=== PATIENT | female | born 1960 | race Caucasian/White ===

== ENCOUNTER 2020-08-23 08:20 | Outpatient (REF) | payer BC, SELFPAY ==
--- NOTE | ~2020-08-23 | MM_ITS ---
EXAMINATION: MM SCREENING DIGITAL BREAST TOMOSYNTHESIS, BILATERAL CLINICAL INFORMATION: Screening. Asymptomatic. The lifetime risk of breast cancer based on the Tyrer-Cuzick Model is 11.5%. COMPARISON: Mammography: August 18, 2019 and studies dating back to March 16, 2014 TECHNIQUE: Digital breast tomosynthesis is performed in both the craniocaudal and mediolateral oblique views along with computer-aided detection (CAD). Synthesized 2D images are generated from the tomosynthesis. FINDINGS: The breasts are almost entirely fatty (ACR BI-RADS breast composition Category a). There are no significant masses, abnormal calcifications, or other abnormalities. MM/MM tomosynthesis screening BI IMPRESSION: There are no significant changes from prior study. ASSESSMENT: BI-RADS 1: Negative RECOMMENDATION: Routine annual mammography screening. This patient's information was entered into a reminder system with a target due date for their next mammogram.
== END 2020-08-23 08:21 | disposition home or self-care (01) ==
LOC: HO.MAMMO 08:20
PROVIDERS: Visit Provider Internal Medicine
DX: Z12.31 Encounter for screening mammogram for malignant neoplasm of breast (principal)
CPT/HCPCS: 77063; 77067

== ENCOUNTER 2020-12-14 07:56 | Outpatient (REF) | payer BC, SELFPAY ==
[2020-12-14 12:06] LABS: Hematocrit 42.3 % (37-47); Hemoglobin 13.1 g/dl (12.0-16.0); Mean Corpuscular Hemoglobin 29.5 pg (27.0-33.0); Mean Corpuscular Volume 95.3 fL (80-98); Mean Platelet Volume 11.8 fL (9.4-12.3); Platelet Count 352 X10*3/uL (160-400); Red Blood Count 4.44 X10*6/uL (4.20-5.50); Red Cell Distribution Width 12.9 % (11.0-16.0); White Blood Count 11.8 X10*3/uL (4.8-10.8)
[2020-12-14 12:16] LABS: Creatinine Urine 101.85 mg/dL; Microalbum/Creatinine Ratio Ur 31.4 ug/mg cr
[2020-12-14 12:20] LABS: Estimated Average Glucose 169 mg/dL; Hemoglobin A1c % 7.5 %
[2020-12-14 12:29] LABS: Alanine Aminotransferase 32 U/L (0-31); Albumin Level 4.4 g/dL (3.5-5.0); Alkaline Phosphatase 80 U/L (39-117); Anion Gap 15 (12-20); Aspartate Amino Transferase 36 U/L (5-31); Bilirubin Total 0.4 mg/dL (0.0-1.0); Blood Urea Nitrogen 18 mg/dL (9-16); Carbon Dioxide 26 mmol/L (22-29); Chloride 102 mmol/L (96-108); Cholesterol 202 mg/dL; Estimated Glomerular Filt Rate > 60; Glucose Fasting 163 mg/dL (60-99); HDL Cholesterol 38 mg/dL; LDL Cholesterol Calculated 91 mg/dl; Potassium 5.1 mmol/L (3.3-5.1); Sodium 138 mmol/L (135-145); Total Protein 7.2 g/dL (6.5-8.0); Triglycerides 365 mg/dL
[2020-12-14 12:32] LABS: TSH reflex Free T4 1.33 uIU/mL (0.32-4.0)
== END 2020-12-14 07:57 | disposition home or self-care (01) ==
LOC: HO.HMGCLDS 07:56
PROVIDERS: PCP Internal Medicine; Visit Provider Internal Medicine
DX: E11.9 Type 2 diabetes mellitus without complications (principal); I10 Essential (primary) hypertension; E78.5 Hyperlipidemia, unspecified; I48.91 Unspecified atrial fibrillation
CPT/HCPCS: 36415; 80053; 80061; 82043; 83036; 84443; 85027

== ENCOUNTER 2021-05-15 07:37 | Outpatient (REF) | payer BC, SELFPAY ==
[2021-05-15 11:25] LABS: MANUAL DIFF FLAG NO
[2021-05-15 11:32] LABS: Basophils Percent Auto 0.3 % (0-2); Eosinophils Absolute Auto 0.3 X10*3/uL (0.0-0.4); Eosinophils Percent Auto 2.3 % (0-4); Hematocrit 42.2 % (37.0-47.0); Hemoglobin 13.4 g/dl (12.0-16.0); Imm Gran Abs Auto 0.05 X10*3/uL (0.00-0.03); Imm Gran Pct Auto 0.4 % (0.0-0.4); Lymphocytes Absolute Auto 3.6 X10*3/uL (1.2-4.9); Lymphocytes Percent Auto 30.6 % (20-40); Mean Corpuscular HGB Conc 31.8 g/dl (31.0-35.0); Mean Corpuscular Volume 94.4 fL (80.0-98.0); Mean Platelet Volume 12.2 fL (9.4-12.3); Monocytes Absolute Auto 0.9 X10*3/uL (0.1-1.2); Monocytes Percent Auto 7.9 % (2-11); Neutrophils Absolute Auto 6.91 x10*3/uL (2.0-8.3); Neutrophils Percent Auto 58.5 % (45-73); Platelet Count 331 X10*3/uL (160-400); Red Blood Count 4.47 X10*6/uL (4.20-5.50); Red Cell Distribution Width 13.2 % (11.0-16.0); White Blood Count 11.8 X10*3/uL (4.8-10.8)
[2021-05-15 11:53] LABS: Estimated Average Glucose 163 mg/dL; Hemoglobin A1c % 7.3 %
[2021-05-15 11:59] LABS: Creatinine Urine 147.22 mg/dL; Microalbum/Creatinine Ratio Ur 53.6 ug/mg cr
[2021-05-15 12:11] LABS: Alanine Aminotransferase 26 U/L (0-31); Albumin Level 4.2 g/dL (3.5-5.0); Alkaline Phosphatase 76 U/L (39-117); Anion Gap 16 (12-20); Aspartate Amino Transferase 30 U/L (5-31); Bilirubin Total 0.3 mg/dL (0.0-1.0); Blood Urea Nitrogen 16 mg/dL (9-16); Calcium 9.7 mg/dL (8.4-10.2); Carbon Dioxide 26 mmol/L (22-29); Chloride 102 mmol/L (96-108); Cholesterol 161 mg/dL; Estimated Glomerular Filt Rate > 60; Glucose Fasting 177 mg/dL (60-99); HDL Cholesterol 32 mg/dL; LDL Cholesterol Calculated 69 mg/dl; Potassium 4.7 mmol/L (3.3-5.1); Sodium 139 mmol/L (135-145); Total Protein 7.1 g/dL (6.5-8.0); Triglycerides 300 mg/dL
== END 2021-05-15 07:38 | disposition home or self-care (01) ==
LOC: HO.HMGCLDS 07:37
PROVIDERS: PCP Internal Medicine; Visit Provider Internal Medicine
DX: E78.5 Hyperlipidemia, unspecified (principal); I10 Essential (primary) hypertension; I48.91 Unspecified atrial fibrillation; E11.9 Type 2 diabetes mellitus without complications
CPT/HCPCS: 36415; 80053; 80061; 82043; 83036; 84443; 85025

== ENCOUNTER 2021-06-19 07:50 | Outpatient (REF) | payer BC, SELFPAY ==
--- NOTE | ~2021-06-19 | US_ITS ---
EXAMINATION: US ABDOMEN COMPLETE CLINICAL INFORMATION: Unspecified abdominal pain. COMPARISON: Ultrasound abdomen complete dated 06/26/2016. CT abdomen and pelvis with contrast dated 08/03/2008. TECHNIQUE: Real-time imaging of the abdominal viscera. FINDINGS: PANCREAS: Visualized head and proximal body the pancreas is homogeneous in echotexture. The rest of the body and the tail of pancreas is not seen. ABDOMINAL AORTA: The mid and distal segments are normal in caliber. Proximal segment is not visualized INFERIOR VENA CAVA: Visualized portions are normal. LIVER: The liver is diffusely echogenic and enlarged measuring 19.5 cm. The liver contour is normal. No focal hepatic lesion. There is no intrahepatic biliary duct dilatation seen. GALLBLADDER: Normal. The gallbladder is physiologically distended without evidence of stones, sludge, polyps, wall thickening or pericholecystic fluid. COMMON BILE DUCT: Normal in caliber measuring 0.9 cm in diameter. RIGHT KIDNEY: Normal. No hydronephrosis. No renal calculi or focal parenchymal lesions. The kidney measures 12.0 cm in maximum dimension. LEFT KIDNEY: There is an anechoic cyst in the upper/midpole measuring 6.3 x 5.9 x 5.8 cm. Previously it measured 5.0 cm No hydronephrosis or renal calculi. The kidney measures 11.4 cm in maximum dimension. SPLEEN: Normal. The spleen measures 8.5 cm in maximum dimension. FREE FLUID: None. US/US abdomen complete IMPRESSION: Hepatomegaly and hepatic steatosis. No focal lesion seen. Anechoic cyst upper/midpole left kidney. Rest of the abdominal ultrasound is unremarkable.
== END 2021-06-19 07:51 | disposition home or self-care (01) ==
LOC: HO.US 07:50
PROVIDERS: PCP Internal Medicine; Visit Provider Internal Medicine
DX: R10.9 Unspecified abdominal pain (principal)
CPT/HCPCS: 76700

== ENCOUNTER → 2021-07-05 15:32 | Outpatient (BNVA) | payer BC, SELFPAY | PROVIDERS: PCP Internal Medicine; Referring Provider Internal Medicine; Visit Provider Nurse Practitioner ==

== ENCOUNTER 2021-07-27 15:09 | Outpatient (REF) | payer BC, SELFPAY ==
[2021-07-27 15:42] LABS: Binax Internal Control QC Valid; Binax Lot number: 9864; Binax Now Covid-19 Ag Negative (Negative)
== END 2021-07-27 15:10 | disposition home or self-care (01) ==
LOC: HO.LAB 15:09
PROVIDERS: Visit Provider Internal Medicine
DX: Z20.822 Contact with and (suspected) exposure to COVID-19 (principal)
CPT/HCPCS: C9803

== ENCOUNTER 2021-08-31 11:28 | Outpatient (REF) | payer OTHER, SELFPAY ==
[2021-08-31 15:12] LABS: MANUAL DIFF FLAG NO
[2021-08-31 15:16] LABS: Basophils Absolute Auto 0.1 X10*3/uL (0.0-0.2); Basophils Percent Auto 0.5 % (0-2); Eosinophils Absolute Auto 0.2 X10*3/uL (0.0-0.4); Eosinophils Percent Auto 1.8 % (0-4); Hematocrit 41.5 % (37.0-47.0); Hemoglobin 13.2 g/dl (12.0-16.0); Imm Gran Abs Auto 0.04 X10*3/uL (0.00-0.03); Imm Gran Pct Auto 0.4 % (0.0-0.4); Lymphocytes Absolute Auto 3.4 X10*3/uL (1.2-4.9); Lymphocytes Percent Auto 31.2 % (20-40); Mean Corpuscular HGB Conc 31.8 g/dl (31.0-35.0); Mean Corpuscular Hemoglobin 29.6 pg (27.0-33.0); Mean Platelet Volume 12.6 fL (9.4-12.3); Monocytes Absolute Auto 0.9 X10*3/uL (0.1-1.2); Monocytes Percent Auto 7.9 % (2-11); Neutrophils Absolute Auto 6.3 x10*3/uL (2.0-8.3); Neutrophils Percent Auto 58.2 % (45-73); Platelet Count 293 X10*3/uL (160-400); Red Blood Count 4.46 X10*6/uL (4.20-5.50); Red Cell Distribution Width 13.1 % (11.0-16.0); White Blood Count 10.9 X10*3/uL (4.8-10.8)
[2021-08-31 15:21] LABS: INTERNATIONAL NORM RATIO 1.9 (0.9-1.1); Prothrombin Time 21.6 SEC (9.9-13.0)
[2021-08-31 15:23] LABS: Anion Gap 12 (12-20); Blood Urea Nitrogen 16 mg/dL (9-16); Calcium 9.7 mg/dL (8.4-10.2); Carbon Dioxide 30 mmol/L (22-29); Chloride 102 mmol/L (96-108); Estimated Glomerular Filt Rate > 60; Glucose Random 253 mg/dL (60-115); Potassium 4.3 mmol/L (3.3-5.1); Sodium 140 mmol/L (135-145)
== END 2021-08-31 11:29 | disposition home or self-care (01) ==
LOC: HO.HMGCLDS 11:28
PROVIDERS: PCP Internal Medicine; Visit Provider Internal Medicine Clinical Cardiac Electrophysiology
DX: I48.91 Unspecified atrial fibrillation (principal)
CPT/HCPCS: 36415; 80048; 85025; 85610

== ENCOUNTER 2021-11-09 07:31 | Outpatient (REF) | payer OTHER, SELFPAY ==
[2021-11-09 11:39] LABS: Estimated Average Glucose 166 mg/dL; Hemoglobin A1c % 7.4 %
[2021-11-09 12:14] LABS: Alanine Aminotransferase 31 U/L (0-31); Albumin Level 4.3 g/dL (3.5-5.0); Alkaline Phosphatase 89 U/L (39-117); Anion Gap 13 (12-20); Aspartate Amino Transferase 29 U/L (5-31); Bilirubin Total 0.3 mg/dL (0.0-1.0); Blood Urea Nitrogen 14 mg/dL (9-16); Calcium 10.1 mg/dL (8.4-10.2); Carbon Dioxide 30 mmol/L (22-29); Chloride 101 mmol/L (96-108); Cholesterol 155 mg/dL; Estimated Glomerular Filt Rate > 60; Glucose Fasting 164 mg/dL (60-99); HDL Cholesterol 36 mg/dL; LDL Cholesterol Calculated 78 mg/dl; Potassium 4.7 mmol/L (3.3-5.1); Sodium 139 mmol/L (135-145); Total Protein 7.2 g/dL (6.5-8.0); Triglycerides 206 mg/dL
[2021-11-09 12:30] LABS: Creatinine Urine 110.64 mg/dL; Microalbum/Creatinine Ratio Ur 44.2 ug/mg cr
== END 2021-11-09 07:32 | disposition home or self-care (01) ==
LOC: HO.HMGCLDS 07:31
PROVIDERS: PCP Internal Medicine; Visit Provider Physician Assistant
DX: I48.0 Paroxysmal atrial fibrillation (principal); I10 Essential (primary) hypertension; E78.5 Hyperlipidemia, unspecified; E11.9 Type 2 diabetes mellitus without complications
CPT/HCPCS: 36415; 80053; 80061; 82043; 83036

== ENCOUNTER → 2021-11-22 09:04 | Day surgery (SDC) | payer OTHER, SELFPAY ==
[2021-11-15 19:48] VITALS: BMI 37.2
--- NOTE | 2021-11-21 10:31 | HO.ANESPROP2 ---
Documented by User: Ruth Ferguson NP 11/21/21 10:34 HPI - Anesthesia Eval Consult details Narrative: 61yo F for Upper Endoscopy and Colonoscopy Xarelto for afib. s/p cardiac ablation 09/10/21 [facility] Active Problems Active Problems: All Active Problems (Updated 11/15/21 @ 19:47 by Caryn Guerrero, RN) Epigastric pain (Acute) Irritable bowel syndrome with both constipation and diarrhea (Acute) Abdominal pain (Acute) LORETTA (obstructive sleep apnea) (Acute) Normal colonoscopy (Acute) Mammogram normal (Acute) Normal Pap smear (Acute) Smoker (Acute) COPD (chronic obstructive pulmonary disease) (Acute) Hyperlipidemia (Acute) HTN (hypertension) (Acute) A-fib (Acute) DM type 2 (diabetes mellitus, type 2) (Acute) Past Medical History Medical History A-fib Abdominal pain COPD (chronic obstructive pulmonary disease) DM type 2 (diabetes mellitus, type 2) Ectopic GERD (gastroesophageal reflux disease) HTN (hypertension) Hyperlipidemia Mammogram normal Normal colonoscopy Normal Pap smear LORETTA (obstructive sleep apnea) Smoker Family History Family History Father Hypertension Diabetes Mother Hypertension Diabetes Heart attack History of open heart surgery Breast cancer Surgical History Surgical History (Updated 11/15/21 @ 19:45 by Caryn Guerrero RN) H/O unilateral salpingectomy History of ankle surgery History of cardiac radiofrequency ablation (RFA) Hx of removal of ovary Social History Social History Household 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:: , 3 children, 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, 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 intake: current Alcohol intake frequency: holidays/special occasions only Patient Tobacco Use Status: Current everyday Tobacco user Tobacco use type: Cigarette Cigarette Packs Per Day: 0.25 Cigarettes Per Day: 5.0 Years Smoked: 30 Smoked in Last 30 Days: Yes e-Cigarette/Vaping Use: Never Used Use of substances other than those prescribed or required for medical reasons: No Are you DNR?: No Advance Directives: No Advance Directives Information Provided: No Advance Directives on File: No Recently lost weight without trying: No Nutrition Risks: No Nutritional Risk Patient : No service: No Current occupational status: employed Current occupation: [employer] Current occupational exposures/hazards: No Cognitive needs: No Hearing needs: No Vision needs: Yes Meds Allergies Allergy/AdvReac Type Severity Reaction Status Date / Time No Known Allergies Allergy Verified 11/12/21 14:04 Home Medications Medication Instructions Recorded Confirmed Last Taken Type albuterol sulfate 90 mcg/actuation 2 puff INHALATION Q6H PRN 11/29/20 11/15/21 Unknown History aerosol inhaler (ProAir HFA) alcohol swabs pad TOPICAL QID 11/29/20 11/12/21 Unknown History blood sugar diagnostic #10 ea 11/29/20 11/15/21 Unknown History diltiazem HCl 240 mg 240 mg PO DAILY 11/29/20 11/15/21 Unknown History capsule,extended release 24 hr, controlled lancets #100 ea 11/29/20 11/15/21 Unknown History rivaroxaban 20 mg tablet 20 mg PO QPM 11/29/20 11/15/21 Unknown History multivitamin 1 tab PO DAILY 07/05/21 11/15/21 Unknown History lisinopril 10 mg tablet 20 mg PO DAILY tab 11/12/21 11/15/21 Unknown History Exam Exam Date and Time: November 21, 2021 1031 Height,Weight and Vital Signs: Height 5 ft 4 in Weight 98.43 kg Pertinent Lab Results Pertinent Lab Results: Laboratory Tests 08/31/21 11/09/21 11:39 07:38 WBC 10.9 H Hgb 13.2 Hct 41.5 Plt Count 293 Sodium 139 Potassium 4.7 Chloride 101 Carbon Dioxide 30 H BUN 14 Creatinine 0.88 Narrative Narrative: EKG 09/2021 SR @ 78 Echo 09/2019 Nml LV sys function. EF 60-65%. Nml LV diastolic function. Nml RV size and function. No significant valve disease Assessment and Plan Assessment Anesthesia Assessment: Chart Reviewed Documented by User: Oswald Templeton MD 11/22/21 10:44 HPI - Anesthesia Eval Consult details Narrative: 61yo F Presenting for elective Upper Endoscopy and Colonoscopy. On examination found to have a 70 mm Hg blood pressure difference between her left and right arms. Readings confirmed manually. Available record including cardiology note reviewed. Patient has known right subclavian stenosis, no information available on the left subclavian status. She endorses symptoms of occasional dizziness; denies history of strokes. She is not physically active and does not participate in exercise. Given her history of multi-peripheral vessel disease and large blood pressure discrepancy between the 2 arms, I am concerned about vertebro-basilar insufficiency and flow reversal. I discussed my concerns with the patient including increased risk of stroke with changes in BP under anesthesia. Patient and I agreed to defer the procedure until she undergoes workup for vertebral basilar insufficiency (CTA/MRA/angiography etc). Once she has been ruled out for VBI/flow reversal and her blood pressure discrepancy has been addressed/cleared by cardiology, we will be happy to see her back for her elective procedure. [facility] Past Medical History Medical History A-fib Abdominal pain COPD (chronic obstructive pulmonary disease) DM type 2 (diabetes mellitus, type 2) Ectopic GERD (gastroesophageal reflux disease) HTN (hypertension) Hyperlipidemia Mammogram normal Normal colonoscopy Normal Pap smear LORETTA (obstructive sleep apnea) Smoker Family History Family History Father Hypertension Diabetes Mother Hypertension Diabetes Heart attack History of open heart surgery Breast cancer Surgical History Surgical History (Updated 11/15/21 @ 19:45 by Caryn Guerrero RN) H/O unilateral salpingectomy History of ankle surgery History of cardiac radiofrequency ablation (RFA) Hx of removal of ovary Social History Social History Household 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:: , 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, 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, 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 intake: current Alcohol intake frequency: holidays/special occasions only Patient Tobacco Use Status: Current everyday Tobacco user Tobacco use type: Cigarette Cigarette Packs Per Day: 0.25 Cigarettes Per Day: 5.0 Years Smoked: 30 Smoked in Last 30 Days: Yes e-Cigarette/Vaping Use: Never Used Use of substances other than those prescribed or required for medical reasons: No Are you DNR?: No Advance Directives: No Advance Directives Information Provided: No Advance Directives on File: No Recently lost weight without trying: No Nutrition Risks: No Nutritional Risk Patient : No service: No Current occupational status: employed Current occupation: [employer] Current occupational exposures/hazards: No Cognitive needs: No Hearing needs: No Vision needs: Yes Meds Allergies Allergy/AdvReac Type Severity Reaction Status Date / Time No Known Allergies Allergy Verified 11/12/21 14:04 Home Medications Medication Instructions Recorded Confirmed Last Taken Type albuterol sulfate 90 mcg/actuation 2 puff INHALATION Q6H PRN 11/29/20 11/15/21 Unknown History aerosol inhaler (ProAir HFA) alcohol swabs pad TOPICAL QID 11/29/20 11/12/21 Unknown History blood sugar diagnostic #10 ea 11/29/20 11/15/21 Unknown History diltiazem HCl 240 mg 240 mg PO DAILY 11/29/20 11/15/21 Unknown History capsule,extended release 24 hr, controlled lancets #100 ea 11/29/20 11/15/21 Unknown History rivaroxaban 20 mg tablet 20 mg PO QPM 11/29/20 11/15/21 Unknown History multivitamin 1 tab PO DAILY 07/05/21 11/15/21 Unknown History lisinopril 10 mg tablet 20 mg PO DAILY tab 11/12/21 11/15/21 Unknown History Assessment and Plan Anesthetic Plan Anesthetic Plan: Other ( Procedure canceled)
[2021-11-22 09:22] VITALS: BMI 35.9
[2021-11-22] MEDS: Lactated Ringers 1,000 ML 50 ML IVCONT (09:44)
[2021-11-22 09:46] LABS: Glucose, Whole Blood 129 mg/dL (60-115)
--- NOTE | 2021-11-22 09:49 | P.HPSUR_ITS ---
Pre-Procedural Eval Section A Date of Service: 11/22/21 Section B Chief Complaint: Epigastric pain,IBS Relevant Family History (Specify if Yes): No Relevant Social History: Tobacco Use Present Medications: see Short Stay Collaborative assessment Medical History: Significant History (A-fib Abdominal pain COPD (chronic obstructive pulmonary disease) DM type 2 (diabetes mellitus, type 2) Ectopic GERD (gastroesophageal reflux disease) HTN (hypertension) Hyperlipidemia Mammogram normal Normal colonoscopy Normal Pap smear LORETTA (obstructive sleep apnea) Smoker) History of Previous Operations: Relevant previous surgery/procedure and date(s) (H/O unilateral salpingectomy History of ankle surgery History of cardiac radiofrequency ablation (RFA) Hx of removal of ovary) Allergies: Allergies Allergy/AdvReac Type Severity Reaction Status Date / Time No Known Allergies Allergy Verified 11/12/21 14:04 Review of Systems Sugical H&P ROS: Negative: Constitution, Cardiovascular, Respiratory, Neurological, Psychiatric, Hem-Onc, Allergic/Immunologic, Gastrointestinal, Genitourinary, Musculoskeletal, Integumentary, Endocrine and Eyes/Ears/Nose/Throat Exam Surgical H&P Exam: Normal: Heart, Normal: Lungs, Normal: Abdomen, Normal: Skin and Normal: Neurological and Significant Findings: HEENT (bruit) and Significant Findings: Extremities Exam Comment: weak pulse in left arm compare to right, discrepancy in BP in left and right arms, bruit in neck Plan Diagnosis/Plan: Change I have reviewed the history and physical and performed a pertinent physical examination on my patient.. After discussion with anesthesia case was cancelled, pt will f/u with her research and development chemist for assessment for subclavian stenosis.
--- NOTE | 2021-11-22 10:33 | P.BOP_ITS ---
Brief Operative Note Date of Service: 11/22/21 Pre-op diagnosis: Epigastric pain, Surgeon: Donell Lopez MD Was an Telephone Operator Receptionist used for this Procedure?: No
--- NOTE | 2021-11-22 10:34 | PC.NURSE ---
Per Dr Templeton due to signifigant difference in blood pressure readings on arms, patient will need cardiac clearance with specific detail to bp discrepancies. Patient aware and verbalizes understanding to the plan. Dr Templeton to print preop notes so patient has detailed description
== END ==
PROVIDERS: PCP Internal Medicine; Visit Provider Internal Medicine Gastroenterology
DX: K58.2 Mixed irritable bowel syndrome (principal); Z53.8 Procedure and treatment not carried out for other reasons; E11.9 Type 2 diabetes mellitus without complications; I10 Essential (primary) hypertension
CPT/HCPCS: 82947

== ENCOUNTER 2022-03-27 07:35 | Outpatient (REF) | payer OTHER, SELFPAY ==
[2022-03-27 11:40] LABS: Hematocrit 43.6 % (37.0-47.0); Hemoglobin 13.6 g/dl (12.0-16.0); Mean Corpuscular HGB Conc 31.2 g/dl (31.0-35.0); Mean Corpuscular Hemoglobin 29.3 pg (27.0-33.0); Mean Platelet Volume 12.3 fL (9.4-12.3); Platelet Count 322 X10*3/uL (160-400); Red Blood Count 4.64 X10*6/uL (4.20-5.50); Red Cell Distribution Width 14.1 % (11.0-16.0); White Blood Count 10.2 X10*3/uL (4.8-10.8)
[2022-03-27 11:46] LABS: Estimated Average Glucose 134 mg/dL; Hemoglobin A1c % 6.3 %
[2022-03-27 11:58] LABS: Creatinine Urine 95.64 mg/dL; Microalbum/Creatinine Ratio Ur 36.5 ug/mg cr
[2022-03-27 14:21] LABS: Alanine Aminotransferase 30 U/L (0-31); Albumin Level 4.3 g/dL (3.5-5.0); Alkaline Phosphatase 80 U/L (39-117); Anion Gap 18 (12-20); Aspartate Amino Transferase 32 U/L (5-31); Bilirubin Total 0.2 mg/dL (0.0-1.0); Blood Urea Nitrogen 13 mg/dL (9-16); Calcium 9.5 mg/dL (8.4-10.2); Carbon Dioxide 24 mmol/L (22-29); Chloride 104 mmol/L (96-108); Cholesterol 222 mg/dL; Estimated Glomerular Filt Rate > 60; Glucose Fasting 103 mg/dL (60-99); HDL Cholesterol 34 mg/dL; LDL Cholesterol Calculated 124 mg/dl; Potassium 4.4 mmol/L (3.3-5.1); Sodium 142 mmol/L (135-145); Total Protein 7.2 g/dL (6.5-8.0); Triglycerides 323 mg/dL
== END 2022-03-27 07:36 | disposition home or self-care (01) ==
LOC: HO.HMGCLDS 07:35
PROVIDERS: PCP Internal Medicine; Visit Provider Internal Medicine
DX: E78.5 Hyperlipidemia, unspecified (principal); I10 Essential (primary) hypertension; I48.91 Unspecified atrial fibrillation; E11.9 Type 2 diabetes mellitus without complications
CPT/HCPCS: 36415; 80053; 80061; 82043; 83036; 85027

== ENCOUNTER → 2022-03-28 15:11 | Outpatient (REF) | payer OTHER, SELFPAY | LOC: HO.SL 15:11 | PROVIDERS: PCP Internal Medicine; Visit Provider Internal Medicine | DX: G47.33 Obstructive sleep apnea (adult) (pediatric) (principal) | CPT/HCPCS: 95806 ==

== ENCOUNTER 2022-04-09 09:24 | Outpatient (REF) | payer OTHER, SELFPAY ==
[2022-04-09 11:40] LABS: INTERNATIONAL NORM RATIO 3.8 (0.9-1.1); Prothrombin Time 46.2 SEC (10.0-13.1)
== END 2022-04-09 09:25 | disposition home or self-care (01) ==
LOC: HO.HMGCLDS 09:24
PROVIDERS: PCP Internal Medicine; Visit Provider Internal Medicine
DX: I48.91 Unspecified atrial fibrillation (principal)
CPT/HCPCS: 36415; 85610

== ENCOUNTER 2022-04-15 07:35 | Outpatient (REF) | payer OTHER, SELFPAY ==
[2022-04-15 11:35] LABS: INTERNATIONAL NORM RATIO 4.1 (0.9-1.1); Prothrombin Time 49.8 SEC (10.0-13.1)
== END 2022-04-15 07:36 | disposition home or self-care (01) ==
LOC: HO.HMGCLDS 07:35
PROVIDERS: PCP Internal Medicine; Visit Provider Internal Medicine
DX: I48.91 Unspecified atrial fibrillation (principal)
CPT/HCPCS: 36415; 85610

== ENCOUNTER 2022-04-17 07:31 | Outpatient (REF) | payer OTHER, SELFPAY ==
[2022-04-17 11:20] LABS: INTERNATIONAL NORM RATIO 2.2 (0.9-1.1); Prothrombin Time 25.9 SEC (10.0-13.1)
== END 2022-04-17 07:32 | disposition home or self-care (01) ==
LOC: HO.HMGCLDS 07:31
PROVIDERS: PCP Internal Medicine; Visit Provider Internal Medicine
DX: I48.91 Unspecified atrial fibrillation (principal)
CPT/HCPCS: 36415; 85610

== ENCOUNTER 2022-04-22 08:50 | Outpatient (REF) | payer OTHER, SELFPAY ==
[2022-04-22 11:28] LABS: INTERNATIONAL NORM RATIO 2.2 (0.9-1.1); Prothrombin Time 25.5 SEC (10.0-13.1)
== END 2022-04-22 08:51 | disposition home or self-care (01) ==
LOC: HO.LABR 08:50
PROVIDERS: PCP Internal Medicine; Visit Provider Internal Medicine
DX: I48.91 Unspecified atrial fibrillation (principal)
CPT/HCPCS: 36415; 85610

== ENCOUNTER 2022-04-29 07:33 | Outpatient (REF) | payer OTHER, SELFPAY ==
[2022-04-29 11:39] LABS: INTERNATIONAL NORM RATIO 2.7 (0.9-1.1)
== END 2022-04-29 07:34 | disposition home or self-care (01) ==
LOC: HO.HMGCLDS 07:33
PROVIDERS: PCP Internal Medicine; Visit Provider Internal Medicine
DX: I48.91 Unspecified atrial fibrillation (principal)
CPT/HCPCS: 36415; 85610

== ENCOUNTER 2022-05-13 07:31 | Outpatient (REF) | payer OTHER, SELFPAY ==
[2022-05-13 12:02] LABS: INTERNATIONAL NORM RATIO 2.7 (0.9-1.1); Prothrombin Time 31.9 SEC (10.0-13.1)
[2022-05-13 12:12] LABS: Alanine Aminotransferase 23 U/L (0-31); Albumin Level 4.4 g/dL (3.5-5.0); Alkaline Phosphatase 74 U/L (39-117); Anion Gap 17 (12-20); Aspartate Amino Transferase 26 U/L (5-31); Bilirubin Total 0.4 mg/dL (0.0-1.0); Blood Urea Nitrogen 13 mg/dL (9-16); Calcium 9.5 mg/dL (8.4-10.2); Carbon Dioxide 26 mmol/L (22-29); Chloride 102 mmol/L (96-108); Cholesterol 161 mg/dL; Estimated Glomerular Filt Rate > 60; Glucose Fasting 155 mg/dL (60-99); HDL Cholesterol 31 mg/dL; LDL Cholesterol Calculated 84 mg/dl; Potassium 4.7 mmol/L (3.3-5.1); Sodium 140 mmol/L (135-145); Total Protein 7.3 g/dL (6.5-8.0); Triglycerides 232 mg/dL
[2022-05-13 12:28] LABS: Creatinine Urine 143.48 mg/dL
[2022-05-13 12:32] LABS: Estimated Average Glucose 140 mg/dL; Hemoglobin A1c % 6.5 %
== END 2022-05-13 07:32 | disposition home or self-care (01) ==
LOC: HO.HMGCLR 07:31
PROVIDERS: Absent Provider Internal Medicine; PCP Internal Medicine; Visit Provider Internal Medicine
DX: E11.9 Type 2 diabetes mellitus without complications (principal); I48.91 Unspecified atrial fibrillation; I10 Essential (primary) hypertension; E78.5 Hyperlipidemia, unspecified; G47.33 Obstructive sleep apnea (adult) (pediatric)
CPT/HCPCS: 36415; 80053; 80061; 82043; 83036; 85610

== ENCOUNTER → 2022-06-09 19:30 | Outpatient (REF) | payer OTHER, SELFPAY | LOC: HO.SL 19:30 | PROVIDERS: PCP Internal Medicine; Visit Provider Nurse Practitioner Family | DX: G47.34 Idiopathic sleep related nonobstructive alveolar hypoventilation (principal); G47.33 Obstructive sleep apnea (adult) (pediatric) | CPT/HCPCS: 95811 ==

== ENCOUNTER 2022-06-10 07:48 | Outpatient (REF) | payer OTHER, SELFPAY ==
[2022-06-10 11:30] LABS: INTERNATIONAL NORM RATIO 2.8 (0.9-1.1); Prothrombin Time 34.1 SEC (10.0-13.1)
== END 2022-06-10 07:49 | disposition home or self-care (01) ==
LOC: HO.HMGCLR 07:48
PROVIDERS: PCP Internal Medicine; Visit Provider Internal Medicine
DX: I48.91 Unspecified atrial fibrillation (principal); G47.34 Idiopathic sleep related nonobstructive alveolar hypoventilation; G47.33 Obstructive sleep apnea (adult) (pediatric)
CPT/HCPCS: 36415; 85610

== ENCOUNTER 2022-07-16 07:27 | Outpatient (REF) | payer OTHER, SELFPAY ==
[2022-07-16 11:41] LABS: INTERNATIONAL NORM RATIO 3.3 (0.9-1.1); Prothrombin Time 40.1 SEC (10.0-13.1)
== END 2022-07-16 07:28 | disposition home or self-care (01) ==
LOC: HO.HMGCLR 07:27
PROVIDERS: PCP Internal Medicine; Visit Provider Internal Medicine
DX: I48.91 Unspecified atrial fibrillation (principal)
CPT/HCPCS: 36415; 85610

== ENCOUNTER → 2022-07-23 14:21 | Outpatient (BNVA) | payer OTHER, SELFPAY | PROVIDERS: PCP Internal Medicine; Referring Provider Internal Medicine; Visit Provider Nurse Practitioner | DX: Z13.89 Encounter for screening for other disorder (principal) ==

== ENCOUNTER 2022-07-26 12:12 | Outpatient (REF) | payer OTHER, SELFPAY ==
[2022-07-26 14:22] LABS: INTERNATIONAL NORM RATIO 2.4 (0.9-1.1); Prothrombin Time 28.3 SEC (10.0-13.1)
== END 2022-07-26 12:13 | disposition home or self-care (01) ==
LOC: HO.HMGCLR 12:12
PROVIDERS: PCP Internal Medicine; Visit Provider Internal Medicine
DX: I48.91 Unspecified atrial fibrillation (principal)
CPT/HCPCS: 36415; 85610

== ENCOUNTER 2022-08-02 08:10 | Outpatient (REF) | payer OTHER, SELFPAY ==
--- NOTE | ~2022-08-02 | MM_ITS ---
EXAMINATION: MM SCREENING DIGITAL BREAST TOMOSYNTHESIS, BILATERAL CLINICAL INFORMATION: Screening. Asymptomatic. The lifetime risk of breast cancer based on the Tyrer-Cuzick Model is 10%. COMPARISON: Mammography: 08/23/2020, 08/18/2019, 06/11/2018 TECHNIQUE: Digital breast tomosynthesis is performed in both the craniocaudal and mediolateral oblique views along with computer-aided detection (CAD). Synthesized 2D images are generated from the tomosynthesis. FINDINGS: There are scattered areas of fibroglandular density (ACR BI-RADS breast composition Category b). Background stromal and fibroglandular densities are similar to prior studies. No significant mass. No architectural abnormality. No abnormal calcifications. The axilla and skin contours are unremarkable. MM/MM tomosynthesis screening BI IMPRESSION: No mammographic evidence of malignancy. ASSESSMENT: BI-RADS 1: Negative RECOMMENDATION: Routine annual mammography screening. This patient's information was entered into a reminder system with a target due date for their next mammogram.
== END 2022-08-02 08:11 | disposition home or self-care (01) ==
LOC: HO.MAMMO 08:10
PROVIDERS: PCP Internal Medicine; Visit Provider Internal Medicine
DX: Z12.31 Encounter for screening mammogram for malignant neoplasm of breast (principal)
CPT/HCPCS: 77063; 77067

== ENCOUNTER 2022-08-12 08:55 | Outpatient (REF) | payer OTHER, SELFPAY ==
[2022-08-12 12:15] LABS: Prothrombin Time 24.1 SEC (10.0-13.1)
== END 2022-08-12 08:56 | disposition home or self-care (01) ==
LOC: HO.HMGCLDS 08:55
PROVIDERS: Visit Provider Internal Medicine
DX: I48.91 Unspecified atrial fibrillation (principal)
CPT/HCPCS: 36415; 85610

== ENCOUNTER 2022-08-22 08:31 | Outpatient (REF) | payer OTHER, SELFPAY ==
[2022-08-22 11:29] LABS: INTERNATIONAL NORM RATIO 2.4 (0.9-1.1)
== END 2022-08-22 08:32 | disposition home or self-care (01) ==
LOC: HO.HMGCLR 08:31
PROVIDERS: PCP Internal Medicine; Visit Provider Internal Medicine
DX: I48.91 Unspecified atrial fibrillation (principal)
CPT/HCPCS: 36415; 85610

== ENCOUNTER 2022-10-15 14:08 | Outpatient (REF) | payer OTHER, SELFPAY ==
[2022-10-15 17:06] LABS: INTERNATIONAL NORM RATIO 2.6 (0.9-1.1); Prothrombin Time 31.3 SEC (10.0-13.1)
== END 2022-10-15 14:09 | disposition home or self-care (01) ==
LOC: HO.HMGCLR 14:08
PROVIDERS: PCP Internal Medicine; Visit Provider Internal Medicine
DX: I48.91 Unspecified atrial fibrillation (principal)
CPT/HCPCS: 36415; 85610

== ENCOUNTER 2022-10-30 15:05 | Outpatient (REF) | payer MEDICAID, SELFPAY ==
[2022-10-30 16:26] LABS: INTERNATIONAL NORM RATIO 2.6 (0.9-1.1); Prothrombin Time 30.9 SEC (10.0-13.1)
== END 2022-10-30 15:06 | disposition home or self-care (01) ==
LOC: HO.HMGCLDS 15:05
PROVIDERS: Visit Provider Internal Medicine
DX: I48.91 Unspecified atrial fibrillation (principal)
CPT/HCPCS: 36415; 85610

== ENCOUNTER 2022-11-26 08:14 | Outpatient (REF) | payer OTHER, SELFPAY ==
[2022-11-26 11:10] LABS: MANUAL DIFF FLAG NO
[2022-11-26 11:38] LABS: Basophils Absolute Auto 0.1 X10*3/uL (0.0-0.2); Basophils Percent Auto 0.5 % (0-2); Eosinophils Absolute Auto 0.3 X10*3/uL (0.0-0.4); Eosinophils Percent Auto 2.8 % (0-4); Hematocrit 45.1 % (37.0-47.0); Hemoglobin 14.4 g/dl (12.0-16.0); Imm Gran Abs Auto 0.03 X10*3/uL (0.00-0.03); Imm Gran Pct Auto 0.3 % (0.0-0.4); Lymphocytes Percent Auto 26.8 % (20-40); Mean Corpuscular HGB Conc 31.9 g/dl (31.0-35.0); Mean Corpuscular Hemoglobin 29.9 pg (27.0-33.0); Mean Corpuscular Volume 93.8 fL (80.0-98.0); Mean Platelet Volume 12.2 fL (9.4-12.3); Monocytes Absolute Auto 0.8 X10*3/uL (0.1-1.2); Monocytes Percent Auto 6.8 % (2-11); Neutrophils Absolute Auto 6.9 x10*3/uL (2.0-8.3); Neutrophils Percent Auto 62.8 % (45-73); Platelet Count 304 X10*3/uL (160-400); Red Blood Count 4.81 X10*6/uL (4.20-5.50); Red Cell Distribution Width 13.3 % (11.0-16.0)
[2022-11-26 11:42] LABS: INTERNATIONAL NORM RATIO 1.9 (0.9-1.1); Prothrombin Time 22.2 SEC (10.0-13.1)
[2022-11-26 11:48] LABS: Estimated Average Glucose 137 mg/dL; Hemoglobin A1c % 6.4 %
[2022-11-26 11:56] LABS: Alanine Aminotransferase 25 U/L (0-31); Albumin Level 4.3 g/dL (3.5-5.0); Alkaline Phosphatase 81 U/L (39-117); Anion Gap 12 (12-20); Aspartate Amino Transferase 24 U/L (5-31); Bilirubin Total 0.4 mg/dL (0.0-1.0); Blood Urea Nitrogen 18 mg/dL (9-16); Calcium 9.8 mg/dL (8.4-10.2); Carbon Dioxide 32 mmol/L (22-29); Chloride 100 mmol/L (96-108); Cholesterol 141 mg/dL; Estimated Glomerular Filt Rate > 60; Glucose Fasting 139 mg/dL (60-99); HDL Cholesterol 37 mg/dL; LDL Cholesterol Calculated 79 mg/dl; Potassium 4.6 mmol/L (3.3-5.1); Sodium 139 mmol/L (135-145); Total Protein 7.1 g/dL (6.5-8.0); Triglycerides 127 mg/dL
[2022-11-26 12:20] LABS: Creatinine Urine 23.36 mg/dL; Microalbumin Urine < 5.0 mg/L
== END 2022-11-26 08:15 | disposition home or self-care (01) ==
LOC: HO.HMGCLR 08:14
PROVIDERS: Absent Provider Internal Medicine; PCP Internal Medicine; Visit Provider Internal Medicine
DX: E11.9 Type 2 diabetes mellitus without complications (principal); E78.5 Hyperlipidemia, unspecified; I10 Essential (primary) hypertension; I48.91 Unspecified atrial fibrillation
CPT/HCPCS: 36415; 80053; 80061; 82043; 83036; 85025; 85610

== ENCOUNTER 2022-12-10 09:15 | Outpatient (REF) | payer OTHER, SELFPAY ==
[2022-12-10 11:38] LABS: INTERNATIONAL NORM RATIO 1.6 (0.9-1.1); Prothrombin Time 19.3 SEC (10.0-13.1)
== END 2022-12-10 09:16 | disposition home or self-care (01) ==
LOC: HO.HMGCLR 09:15
PROVIDERS: PCP Internal Medicine; Visit Provider Internal Medicine
DX: I48.91 Unspecified atrial fibrillation (principal)
CPT/HCPCS: 36415; 85610

== ENCOUNTER → 2022-12-25 08:47 | Outpatient (BNVA) | payer OTHER, SELFPAY | PROVIDERS: PCP Internal Medicine; Visit Provider Nurse Practitioner Family | DX: G47.33 Obstructive sleep apnea (adult) (pediatric) (principal); G47.34 Idiopathic sleep related nonobstructive alveolar hypoventilation | CPT/HCPCS: 99212 ==

== ENCOUNTER 2023-01-21 14:27 | Outpatient (AMB) | payer OTHER, SELFPAY ==
--- NOTE | 2023-01-21 14:29 | A.OFFVIS_ITS ---
Intake Vital Signs 01/21/23 14:52 01/21/23 14:56 Height 5 ft 4 in Weight 180 lb 12.465 oz BMI 31.0 BP 82/55 L 162/66 H Blood Pressure Location Lt brachial Rt brachial Position Sitting Sitting Pulse 94 Intake Visit Reasons: 6 month follow up Intake Note: Phyllis presents in the office as a 6 month follow up. CC: She states that she is not having any concerns today. 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 Frost said he could not see why her procedure was stopped. I want to get that in writing from him so that there are no further problems. [facility] [address] [place] [address], [address] [place] [address],?[id number] Get Directions [email or web address] Apparently, she had a large differential pressure from rt to left arm. She has been doing okay with the GI sx, she feels that the famotidine helped, but not so much the bentyl. .? RETURN OFFICE VISIT IN 6 MONTHS and I recommend he not schedule another procedure until we have written confirmation from her senior contracts administrator that this is seeing will avoid putting her through any additional inconvenience. (2) Irritable bowel syndrome with both constipation and diarrhea: ?Code(s): K58.2 - Mixed irritable bowel syndrome EGD Procedure was canceled due to subclavian stenosis and the patient needs to follow up with Cardiology Biopsy TODAY'S VISIT She found that the urgency with her bowels is driven by high fat foods like butter and [place]. She ran out of her famotidine and at that time had GERD, but this was because she lost her job and did not have insurance. She is hoping to retire in April. Her Julius is also my patient and was supposed to go for EGD/colonoscopy, but his HR was high and he was found to be in afib - he has had 4 cardioversions and he has not converted to NSR. He is on blood thinners, and begin ?all of this is quite a navarrete for me.? Because of all these troubles and the insurance sure fall she is willing to continue on her famotidine and we will discuss again if she needs an EGD in 6 mo nths. [facility] Medical History A-fib Abdominal pain COPD (chronic obstructive pulmonary disease) DM type 2 (diabetes mellitus, type 2) Ectopic GERD (gastroesophageal reflux disease) HTN (hypertension) Hyperlipidemia Mammogram normal Normal colonoscopy Normal Pap smear LORETTA (obstructive sleep apnea) Smoker Surgical History H/O unilateral salpingectomy History of ankle surgery History of cardiac radiofrequency ablation (RFA) Hx of removal of ovary Family History Father Hypertension Diabetes Mother Hypertension Diabetes Heart attack History of open heart surgery Breast cancer Social History Household 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:: , 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, 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, 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 intake: current Alcohol intake frequency: holidays/special occasions only Patient Tobacco Use Status: Current everyday Tobacco user Tobacco use type: Cigarette Cigarette Packs Per Day: 0.25 Cigarettes Per Day: 5.0 Years Smoked: 30 e-Cigarette/Vaping Use: Never Used service: No Current occupational status: employed Current occupation: [employer] Current occupational exposures/hazards: No Cognitive needs: No Hearing needs: No Vision needs: Yes Review of Systems Const Denies fatigue, Denies fever(s), Denies night sweats, Denies poor appetite and Denies weight loss ENT Reports Normal hearing present, Denies dental pain, Denies dysphagia, Denies hearing loss, Denies mouth pain, Denies odynophagia, Denies throat swelling, Denies tongue swelling and Reports other (Dentition adequate) Card Reports no additional complaints Resp Reports no additional complaints GI Reports abdominal pain, Denies melena, Denies bloating, Denies hematochezia, Denies constipation, Denies GI cramping, Denies dysphagia, Denies excessive flatus, Denies early satiety, Reports heartburn, Denies diarrhea, Reports loose stools, Denies nausea, Denies odynophagia, Denies vomiting and Denies hematemesis Skin/Breast Denies pruritus, Denies lesions, Denies rash and Denies jaundice Neuro Reports Normal hearing present and Denies Abnormal speech present Endo Denies fatigue Aller/Immun Denies throat swelling and Denies tongue swelling Physical Exam Vital Signs: Last Vital Signs Pulse 94 01/21/23 14:52 BP 162/66 H 01/21/23 14:56 BMI result Body Mass Index 31.0 Const General: cooperative, no acute distress, well developed and well groomed Nutritional Appearance: well nourished and obese Orientation/consciousness: oriented to person, oriented to place and oriented to time Limitations: No language barrier HEENT Head: Yes normocephalic and Yes atraumatic Eyes General: appearance normal, both eyes and all related structures Pupils: Equal, round and reactive pupils present Neck Neck: Yes normal visual inspection and Yes no lymphadenopathy Thyroid: Thyroid normal Resp Effort & Inspection: normal respiratory effort and able to speak in complete sentences Auscultation: clear to auscultation bilaterally Cardio Rate: regular rate Rhythm: regular rhythm Heart sounds: Normal, physiologic split S2 sound present Peripheral pulses: radial pulses present and posterior tibial pulses present GI Inspection: No distended, Yes Abdominal panniculus present and Yes obesity Palpation (GI): Soft to palpation, nontender, no guarding, not rigid and No hepatosplenomegaly present Percussion: Yes normal to percussion Auscultation: normal bowel sounds Rectal Exam - Female: deferred Skin General skin exam: no rashes or lesions noted, turgor normal, skin not dry, no jaundice, No spider nevi and no striae Rashes: no rashes Nails: normal Neuro General: oriented to person, oriented to place and oriented to time Cranial nerves: Yes Equal, round and reactive pupils present and Yes Normal hearing present Speech: No Abnormal speech present Extrem General: Yes normal to inspection, No clubbing, No cyanosis and No edema Psych Appearance: grossly normal and well kempt Mental Status: mental status grossly normal Speech and movement: Normal speech and movement present Affect: normal affect Attitude: cooperative Thought process: Normal thought process present and not confabulating Thought content: Normal thought content present Insight: Fair insight present (Psych) Judgement: Fair judgement present (Psych) Assessment & Plan Assessment & Plan (1) Epigastric pain: Code(s): R10.13 - Epigastric pain Plan: She found that the urgency with her bowels is driven by high fat foods like butter and [place]. She ran out of her famotidine and at that time had GERD, but this was because she lost her job and did not have insurance. She is hoping to retire in April. Her Julius is also my patient and was supposed to go for EGD/colonosc opy, but his HR was high and he was found to be in afib - he has had 4 cardioversions and he has not converted to NSR. He is on blood thinners, and begin ?all of this is quite a navarrete for me.? Because of all these troubles and the insurance sure fall she is willing to continue on her famotidine and we will discuss again if she needs an EGD in 6 months. (2) Irritable bowel syndrome with both constipation and diarrhea: Code(s): K58.2 - Mixed irritable bowel syndrome Medications: Refilled famotidine (Pepcid) 40 mg PO BEDTIME 90 tabs 3RF 30 days R10.13 - Epigastric pain Coding Level of Care Code Est Pt Level 3 (24249) Diagnoses Epigastric pain R10.13 Irritable bowel syndrome with both constipation and diarrhea K58.2
[2023-01-21 14:52] VITALS: BP 82/55; PULSE 94; BMI 31.0
[2023-01-21 14:56] VITALS: BP 162/66
== END 2023-01-21 15:34 | disposition home or self-care (01) ==
PROVIDERS: PCP Internal Medicine; Visit Provider Nurse Practitioner
DX: R10.13 Epigastric pain (principal); K58.2 Mixed irritable bowel syndrome
CPT/HCPCS: 99213

== ENCOUNTER → 2023-01-21 14:27 | Outpatient (BNVA) | payer OTHER, SELFPAY | PROVIDERS: PCP Internal Medicine; Visit Provider Nurse Practitioner | DX: R10.13 Epigastric pain (principal); K58.2 Mixed irritable bowel syndrome | CPT/HCPCS: 99212 ==

== ENCOUNTER 2023-04-14 08:27 | Outpatient (REF) | payer OTHER, SELFPAY ==
[2023-04-14 11:18] LABS: MANUAL DIFF FLAG NO
[2023-04-14 11:57] LABS: Basophils Absolute Auto 0.1 X10*3/uL (0.0-0.2); Basophils Percent Auto 0.6 % (0-2); Eosinophils Absolute Auto 0.4 X10*3/uL (0.0-0.4); Eosinophils Percent Auto 3.1 % (0-4); Hematocrit 44.2 % (37.0-47.0); Imm Gran Abs Auto 0.04 X10*3/uL (0.00-0.03); Imm Gran Pct Auto 0.3 % (0.0-0.4); Lymphocytes Absolute Auto 3.3 X10*3/uL (1.2-4.9); Mean Corpuscular HGB Conc 31.7 g/dl (31.0-35.0); Mean Corpuscular Hemoglobin 30.4 pg (27.0-33.0); Mean Corpuscular Volume 95.9 fL (80.0-98.0); Mean Platelet Volume 12.5 fL (9.4-12.3); Monocytes Absolute Auto 0.9 X10*3/uL (0.1-1.2); Monocytes Percent Auto 8.2 % (2-11); Neutrophils Absolute Auto 6.8 x10*3/uL (2.0-8.3); Neutrophils Percent Auto 58.8 % (45-73); Platelet Count 277 X10*3/uL (160-400); Red Blood Count 4.61 X10*6/uL (4.20-5.50); Red Cell Distribution Width 13.5 % (11.0-16.0); White Blood Count 11.5 X10*3/uL (4.8-10.8)
[2023-04-14 12:00] LABS: Estimated Average Glucose 134 mg/dL; Hemoglobin A1c % 6.3 % (<6.0)
[2023-04-14 12:35] LABS: Alanine Aminotransferase 19 U/L (0-31); Albumin Level 4.3 g/dL (3.5-5.0); Alkaline Phosphatase 76 U/L (39-117); Anion Gap 15 (12-20); Aspartate Amino Transferase 21 U/L (5-31); Bilirubin Total 0.3 mg/dL (0.0-1.0); Blood Urea Nitrogen 10 mg/dL (9-16); Calcium 10.1 mg/dL (8.4-10.2); Carbon Dioxide 27 mmol/L (22-29); Chloride 103 mmol/L (96-108); Cholesterol 136 mg/dL (<200); Estimated Glomerular Filt Rate > 60; Glucose Fasting 134 mg/dL (60-99); HDL Cholesterol 45 mg/dL (>40); LDL Cholesterol Calculated 69 mg/dL (<100); Potassium 4.4 mmol/L (3.3-5.1); Sodium 141 mmol/L (135-145); TSH reflex Free T4 0.89 uIU/mL (0.32-4.0); Total Protein 7.6 g/dL (6.5-8.0); Triglycerides 113 mg/dL (<150)
[2023-04-14 12:55] LABS: Microalbum/Creatinine Ratio Ur 25.3 ug/mg cr (<30)
== END 2023-04-14 08:28 | disposition home or self-care (01) ==
LOC: HO.HMGCLDS 08:27
PROVIDERS: Absent Provider Physician Assistant; PCP Internal Medicine; Visit Provider Internal Medicine
DX: I10 Essential (primary) hypertension (principal); I48.91 Unspecified atrial fibrillation; E11.9 Type 2 diabetes mellitus without complications; E78.5 Hyperlipidemia, unspecified; I48.0 Paroxysmal atrial fibrillation; I65.23 Occlusion and stenosis of bilateral carotid arteries; I77.1 Stricture of artery
CPT/HCPCS: 36415; 80053; 80061; 82043; 82570; 83036; 84443; 85025

== ENCOUNTER 2023-04-15 12:39 | Outpatient (AMB) | payer OTHER, SELFPAY ==
--- NOTE | 2023-04-15 12:52 | A.OFFPC_ITS ---
Vital Signs 04/15/23 12:54 Height 5 ft 4 in Weight 181 lb BMI 31.1 BP 138/56 L Blood Pressure Location Rt brachial Position Sitting Pulse 86 Pulse Source Pulse Oximeter Pulse Oximetry (%) 92 Oxygen Delivery Method Room Air Intake Visit Reasons: Follow up on diabetes Intake Note: Pt is here today for a follow up visit on DM. Allergies No Known Allergies Allergy (Verified 04/15/23 12:55) Medication List - Last Reconciled 04/15/23 by Dinora Monique MD albuterol sulfate 90 mcg/actuation 2 puffs inhalation QID PRN aspirin 81 mg PO DAILY atorvastatin 80 mg PO BEDTIME blood sugar diagnostic As directed CPAP (CPAP Machine/Device) As directed diltiazem HCl ER 240 mg PO DAILY famotidine (Pepcid) 40 mg PO BEDTIME 30 days fluticasone furoate-vilanterol 100-25 mcg/dose (Breo Ellipta) 1 inh inhalation DAILY glipizide ER 5 mg PO BID lancets As directed lisinopril 20 mg PO BID metformin 1,000 mg PO BID multivitamin 1 tab PO DAILY rivaroxaban (Xarelto) 20 mg PO DAILY Tobacco use date assessed: 04/15/23 Dental Screening Dental Screen Date: 04/15/23 Did you have a dental visit in the last 12 months?: Yes Did you have a dental problem in the last 6 months where you did not have access to dental care?: No Was dental information given to patient?: Patient has dentist HPI Follow up on diabetes HPI Details Patient presents for the follow-up of type 2 diabetes hypertension hyperlipidemia. Patient is not compliant taking her medications regularly. She had a CT angiogram of the neck consistent with left proximal subclavian artery occlusion with distal reconstitution, severe left common carotid artery stenosis. Patient has an appointment with vascular surgeon next week. She was found to have a 6 mm RUL lung nodule and thyroid nodules. [facility] Medical History (Updated 04/15/23 @ 13:57 by Dinora Monique MD) GERD (gastroesophageal reflux disease) Abdominal pain LORETTA (obstructive sleep apnea) Normal colonoscopy Mammogram normal Normal Pap smear Smoker COPD (chronic obstructive pulmonary disease) Hyperlipidemia HTN (hypertension) A-fib DM type 2 (diabetes mellitus, type 2) Ectopic Surgical History History of cardiac radiofrequency ablation (RFA) H/O unilateral salpingectomy Hx of removal of ovary History of ankle surgery Family History (Updated 04/15/23 @ 12:59 by Tiffanie Arnold Dwayne) Father Hypertension Diabetes Mother Hypertension Diabetes Heart attack History of open heart surgery Breast cancer Social History Household 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:: , 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, 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 80244 - PHQ-9 Billing: Patient declined-do not bill Source: Developed by Drs. Marcio Zamorano, Hollie Pinon, Louis Renae and colleagues, with an educational darvin from [employer] [facility]. Thrive Questionnaire Date Thrive assessed: 04/15/23 I am a: Patient What is your living situation today?: I choose not to answer this question Within the past 12 months, did the food you bought not last and you didn't have the money to get more?: I choose not to answer this question Within the past 12 months, did you worry whether your food would run out before you got money to buy more?: I choose not to answer this question Do you have trouble paying for medicines?: I choose not to answer this question Do you have trouble getting transportation to medical appointments?: I choose not to answer this question Do you have trouble paying your heating and electricity bill?: I choose not to answer this question Do you have trouble taking care of your child, family member or friend?: I choose not to answer this question Do you have trouble with day-to-day activities such as bathing, preparing meals, shopping, managing finances, etc.?: I choose not to answer this question Are you currently unemployed and looking for a job?: I choose not to answer this question Are you interested in more education?: I choose not to answer this question Please select the resources that you would like help with: None AUDIT C Alcohol Use Questionnaire (AUDIT-C) 1. How often do you have a drink containing alcohol?: Monthly or less 2. How many drinks containing alcohol do you have on a typical day when you are drinking?: 1 or 2 3. How often do you have six or more drinks on one occasion?: Never Total Score: 1 LORNA-7 AMB Questionnaire LORNA-7 Date LORNA - 7 assessed: 04/15/23 Source: Developed by Drs. Marcio Zamorano, Hollie Pinon, Louis Renae and colleagues, with an educational darvin from [facility] [facility]. LORNA-7 Assessment Billing LORNA-7 Assessment Tool: pt declined-do not bill Review of Systems Const All systems reviewed & are unremarkable except as noted in HPI and below Reports no additional complaints Eyes Reports no additional complaints ENT Reports no additional complaints Card Reports no additional complaints Resp Reports no additional complaints GI Reports no additional complaints Reports no additional complaints Physical exam (Primary Care) Vital Signs: Last Vital Signs Pulse 86 04/15/23 12:54 BP 138/56 L 04/15/23 12:54 Pulse Ox 92 04/15/23 12:54 Oxygen Delivery Method Room Air 04/15/23 12:54 BMI result Body Mass Index 31.1 Tobacco/Smoking Status: Tobacco use Status Tobacco use date assessed 04/15/23 04/15/23 12:59 Patient Tobacco Use Status Current everyday Tobacco 04/15/23 12:54 Tobacco use type Cigarette 04/15/23 12:54 e-Cigarette/Vaping Use Never Used 04/15/23 12:54 Thrive Assessment: Date of Thrive Assessment Date Thrive assessed 04/15/23 04/15/23 13:01 Const General: no acute distress HENMT Head: Yes normal to inspection Face and sinus: Yes normal facial exam Throat: Yes posterior oropharynx normal Eyes General: appearance normal, both eyes and all related structures Neck Neck: Yes supple Resp Effort & Inspection: normal respiratory effort Auscultation: clear to auscultation bilaterally Cardio Rhythm: regular rhythm Heart sounds: S1 normal heart sound present and S2 normal heart sound present GI Inspection: Yes normal to inspection Palpation (GI): Soft to palpation Percussion: Yes normal to percussion Auscultation: normal bowel sounds Assessment and Plan Assessment & Plan (1) Lung nodule: Comment: 6 mm RUL on neck CT angiogram 02/02, obtain chest CT Code(s): R91.1 - Solitary pulmonary nodule (2) Thyroid nodule: Code(s): E04.1 - Nontoxic single thyroid nodule Plan: Obtain thyroid ultrasound (3) Carotid artery disease: Comment: L common severe stenosis, L internal 50% stenosis, R internal <50%, neck CT angiogram 02/02, referred to vascular surg Code(s): I77.9 - Disorder of arteries and arterioles, unspecified Plan: Follow-up with vascular surgery (4) Left subclavian artery occlusion: Comment: segmental, proximal, with distal flow reconstitution 02/02, referred to vascular surg 03/05 Code(s): I70.8 - Atherosclerosis of other arteries Plan: Follow-up with vascular surgery (5) HTN (hypertension): Code(s): I10 - Essential (primary) hypertension Plan: Continue current medications (6) Hyperlipidemia: Code(s): E78.5 - Hyperlipidemia, unspecified Plan: Continue statin (7) DM type 2 (diabetes mellitus, type 2): Code(s): E11.9 - Type 2 diabetes mellitus without complications Plan: A1c is 6.4, ADA diet regular physical activity discussed with the patient she will check the prize of [place] with her insurance. Medication compliance discussed with the patient. Return in 4 months with a fasting labs before (8) A-fib: Comment: [facility] Dr. Frost , Q 6 months Code(s): I48.91 - Unspecified atrial fibrillation Plan: On Xarelto and diltiazem, follow-up with Cardiology (9) Smoker: Comment: 07/15 ppd Code(s): F17.200 - Nicotine dependence, unspecified, uncomplicated Plan: Tobacco quitting discussed with the patient Orders: Orders US thyroid Today E04.1 - Nontoxic single thyroid nodule Lipid Panel 4 Months E11.9 - Type 2 diabetes mellitus without complications, E78.5 - Hyperlipidemia, unspecified, I10 - Essential (primary) hypertension, I48.91 - Unspecified atrial fibrillation Microalbumin, Random (w Creat) 4 Months E11.9 - Type 2 diabetes mellitus without complications, E78.5 - Hyperlipidemia, unspecified, I10 - Essential (primary) hypertension, I48.91 - Unspecified atrial fibrillation CT chest wo con - High Res Today R91.1 - Solitary pulmonary nodule Comprehensive [place]. Panel Fast 4 Months E11.9 - Type 2 diabetes mellitus without complications, E78.5 - Hyperlipidemia, unspecified, I10 - Essential (primary) hypertension, I48.91 - Unspecified atrial fibrillation Hemoglobin A1c 4 Months E11.9 - Type 2 diabetes mellitus without complications, E78.5 - Hyperlipidemia, unspecified, I10 - Essential (primary) hypertension, I48.91 - Unspecified atrial fibrillation Medications: Changed From atorvastatin 40 mg PO BEDTIME 90 tabs 3RF E78.5 - Hyperlipidemia, unspecified To atorvastatin 80 mg PO BEDTIME E78.5 - Hyperlipidemia, unspecified Coding Level of Care Code Est Pt Level 4 (68180) Diagnoses Lung nodule R91.1 Thyroid nodule E04.1 Carotid artery disease I77.9 Left subclavian artery occlusion I70.8 HTN (hypertension) I10 Hyperlipidemia E78.5 DM type 2 (diabetes mellitus, type 2) E11.9 A-fib I48.91 Smoker F17.200
[2023-04-15 12:54] VITALS: BP 138/56; PULSE 86; O2SAT 92; BMI 31.1
== END 2023-04-15 13:59 | disposition home or self-care (01) ==
PROVIDERS: PCP Internal Medicine; Visit Provider Internal Medicine
DX: R91.1 Solitary pulmonary nodule (principal); I77.9 Disorder of arteries and arterioles, unspecified; E11.9 Type 2 diabetes mellitus without complications; I48.91 Unspecified atrial fibrillation; E04.1 Nontoxic single thyroid nodule; I70.8 Atherosclerosis of other arteries; I10 Essential (primary) hypertension; E78.5 Hyperlipidemia, unspecified; F17.210 Nicotine dependence, cigarettes, uncomplicated
CPT/HCPCS: 99214

== ENCOUNTER 2023-07-22 09:25 | Outpatient (AMB) | payer OTHER, SELFPAY ==
--- NOTE | 2023-07-22 09:32 | MHC.OFFVIS ---
Intake Vital Signs 07/22/23 09:33 Height 5 ft 4 in Weight 175 lb 7.807 oz BMI 30.1 BP 119/56 L Blood Pressure Location Rt brachial Position Sitting Pulse 75 Intake Visit Reasons: 6 mnth follow up Intake Note: Phyllis presents in the office as a 6 month follow up. CC: She reports a little of constipation. Denies other GI symptoms today. 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 She ran out of her famotidine and at that time had GERD, but this was because she lost her job and did not have insurance. She is hoping to retire in April. Her Julius is also my patient and was supposed to go for EGD/colonoscopy, but his HR was high and he was found to be in afib - he has had 4 cardioversions and he has not converted to NSR. He is on blood thinners, and begin ?all of this is quite a navarrete for me.? Because of all these troubles and the insurance sure fall she is willing to continue on her famotidine and we will discuss again if she needs an EGD in 6 months. (2) Irritable bowel syndrome with both constipation and diarrhea: Code(s): K58.2 - Mixed irritable bowel syndrome Medications: Refilled famotidine (Pepcid ) 40 mg PO BEDTIME 9 0 tabs 3RF 30 days R10.13 - Epigastri c pain EGD Procedure was canceled due to subclavian stenosis and the patient needs to follow up with Cardiology Biopsy Laboratory Tests 04/14/23 08:36 WBC 11.5 H Hgb 14.0 Hct 44.2 Plt Count 277 Estimated GFR > 60 Hemoglobin A1c % 6.3 H Total Bilirubin 0.3 AST 21 ALT 19 Alkaline Phosphata se 76 TSH 0.89 TODAY'S VISIT Computed Tomography Technologist [facility] cardiology re: stenosis. She says her res counselor did not feel the procedures should be a problem, we will have to contact them. She is doing well with her famotidine. She has been having some increasing constipation recently, she is not sure why there is been no medicine changes, and she purchased some cuom-spz-qfjefwf stool softeners to try to address this. If this continues I will be more than happy to help her manage this.. She also brings up the fact that she has been having vaginal itching and discharge without any risk of STD which likely is a vaginal yeast infection. We discussed the use of hkic-noz-ebeqrad Monistat either 3 day suppositories or 7 day creams and if this is not resolved then she can feel free to contact me about this.. Her needs an appt to see me, he was struggling with afib but has now been cardioverted and is ready for colonoscopy. I will have him make a follow-up appointment to see me today we will go from there. There are no prior problems with anesthesia or sedation. She has obstructive sleep apnea, AFib asthma/COPD and subclavian artery the left and we are contacting her res counselor for clearance. There are no infectious problems. There is no known family history of colon cancer or polyps and her last colonoscopy was at age 51 and was negative. Return office visit in 6 months for her chronic GERD. Of course I will see her after the colonoscopy once we obtain clearance. [facility] Medical History GERD (gastroesophageal reflux disease) Abdominal pain LORETTA (obstructive sleep apnea) Normal colonoscopy Mammogram normal Normal Pap smear Smoker COPD (chronic obstructive pulmonary disease) Hyperlipidemia HTN (hypertension) A-fib DM type 2 (diabetes mellitus, type 2) Ectopic Surgical History History of cardiac radiofrequency ablation (RFA) H/O unilateral salpingectomy Hx of removal of ovary History of ankle surgery Family History Father Hypertension Diabetes Mother Hypertension Diabetes Heart attack History of open heart surgery Breast cancer Social History Household 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:: , 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, 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, 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 intake: current Alcohol intake frequency: holidays/special occasions only Patient Tobacco Use Status: Current everyday Tobacco user Tobacco use type: Cigarette Cigarette Packs Per Day: 0.25 Cigarettes Per Day: 5.0 Years Smoked: 30 e-Cigarette/Vaping Use: Never Used service: No Current occupational status: employed Current occupation: [employer] t[employer] Current occupational exposures/hazards: No Cognitive needs: No Hearing needs: No Vision needs: Yes Review of Systems Const Denies fatigue, Denies fever(s), Denies night sweats, Denies poor appetite and Denies weight loss ENT Reports Normal hearing present, Denies dental pain, Denies dysphagia, Denies hearing loss, Denies mouth pain, Denies odynophagia, Denies throat swelling, Denies tongue swelling and Reports other (Dentition adequate) Card Reports no additional complaints Resp Reports no additional complaints GI Denies abdominal pain, Denies melena, Denies bloating, Denies hematochezia, Reports constipation, Denies GI cramping, Denies dysphagia, Denies excessive flatus, Denies early satiety, Reports heartburn, Denies diarrhea, Denies nausea, Denies odynophagia, Denies vomiting and Denies hematemesis Reports vaginal discharge and Reports vaginal pruritus Skin/Breast Denies pruritus, Denies lesions, Denies rash and Denies jaundice Neuro Reports Normal hearing present and Denies Abnormal speech present Endo Denies fatigue Aller/Immun Denies throat swelling and Denies tongue swelling Physical Exam Vital Signs: Last Vital Signs Pulse 75 07/22/23 09:33 BP 119/56 L 07/22/23 09:33 BMI result Body Mass Index 30.1 Const General: cooperative, no acute distress, well developed and well groomed Nutritional Appearance: well nourished and overweight Orientation/consciousness: oriented to person, oriented to place and oriented to time Limitations: No language barrier HEENT Head: Yes normocephalic and Yes atraumatic Eyes General: appearance normal, both eyes and all related structures Pupils: Equal, round and reactive pupils present Neck Neck: Yes normal visual inspection and Yes no lymphadenopathy Thyroid: Thyroid normal Resp Effort & Inspection: normal respiratory effort and able to speak in complete sentences Auscultation: clear to auscultation bilaterally Cardio Rate: regular rate Rhythm: regular rhythm Heart sounds: Normal, physiologic split S2 sound present Peripheral pulses: radial pulses present and posterior tibial pulses present GI Inspection: No distended and No Abdominal panniculus present Palpation (GI): Soft to palpation, nontender, no guarding, not rigid and No hepatosplenomegaly present Percussion: Yes normal to percussion Auscultation: normal bowel sounds Rectal Exam - Female: deferred Skin General skin exam: no rashes or lesions noted, turgor normal, skin not dry, no jaundice, No spider nevi and no striae Rashes: no rashes Nails: normal Neuro General: oriented to person, oriented to place and oriented to time Cranial nerves: Yes Equal, round and reactive pupils present and Yes Normal hearing present Speech: No Abnormal speech present Extrem General: Yes normal to inspection, No clubbing, No cyanosis and No edema Psych Appearance: grossly normal and well kempt Mental Status: mental status grossly normal Speech and movement: Normal speech and movement present Affect: normal affect Attitude: cooperative Thought process: Normal thought process present and not confabulating Thought content: Normal thought content present Insight: Limited insight present (Psych) Judgement: Limited judgement present (Psych) Assessment & Plan Assessment & Plan (1) Epigastric pain: Code(s): R10.13 - Epigastric pain (2) Irritable bowel syndrome with both constipation and diarrhea: Code(s): K58.2 - Mixed irritable bowel syndrome (3) Chronic anticoagulation: Code(s): Z79.01 - technician terminal and repeater (current) use of anticoagulants (4) Left subclavian artery occlusion: Comment: segmental, proximal, with distal flow reconstitution 02/02, referred to vascular surg 03/05 Code(s): I70.8 - Atherosclerosis of other arteries (5) LORETTA (obstructive sleep apnea): Comment: CPAP USE Code(s): G47.33 - Obstructive sleep apnea (adult) (pediatric) (6) Smoker: Comment: 07/15 ppd Code(s): F17.200 - Nicotine dependence, unspecified, uncomplicated (7) COPD (chronic obstructive pulmonary disease): Code(s): J44.9 - Chronic obstructive pulmonary disease, unspecified (8) A-fib: Comment: [facility] Dr. Frost , Q 6 months Code(s): I48.91 - Unspecified atrial fibrillation (9) Pre-op examination: Code(s): Z01.818 - Encounter for other preprocedural examination (10) Constipation: Code(s): K59.00 - Constipation, unspecified (11) Vaginal yeast infection: Code(s): B37.31 - Acute candidiasis of vulva and vagina Plan Computed Tomography Technologist [facility] cardiology re: stenosis. She says her res counselor did not feel the procedures should be a problem, we will have to contact them. She is doing well with her famotidine. She has been having some increasing constipation recently, she is not sure why there is been no medicine changes, and she purchased some wzdg-yjh-tevtpak stool softeners to try to address this. If this continues I will be more than happy to help her manage this.. She also brings up the fact that she has been having vaginal itching and discharge without any risk of STD which likely is a vaginal yeast infection. We discussed the use of woui-jlr-llgycga Monistat either 3 day suppositories or 7 day creams and if this is not resolved then she can feel free to contact me about this.. Her needs an appt to see me, he was struggling with afib but has now been cardioverted and is ready for colonoscopy. I will have him make a follow-up appointment to see me today we will go from there. There are no prior problems with anesthesia or sedation. She has obstructive sleep apnea, AFib asthma/COPD and subclavian artery the left and we are contacting her res counselor for clearance. There are no infectious problems. There is no known family history of colon cancer or polyps and her last colonoscopy was at age 51 and was negative. Return office visit in 6 months for her chronic GERD. Of course I will see her after the colonoscopy once we obtain clearance. Orders: Orders EGD/Brea Combo - GI Use Only Today R10.13 - Epigastric pain Medications: Refilled famotidine (Pepcid) 40 mg PO BEDTIME 30 days 90 tabs 3RF R10.13 - Epigastric pain Coding Level of Care Code Est Pt Level 4 (65248) Diagnoses Epigastric pain R10.13 Irritable bowel syndrome with both constipation and diarrhea K58.2 Chronic anticoagulation Z79.01 Left subclavian artery occlusion I70.8 LORETTA (obstructive sleep apnea) G47.33 Smoker F17.200 COPD (chronic obstructive pulmonary disease) J44.9 A-fib I48.91 Pre-op examination Z01.818 Constipation K59.00 Vaginal yeast infection B37.31
[2023-07-22 09:33] VITALS: BP 119/56; PULSE 75; BMI 30.1
== END 2023-07-22 09:59 | disposition home or self-care (01) ==
PROVIDERS: PCP Internal Medicine; Visit Provider Nurse Practitioner
DX: R10.13 Epigastric pain (principal); K58.2 Mixed irritable bowel syndrome; Z79.01 Long term (current) use of anticoagulants; I70.8 Atherosclerosis of other arteries; G47.33 Obstructive sleep apnea (adult) (pediatric); F17.200 Nicotine dependence, unspecified, uncomplicated; J44.9 Chronic obstructive pulmonary disease, unspecified; I48.91 Unspecified atrial fibrillation; Z01.818 Encounter for other preprocedural examination; K59.00 Constipation, unspecified; B37.31 Acute candidiasis of vulva and vagina
CPT/HCPCS: 99214

== ENCOUNTER → 2023-07-22 09:25 | Outpatient (BNVA) | payer OTHER, SELFPAY | PROVIDERS: PCP Internal Medicine; Visit Provider Nurse Practitioner | DX: R10.13 Epigastric pain (principal); K58.2 Mixed irritable bowel syndrome; I70.8 Atherosclerosis of other arteries; G47.33 Obstructive sleep apnea (adult) (pediatric); J44.9 Chronic obstructive pulmonary disease, unspecified; F17.210 Nicotine dependence, cigarettes, uncomplicated; Z79.01 Long term (current) use of anticoagulants | CPT/HCPCS: 99212 ==

== ENCOUNTER 2023-08-08 08:45 | Outpatient (REF) | payer OTHER, SELFPAY | END 2023-08-08 08:46 | disposition home or self-care (01) | LOC: HO.MAMMO 08:45 | PROVIDERS: PCP Internal Medicine; Visit Provider Internal Medicine | DX: Z12.31 Encounter for screening mammogram for malignant neoplasm of breast (principal) | CPT/HCPCS: 77063; 77067 ==

== ENCOUNTER → 2023-08-08 08:45 | Outpatient (BNV) | payer OTHER, SELFPAY | PROVIDERS: PCP Internal Medicine; Visit Provider Radiology Diagnostic Radiology | DX: Z12.31 Encounter for screening mammogram for malignant neoplasm of breast (principal) | CPT/HCPCS: 77063; 77067 ==

== ENCOUNTER 2023-08-15 09:49 | Outpatient (REF) | payer OTHER, SELFPAY ==
--- NOTE | ~2023-08-15 | US_ITS ---
EXAMINATION: US THYROID CLINICAL INFORMATION: Nontoxic single thyroid nodule. COMPARISON: None available. TECHNIQUE: Linear transducer grayscale and color Doppler examination with attention to the region of the thyroid. FINDINGS: SIZE: Measurements of the thyroid lobes and nodules are given in sagittal, anteroposterior and transverse dimensions respectively. Right Thyroid Lobe: 5.1 x 1.9 x 1.8 cm, volume 9.1 mL. Parenchyma: The gland echotexture is homogeneous. Thyroid vascularity is normal. Left Thyroid Lobe: 4.2 x 1.5 x 1.7 cm, volume 5.6 mL. Parenchyma: The gland echotexture is homogeneous. Thyroid vascularity is normal. Isthmus: 0.2 cm in maximum AP dimension. Estimated total number of nodules greater than or equal to 1 cm: 2. Yard Stocker nodules are described as follows: 1. Location: Right superior. Size: 1.0 x 0.6 x 0.9 cm, volume 0.32 mL. Nodule characteristics: Composition: Spongiform (0). ACR TI-RADS total points: 0 ACR TI-RADS category: 1 2. Location: Right mid. Size: 1.0 x 0.9 x 1.0 cm, volume 0.46 mL. Nodule characteristics: Composition: Mixed cystic and solid (1). Echogenicity: Isoechoic (1). Shape: Not taller than wide (0). Margins: Smooth (0). Echogenic Foci: Macrocalcifications (1). ACR TI-RADS total points: 3 ACR TI-RADS category: 3 3. Location: Right inferior. Size: 0.6 x 0.4 x 0.6 cm, volume 0.07 mL. Nodule characteristics: Composition: Mixed cystic and solid (1). Echogenicity: Hypoechoic (2). Shape: Not taller than wide (0). Margins: Smooth (0). Echogenic Foci: None (0). ACR TI-RADS total points: 3 ACR TI-RADS category: 3 4. Location: Left superior. Size: 0.6 x 0.4 x 0.5 cm, volume 0.07 mL. Nodule characteristics: Composition: Cystic(0). ACR TI-RADS total points: 0 ACR TI-RADS category: 1 NODES: No lymphadenopathy is seen in the tissue surrounding the thyroid gland. US/US thyroid IMPRESSION: Normal-sized thyroid gland with homogeneous echotexture and normal vascularity. Small nodules as above, highest TR score nodule is TR 3 measuring 1.0 cm in the right mid thyroid. No follow-up recommended as per ACR TI-RADS. ACR TI-RADS RECOMMENDATION REFERENCE: Ultrasound-guided fine-needle aspiration, followup ultrasound, no further follow up. * TR1 (0 point) and TR2 (2 points): No FNA or follow up. * TR3 (3 points): FNA if more than or equal to 2.5 cm in maximum dimension, followup ultrasound in 1, 3 and 5 years if 1.5 to 2.4 cm in maximum dimension. * TR4 (4-6 points): FNA if more than or equal to 1.5 cm in maximum dimension, followup ultrasound in 1, 2, 3 and 5 years if 1 to 1.4 cm in maximum dimension. * TR5 (more than or equal to 7 points): FNA if more than or equal to 1 cm in maximum dimension, followup ultrasound every year for 5 years if 0.5 to 0.9 cm in maximum dimension. * TR3, TR4 or TR5 nodules that are below the size threshold for followup receive no follow up.
== END 2023-08-15 09:50 | disposition home or self-care (01) ==
LOC: HO.HMGCX 09:49
PROVIDERS: PCP Internal Medicine; Visit Provider Internal Medicine
DX: E04.1 Nontoxic single thyroid nodule (principal)
CPT/HCPCS: 76536

== ENCOUNTER 2023-09-03 08:21 | Outpatient (REF) | payer OTHER, SELFPAY ==
[2023-09-03 11:36] LABS: Estimated Average Glucose 128 mg/dL; Hemoglobin A1C 148.9803 umol/L; Hemoglobin A1c % 6.1 % (<6.0)
[2023-09-03 11:50] LABS: Creatinine Urine 90.98 mg/dL; Microalbum/Creatinine Ratio Ur 30.7 ug/mg cr (<30)
[2023-09-03 12:10] LABS: Alanine Aminotransferase 20 U/L (0-31); Albumin Level 4.1 g/dL (3.5-5.0); Alkaline Phosphatase 71 U/L (39-117); Anion Gap 12 (12-20); Aspartate Amino Transferase 20 U/L (5-31); Bilirubin Total 0.3 mg/dL (0.0-1.0); Blood Urea Nitrogen 16 mg/dL (9-16); Calcium 9.4 mg/dL (8.4-10.2); Carbon Dioxide 28 mmol/L (22-29); Chloride 107 mmol/L (96-108); Cholesterol 132 mg/dL (<200); Estimated Glomerular Filt Rate > 60; Glucose Fasting 115 mg/dL (60-99); HDL Cholesterol 35 mg/dL (>40); LDL Cholesterol Calculated 60 mg/dL (<100); Potassium 4.4 mmol/L (3.3-5.1); Sodium 143 mmol/L (135-145); Total Protein 7.3 g/dL (6.5-8.0); Triglycerides 185 mg/dL (<150)
[2023-09-03 12:11] LABS: Magnesium 2.4 mg/dL (1.6-2.6)
== END 2023-09-03 08:22 | disposition home or self-care (01) ==
LOC: HO.HMGCLDS 08:21
PROVIDERS: PCP Internal Medicine; Referring Provider Internal Medicine; Visit Provider Internal Medicine
DX: E78.5 Hyperlipidemia, unspecified (principal); I10 Essential (primary) hypertension; I48.91 Unspecified atrial fibrillation; E11.9 Type 2 diabetes mellitus without complications; E78.00 Pure hypercholesterolemia, unspecified
CPT/HCPCS: 36415; 80053; 80061; 82043; 82570; 83036; 83735

== ENCOUNTER 2023-09-04 08:21 | Outpatient (AMB) | payer OTHER, SELFPAY ==
[2023-09-04 08:22] VITALS: BP 124/74; PULSE 79; O2SAT 98; BMI 30.6
--- NOTE | 2023-09-04 08:22 | A.OFFPC_ITS ---
Vital Signs 09/04/23 08:22 Height 5 ft 4 in Weight 178 lb BMI 30.6 BP 124/74 Blood Pressure Location Rt brachial Position Sitting Pulse 79 Pulse Source Pulse Oximeter Pulse Oximetry (%) 98 Oxygen Delivery Method Room Air Intake Visit Reasons: Annual PE Intake Note: Pt is here today for PE. Allergies No Known Allergies Allergy (Verified 09/04/23 08:31) Medication List - Last Reconciled 09/04/23 by Dinora Monique MD albuterol sulfate 90 mcg/actuation 2 puffs inhalation QID PRN aspirin 81 mg PO DAILY atorvastatin 80 mg PO BEDTIME bisacodyl (Dulcolax (bisacodyl)) 10 mg (2 x 5 mg) PO BEDTIME 2 days blood sugar diagnostic As directed CPAP (CPAP Machine/Device) As directed diltiazem HCl ER 240 mg PO DAILY empagliflozin (Jardiance) 10 mg PO DAILY famotidine (Pepcid) 40 mg PO BEDTIME 30 days fluticasone furoate-vilanterol 100-25 mcg/dose (Breo Ellipta) 1 inh PO DAILY lancets As directed lisinopril 20 mg PO BID metformin 1,000 mg PO BID multivitamin 1 tab PO DAILY rivaroxaban (Xarelto) 20 mg PO DAILY Tobacco use date assessed: 09/04/23 Dental Screening Dental Screen Date: 09/04/23 Did you have a dental visit in the last 12 months?: Yes Did you have a dental problem in the last 6 months where you did not have access to dental care?: No Was dental information given to patient?: Patient has dentist HPI Annual PE HPI Details Pt presents for PE. Pt going to [place] next week. [facility] Medical History (Updated 09/04/23 @ 09:07 by Dinora Monique MD) GERD (gastroesophageal reflux disease) Abdominal pain LORETTA (obstructive sleep apnea) Normal colonoscopy Mammogram normal Normal Pap smear Smoker COPD (chronic obstructive pulmonary disease) Hyperlipidemia HTN (hypertension) A-fib DM type 2 (diabetes mellitus, type 2) Ectopic Surgical History History of cardiac radiofrequency ablation (RFA) H/O unilateral salpingectomy Hx of removal of ovary History of ankle surgery Family History Father Hypertension Diabetes Mother Hypertension Diabetes Heart attack History of open heart surgery Breast cancer Social History Household 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:: , 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, 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 1. Little interest or pleasure in doing things: not at all 2. Feeling down, depressed, or hopeless: not at all 3. Trouble falling or staying asleep, or sleeping too much: not at all 4. Feeling tired or having little energy: not at all 5. Poor appetite or overeating: not at all 6. Feeling bad about yourself - or that you are a failure or have let yourself or your family down: not at all 7. Trouble concentrating on things, such as reading the newspaper or watching television: not at all 8. Moving or speaking so slowly that other people could have noticed. Or the opposite - being so fidgety or restless that you have been moving around a lot more than usual: not at all 9. Thoughts that you would be better off or of hurting yourself in some way: not at all Total score: 0 Depression Screening Interpretation: Negative Depression Screening Done: Yes Source: Developed by Drs. Marcio Zamorano, Hollie Pinon, Louis Renae and colleagues, with an educational darvin from [employer]. Thrive Questionnaire Date Thrive assessed: 09/04/23 I am a: Patient What is your living situation today?: I have a steady place to live Within the past 12 months, did the food you bought not last and you didn't have the money to get more?: Never true Within the past 12 months, did you worry whether your food would run out before you got money to buy more?: Never true Do you have trouble paying for medicines?: No Do you have trouble getting transportation to medical appointments?: No Do you have trouble paying your heating and electricity bill?: No Do you have trouble taking care of your child, family member or friend?: No Do you have trouble with day-to-day activities such as bathing, preparing meals, shopping, managing finances, etc.?: No Are you currently unemployed and looking for a job?: No Are you interested in more education?: No Please select the resources that you would like help with: None Currently or been in a relationship where the following occur: no concerns reported THRIVE Score: 0 AUDIT C Alcohol Use Questionnaire (AUDIT-C) 1. How often do you have a drink containing alcohol?: Monthly or less 2. How many drinks containing alcohol do you have on a typical day when you are drinking?: 1 or 2 3. How often do you have six or more drinks on one occasion?: Never Total Score: 1 LORNA-7 AMB Questionnaire LORNA-7 Date LORNA - 7 assessed: 09/04/23 Feeling nervous, anxious, or on edge: 0 = Not at all Not being able to stop or control worryin = Not at all Worrying too much about different things: 0 = Not at all Trouble relaxin = Not at all Being so restless that it is hard to sit still: 0 = Not at all Becoming easily annoyed or irritable: 0 = Not at all Feeling afraid as if something awful might happen: 0 = Not at all Total LORNA-7 score (0-4 normal; 5-9 mild; 10-14 moderate; 15-21 severe): 0 Source: Developed by Drs. Marcio Zamorano, Hollie Pinon, Louis Renae and colleagues, with an educational darvin from [employer]. Review of Systems Const All systems reviewed & are unremarkable except as noted in HPI and below Reports no additional complaints Eyes Reports no additional complaints ENT Reports no additional complaints Card Reports no additional complaints Resp Reports no additional complaints GI Reports no additional complaints Reports no additional complaints Musc Reports no additional complaints Physical exam (Primary Care) Vital Signs: Last Vital Signs Pulse 79 09/04/23 08:22 BP 124/74 09/04/23 08:22 Pulse Ox 98 09/04/23 08:22 Oxygen Delivery Method Room Air 09/04/23 08:22 BMI result Body Mass Index 30.6 Tobacco/Smoking Status: Tobacco use Status Tobacco use date assessed 09/04/23 09/04/23 08:35 Patient Tobacco Use Status Current everyday Tobacco 09/04/23 08:22 Tobacco use type Cigarette 09/04/23 08:22 e-Cigarette/Vaping Use Never Used 09/04/23 08:22 PHQ-9: PHQ-9 Score PHQ-9: Total score 0 09/04/23 08:37 Depression Screening Interpretation: Negative Thrive Assessment: Date of Thrive Assessment Date Thrive assessed 09/04/23 09/04/23 08:37 Currently or been in a relationship where the following occur: no concerns reported Const General: no acute distress HENMT Head: Yes normal to inspection General nose exam: Normal external nose present Face and sinus: Yes normal facial exam Mouth: Normal oral and palatal mucosa present Throat: Yes posterior oropharynx normal Eyes General: appearance normal, both eyes and all related structures Neck Neck: Yes no lymphadenopathy and Yes supple Resp Effort & Inspection: normal respiratory effort Auscultation: clear to auscultation bilaterally Cardio Rhythm: regular rhythm Heart sounds: S1 normal heart sound present and S2 normal heart sound present GI Inspection: Yes normal to inspection Palpation (GI): Soft to palpation Percussion: Yes normal to percussion Auscultation: normal bowel sounds Extrem General: Yes no clubbing, cyanosis or edema Assessment and Plan Assessment & Plan (1) DM type 2 (diabetes mellitus, type 2): Code(s): E11.9 - Type 2 diabetes mellitus without complications Plan: A1c is 6.1, patient has been forgetting to take metformin twice a day. ADA diet regular physical activity discussed with the patient. Jardiance will be increased to 25 mg a day and patient will continue metformin 1000 mg daily (2) A-fib: Comment: [place] , status post catheter ablation 2021, f/u Q 6 months, nl Echo Code(s): I48.91 - Unspecified atrial fibrillation Plan: Anticoagulated on Xarelto and rate controlled on diltiazem. Patient follows up with a business analyst manager for breakthrough AFib episodes (3) HTN (hypertension): Code(s): I10 - Essential (primary) hypertension Plan: Continue current medications (4) Hyperlipidemia: Code(s): E78.5 - Hyperlipidemia, unspecified Plan: Continue statin (5) Carotid artery disease: Comment: L common severe stenosis, L internal 50% stenosis, R internal <50%, neck CT a ngiogram 02/02, referred to vascular surg Code(s): I77.9 - Disorder of arteries and arterioles, unspecified Plan: Follow-up with the vascular surgeon at [facility] (6) LORETTA (obstructive sleep apnea): Comment: CPAP USE Code(s): G47.33 - Obstructive sleep apnea (adult) (pediatric) Plan: Continue CPap (7) Normal colonoscopy: Comment: at 51 Plan: Patient will have colonoscopy in November (8) Smoker: Comment: 07/15 ppd Code(s): F17.200 - Nicotine dependence, unspecified, uncomplicated Plan: Tobacco quitting discussed with the pt Orders: Orders Comprehensive [place]. Panel Fast 4 Months E11.9 - Type 2 diabetes mellitus without complications, E78.5 - Hyperlipidemia, unspecified, I10 - Essential (primary) hypertension, I48.91 - Unspecified atrial fibrillation Complete Blood Count Auto Diff 4 Months E11.9 - Type 2 diabetes mellitus without complications, E78.5 - Hyperlipidemia, unspecified, I10 - Essential (primary) hypertension, I48.91 - Unspecified atrial fibrillation Hemoglobin A1c 4 Months E11.9 - Type 2 diabetes mellitus without complications, E78.5 - Hyperlipidemia, unspecified, I10 - Essential (primary) hypertension, I48.91 - Unspecified atrial fibrillation Lipid Panel 4 Months E11.9 - Type 2 diabetes mellitus without complications, E78.5 - Hyperlipidemia, unspecified, I10 - Essential (primary) hypertension, I48.91 - Unspecified atrial fibrillation Microalbumin, Random (w Creat) 4 Months E11.9 - Type 2 diabetes mellitus without complications, E78.5 - Hyperlipidemia, unspecified, I10 - Essential (primary) hypertension, I48.91 - Unspecified atrial fibrillation Medications: New lisinopril 40 mg PO DAILY 90 tabs 3RF empagliflozin (Jardiance) 25 mg PO DAILY 90 tabs 3RF lorazepam 0.5 mg PO DAILY PRN 4 tabs 0RF anxiety Changed From metformin 1,000 mg PO BID 180 tabs 3RF To metformin 1,000 mg PO DAILY 90 tabs 3RF Discontinued lisinopril Discontinued Reason: Doctor's Order 20 mg PO BID 180 tabs 3RF empagliflozin (Jardiance) Discontinued Reason: Doctor's Order 10 mg PO DAILY 90 tabs 1RF Coding Level of Care Code Est Pt Prev Care 40-64y(95827) Diagnoses DM type 2 (diabetes mellitus, type 2) E11.9 A-fib I48.91 HTN (hypertension) I10 Hyperlipidemia E78.5 Carotid artery disease I77.9 LORETTA (obstructive sleep apnea) G47.33 Normal colonoscopy Smoker F17.200
== END 2023-09-04 09:02 | disposition home or self-care (01) ==
PROVIDERS: PCP Internal Medicine; Visit Provider Internal Medicine
DX: Z00.00 Encounter for general adult medical examination without abnormal findings (principal); E11.69 Type 2 diabetes mellitus with other specified complication; I48.91 Unspecified atrial fibrillation; I77.9 Disorder of arteries and arterioles, unspecified; I10 Essential (primary) hypertension; E78.5 Hyperlipidemia, unspecified; G47.33 Obstructive sleep apnea (adult) (pediatric); F17.210 Nicotine dependence, cigarettes, uncomplicated
CPT/HCPCS: 99396

== ENCOUNTER 2023-09-25 08:13 | Outpatient (AMB) | payer OTHER, SELFPAY ==
[2023-09-25 08:48] VITALS: BP 122/60; PULSE 95; TEMP 36.6; O2SAT 98; BMI 29.5
--- NOTE | 2023-09-25 08:48 | AM.OFFWIN_ITS ---
Intake Vital Signs 09/25/23 08:48 Height 5 ft 4 in Weight 172 lb BMI 29.5 BP 122/60 Blood Pressure Location Lt brachial Position Sitting Pulse 95 Pulse Source Pulse Oximeter Temp 97.9 F Temp Source Temporal Artery Scan Pulse Oximetry (%) 98 Oxygen Delivery Method Room Air Intake Visit Reasons: EP ?Respiratory Intake Note: pt is here today for respiratory started 1 week ago Patient Tobacco Use Status: Current everyday Tobacco user Allergies No Known Allergies Allergy (Verified 09/25/23 08:49) Do you need a note to return to daycare/school/sports/work: No HPI HPI Comments History of Present Illness Details 63 y/o female patient who [facility] clinic with c/o cough, SOB, wheezing, chest congestion and fatigue x 5 days. Reports low grade fever at home. H/o COPD. Pt just returned from a [place] Trip. Family at home with similar symptoms. She has been taking OTC cough remedies with minimal relief. [facility] Medical History (Updated 09/04/23 @ 09:07 by Dinora Monique MD) GERD (gastroesophageal reflux disease) Abdominal pain LORETTA (obstructive sleep apnea) Normal colonoscopy Mammogram normal Normal Pap smear Smoker COPD (chronic obstructive pulmonary disease) Hyperlipidemia HTN (hypertension) A-fib DM type 2 (diabetes mellitus, type 2) Ectopic Surgical History History of cardiac radiofrequency ablation (RFA) H/O unilateral salpingectomy Hx of removal of ovary History of ankle surgery Family History Father Hypertension Diabetes Mother Hypertension Diabetes Heart attack History of open heart surgery Breast cancer Social History Household 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:: , 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, 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, 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 intake: current Alcohol intake frequency: holidays/special occasions only Patient Tobacco Use Status: Current everyday Tobacco user Tobacco use type: Cigarette Cigarette Packs Per Day: 0.25 Cigarettes Per Day: 5.0 Years Smoked: 30 e-Cigarette/Vaping Use: Never Used service: No Current occupational status: employed Current occupation: [employer] Current occupational exposures/hazards: No Cognitive needs: No Hearing needs: No Vision needs: Yes Review of Systems Const All systems reviewed & are unremarkable except as noted in HPI and below Physical Exam Vital Signs: Last Vital Signs Temp 97.9 F 09/25/23 08:48 Pulse 95 09/25/23 08:48 BP 122/60 09/25/23 08:48 Pulse Ox 98 09/25/23 08:48 Oxygen Delivery Method Room Air 09/25/23 08:48 BMI result Body Mass Index 29.5 Const General: comfortable and no acute distress Nutritional Appearance: overweight Orientation/consciousness: patient oriented x3 HEENT Head: Yes normocephalic Ears: external ears normal and TM abnormal with fluid behind the TM bilateral General nose exam: Abnormal mucous membranes and turbinates present boggy and erythematous Face and sinus: Yes sinuses nontender Mouth: moist mucous membranes Throat: Yes posterior oropharynx normal Resp Effort & Inspection: normal respiratory effort and able to speak in complete sentences Auscultation: rhonchi upper bilaterally and wheezes scattered wheezes Cardio Rate: regular rate Neuro General: patient oriented x3 Assessment & Plan Assessment & Plan (1) Upper respiratory infection: Code(s): J06.9 - Acute upper respiratory infection, unspecified Qualifiers: URI type: unspecified URI Qualified Code(s): J06.9 - Acute upper respiratory infection, unspecified Plan: - Rest and hydrate with warm fluids - Take medications as prescribed - Acetaminophen for pain relief. (2) Wheezing on auscultation: Code(s): R06.2 - Wheezing Plan: - Rest and hydrate with warm fluids - Take medications as prescribed - Acetaminophen for pain relief. Orders: Orders SARS-CoV2/FLU/RSV Today J06.9 - Acute upper respiratory infection, unspecified, R06.2 - Wheezing Medications: New azithromycin 500 mg PO DAILY 3 tabs 0RF 3 days J06.9 - Acute upper respiratory infection, unspecified, R06.2 - Wheezing ipratropium-albuterol 0.5 mg-3 mg(2.5 mg base)/3 mL 3 mL inhalation Q4-6H PRN 90 mL 0RF wheezing R06.2 - Wheezing prednisone 50 mg PO DAILY 5 tabs 0RF 5 days R06.2 - Wheezing benzonatate 100 mg PO TID 60 caps 0RF J06.9 - Acute upper respiratory infection, unspecified Coding Level of Care Code Est Pt Level 3 (66567) Diagnoses Upper respiratory tract infection, unspecified type J06.9 URI type: unspecified URI Wheezing on auscultation R06.2 Time Spent (min) 15
== END 2023-09-25 09:39 | disposition home or self-care (01) ==
PROVIDERS: PCP Internal Medicine; Visit Provider Nurse Practitioner Family
DX: J06.9 Acute upper respiratory infection, unspecified (principal); R06.2 Wheezing
CPT/HCPCS: 99213

== ENCOUNTER 2023-09-25 09:29 | Outpatient (REF) | payer OTHER, SELFPAY ==
[2023-09-25 14:27] LABS: Influenza A PCR NEGATIVE (Negative); Influenza B PCR NEGATIVE (Negative); Resp Syncy Virus RNA Qual PCR NEGATIVE (Negative); SARS COV2 PCR INHOUSE NEGATIVE (Negative)
== END 2023-09-25 09:30 | disposition home or self-care (01) ==
LOC: HO.LAB 09:29
PROVIDERS: Visit Provider Nurse Practitioner Family
DX: Z11.52 Encounter for screening for COVID-19 (principal); Z20.822 Contact with and (suspected) exposure to COVID-19; J06.9 Acute upper respiratory infection, unspecified; R06.2 Wheezing
CPT/HCPCS: 0241U

== ENCOUNTER 2023-11-18 08:32 | Day surgery (SDC) | payer OTHER, SELFPAY ==
--- NOTE | 2023-11-17 12:11 | P.CONAN_ITS ---
Documented by User: Ruth Ferguson NP 11/17/23 12:18 HPI - Anesthesia Eval Consult details Narrative: 63yo F for Upper Endoscopy and Colonoscopy Xarelto for afib Follows [facility] for subclavian occlusion and carotid stenosis. Last office visit 06/2023 with 1 year f/u, surveillance only Anesthesia Pre-Procedure Meds Is the patient on any of the following meds?: SGLT2 Inhib PMFSH Active Problems Active Problems: All Active Problems Vaginal yeast infection (Acute) Constipation (Acute) Pre-op examination (Acute) Chronic anticoagulation (Acute) Left subclavian artery occlusion (Acute) Carotid artery disease (Acute) Thyroid nodule (Acute) Lung nodule (Acute) Nocturnal hypoxemia (Acute) Epigastric pain (Acute) Irritable bowel syndrome with both constipation and diarrhea (Acute) Abdominal pain (Acute) LORETTA (obstructive sleep apnea) (Acute) Normal colonoscopy (Acute) Mammogram normal (Acute) Normal Pap smear (Acute) Smoker (Acute) COPD (chronic obstructive pulmonary disease) (Acute) Hyperlipidemia (Acute) HTN (hypertension) (Acute) A-fib (Acute) DM type 2 (diabetes mellitus, type 2) (Acute) Past Medical History Medical History GERD (gastroesophageal reflux disease) Abdominal pain LORETTA (obstructive sleep apnea) Normal colonoscopy Mammogram normal Normal Pap smear Smoker COPD (chronic obstructive pulmonary disease) Hyperlipidemia HTN (hypertension) A-fib DM type 2 (diabetes mellitus, type 2) Ectopic Family History Family History Father Hypertension Diabetes Mother Hypertension Diabetes Heart attack History of open heart surgery Breast cancer Surgical History Surgical History H/O colonoscopy History of cardiac radiofrequency ablation (RFA) H/O unilateral salpingectomy Hx of removal of ovary History of ankle surgery Social History Social History Household 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:: , 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, 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, 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 intake: current Alcohol intake frequency: holidays/special occasions only Patient Tobacco Use Status: Current everyday Tobacco user Tobacco use type: Cigarette Cigarette Packs Per Day: 0.25 Cigarettes Per Day: 10 Years Smoked: 30 e-Cigarette/Vaping Use: Never Used Use of substances other than those prescribed or required for medical reasons: No Are you DNR?: No Advance Directives: No Advance Directives Information Provided: Yes service: No Current occupational status: employed Current occupation: [employer] Current occupational exposures/hazards: No Cognitive needs: No Hearing needs: No Vision needs: Yes Meds Allergies Allergy/AdvReac Type Severity Reaction Status Date / Time No Known Allergies Allergy Verified 11/18/23 09:12 Home Medications ?Medication ?Instructions ?Recorded ?Confirmed ?Last Taken ?Type blood sugar diagnostic #10 ea 11/29/20 11/18/23 Unknown History diltiazem HCl 240 mg 240 mg PO DAILY 11/29/20 11/18/23 11/18/23 07:00 History capsule,extended release 24 hr, controlled lancets #100 ea 11/29/20 11/18/23 Unknown History multivitamin 1 tab PO DAILY 07/05/21 11/18/23 11/18/23 07:00 History rivaroxaban 20 mg tablet (Xarelto) 20 mg PO DAILY 01/21/23 11/18/23 11/14/23 History aspirin 81 mg tablet,delayed 81 mg PO DAILY 04/15/23 11/18/23 Unknown History release atorvastatin 40 mg tablet 80 mg PO BEDTIME 04/15/23 11/18/23 Unknown History Assessment and Plan Assessment Anesthesia Assessment: Chart Reviewed Documented by User: Anais Tamayo MD 11/18/23 10:44 HPI - Anesthesia Eval Consult details Narrative: 63yo F for Upper Endoscopy and Colonoscopy Xarelto for afib Follows [facility] for subclavian occlusion and carotid stenosis. Last office visit 06/2023 with 1 year f/u, surveillance only 11/18/23 Pre-op: Left subclavian artery stenosis. SBP Left 88, SBP Right 161 Anesthesia Pre-Procedure Meds Is the patient on any of the following meds?: SGLT2 Inhib (Last dose 11/14/23) PMFSH Active Problems Active Problems: All Active Problems Vaginal yeast infection (Acute) Constipation (Acute) Pre-op examination (Acute) Chronic anticoagulation (Acute) Left subclavian artery occlusion (Acute) Carotid artery disease (Acute) Thyroid nodule (Acute) Lung nodule (Acute) Nocturnal hypoxemia (Acute) Epigastric pain (Acute) Irritable bowel syndrome with both constipation and diarrhea (Acute) Abdominal pain (Acute) LORETTA (obstructive sleep apnea) (Acute). Uses CPAP Normal colonoscopy (Acute) Mammogram normal (Acute) Normal Pap smear (Acute) Smoker (Acute) COPD (chronic obstructive pulmonary disease) (Acute). Uses inhaler prn Hyperlipidemia (Acute) HTN (hypertension) (Acute) A-fib (Acute) DM type 2 (diabetes mellitus, type 2) (Acute) Peripheral Artery Disease Past Medical History Medical History GERD (gastroesophageal reflux disease) Abdominal pain LORETTA (obstructive sleep apnea) Normal colonoscopy Mammogram normal Normal Pap smear Smoker COPD (chronic obstructive pulmonary disease) Hyperlipidemia HTN (hypertension) A-fib DM type 2 (diabetes mellitus, type 2) Ectopic Family History Family History Father Hypertension Diabetes Mother Hypertension Diabetes Heart attack History of open heart surgery Breast cancer Family history of problems with anesthesia: No Surgical History Surgical History H/O colonoscopy History of cardiac radiofrequency ablation (RFA) H/O unilateral salpingectomy Hx of removal of ovary History of ankle surgery History of Problems with Anesthesia: No Social History Social History 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:: , 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, 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, 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 intake: current Alcohol intake frequency: holidays/special occasions only Patient Tobacco Use Status: Current everyday Tobacco user Tobacco use type: Cigarette Cigarette Packs Per Day: 0.25 Cigarettes Per Day: 10 Years Smoked: 30 e-Cigarette/Vaping Use: Never Used Use of substances other than those prescribed or required for medical reasons: No Are you DNR?: No Advance Directives: No Advance Directives Information Provided: Yes service: No Current occupational status: employed Current occupation: [employer] Current occupational exposures/hazards: No Cognitive needs: No Hearing needs: No Vision needs: Yes Meds Allergies Allergy/AdvReac Type Severity Reaction Status Date / Time No Known Allergies Allergy Verified 11/18/23 09:12 Home Medications ?Medication ?Instructions ?Recorded ?Confirmed ?Last Taken ?Type blood sugar diagnostic #10 ea 11/29/20 11/18/23 Unknown History diltiazem HCl 240 mg 240 mg PO DAILY 11/29/20 11/18/23 11/18/23 07:00 History capsule,extended release 24 hr, controlled lancets #100 ea 11/29/20 11/18/23 Unknown History multivitamin 1 tab PO DAILY 07/05/21 11/18/23 11/18/23 07:00 History rivaroxaban 20 mg tablet (Xarelto) 20 mg PO DAILY 01/21/23 11/18/23 11/14/23 History aspirin 81 mg tablet,delayed 81 mg PO DAILY 04/15/23 11/18/23 Unknown History release atorvastatin 40 mg tablet 80 mg PO BEDTIME 04/15/23 11/18/23 Unknown History Exam Height,Weight and Vital Signs: Height 5 ft 4 in Weight 76.204 kg Vital Signs Temp Pulse Resp BP Pulse Ox O2 Del Method 11/18/23 10:04 76 16 11/18/23 09:29 97.5 F 86 16 150/56 H 96 Room Air Pertinent Lab Results Pertinent Lab Results: Lab Results 11/18/23 Range/Units 09:46 POC Glucose 116 H (60-115) mg/dL Airway Mallampati Class: III TM Dist: >3cm Neck ROM: Full Loose/Missing/Broken Teeth: No (Denies broken, loose, missing teeth) Heart: RRR Lungs: Occasional wheeze s/p respiratory treatment with albuterol Assessment and Plan Assessment Anesthesia Assessment: Anesthesia Plan Discussed and Chart Reviewed Final Anesthetic Review Family History of Problems with Anesthesia: No History of Problems with Anesthesia: No NPO: Yes ASA Class: III Final Preanesthetic Review: No Changes in Pt Med Stat, Meds/Allgs Chart Reviewed, Consent Obtained/Reviewed and Anes Risks/Benef Reviewed Patient Risk: Intermediate Procedure Risk: Low Assessment/Block/Sedation in SS: Assess/Block/Sedation-SS Anesthetic Plan Anesthetic Plan: MAC: and TIVA Disposition: Standard PACU
--- NOTE | 2023-11-18 09:16 | MHC.SHP ---
Pre-Procedural Eval Section A - 24 Hr Update-Section A only Date of Service: 11/18/23 Section B - Complete if H&P > 30 days Chief Complaint: Epigastric pain,IBS Details of Present Illness: screening colonoscopy Relevant Family History (Specify if Yes): No Relevant Social History: Tobacco Use Present Medications: see Short Stay Collaborative assessment Medical History: Significant History (GERD (gastroesophageal reflux disease) Abdominal pain LORETTA (obstructive sleep apnea) Normal colonoscopy Mammogram normal Normal Pap smear Smoker COPD (chronic obstructive pulmonary disease) Hyperlipidemia HTN (hypertension) A-fib DM type 2 (diabetes mellitus, type 2) Ectopic ) History of Previous Operations: Relevant previous surgery/procedure and date(s) (unilateral salpingectomy Hx of removal of ovary History of ankle surgery) Allergies: Allergies Allergy/AdvReac Type Severity Reaction Status Date / Time No Known Allergies Allergy Verified 11/18/23 09:12 Review of Systems Sugical H&P ROS: Negative: Constitution, Cardiovascular, Respiratory, Neurological, Psychiatric, Hem-Onc, Allergic/Immunologic, Gastrointestinal, Genitourinary, Musculoskeletal, Integumentary, Endocrine and Eyes/Ears/Nose/Throat Exam Surgical H&P Exam: Normal: HEENT, Normal: Heart, Normal: Lungs, Normal: Extremities, Normal: Abdomen, Normal: Skin and Normal: Neurological Plan Diagnosis/Plan: Unchanged I have reviewed the history and physical and performed a pertinent physical examination on my patient. No changes have occurred unless specified. Time Spent With Patient Time: Total time managing care of this patient today ____ minutes.
[2023-11-18 09:25] VITALS: BMI 28.8
[2023-11-18 09:29] VITALS: BP 150/56; PULSE 86; RESP 16; TEMP 36.4; O2SAT 96
[2023-11-18] MEDS: Lactated Ringers 1,000 ML 100 ML IVCONT (09:39)
--- NOTE | 2023-11-18 09:54 | HO.OPN-COLON ---
Colonoscopy Operative Note Operative Note Date of Service: 11/18/23 Narrative: Operative Information Procedure Description: EGD, Colonoscopy Indication: GERD, screening Anesthesia: MAC FLEXIBLE TRANSORAL UPPER GASTROINTESTINAL ENDOSCOPY AND COLONOSCOPY PROCEDURE NOTE UPPER ENDOSCOPY Consent: Indications for the procedure and potential complications of bleeding, perforation, reaction to medications and missed diagnosis were discussed with the patient and informed consent was obtained. Instrument: Olympus GIF H 190 J mid size upper endoscope Monitoring: Vital signs and clinical assessment, continuous EKG monitoring, Pulse oximetry, Carbon Dioxide monitoring and blood pressure monitoring were done throughout the procedure. Procedure: The patient was placed in the left lateral decubitis position and pre-procedure medications were administered and a bite block was placed. The endoscope was inserted into the mouth and advanced under direct vision to the third part of duodenum. A careful inspection was made as the upper endoscope was withdrawn including a retroflexed examination of the proximal stomach; Findings and interventions are described below. Findings: Larynx:normal Esophagus: GE junction at 39 cm, diaphragm hiatus at 42 cm, streaky erosive esophagitis, LA grade C, bx taken from GEJ and mid/proximal esophagus in separate jars, schatzki ring noted Stomach: Patchy erythema. Biopsies were obtained. Grade 2 flap valve on retroflexed examination of the cardia. Duodenum: Normal bulb and descending duodenum, Intervention: Biopsies as noted above, COLONOSCOPY Instrument: Olympus variable stiffness pediatric scope 190L Colonoscopy Monitoring: Vital signs and clinical assessment, continuous EKG monitoring, Pulse oximetry, Carbon Dioxide monitoring and blood pressure monitoring were done throughout the procedure. Colon withdrawal time was 16 minutes. Procedure: The patient was placed in the left lateral decubitis position and pre-procedure medications were administered. After a digital rectal examination of the ano-rectum, the video colonoscope was inserted into the rectum and advanced through the colon to the cecum/TI. The colonoscope was slowly withdrawn in a retrograde panoramic fashion and the colon mucosa was carefully examined including a retroflexed view of the rectum. Findings and interventions are described below. Procedure Difficulty:moderate Findings: Terminal Ileum-normal Cecum:normal Ascending Colon: 10 mm sessile polyp removed with cold snare Transverse Colon -normal Descending Colon:normal Sigmoid Colon: moderate diverticulosis Rectum: Retroflexion with small internal hemorrhoids, grade I Anorectum - normal Colon preparation: [place] Bowel Preparation Scale Right colon; 1-2 Transverse colon: 2 Left colon; 2 (0 = Unprepared colon segment with mucosa not seen due to solid stool that cannot be cleared. 1 = Portion of mucosa of the colon segment seen, but other areas of the colon segment not well seen due to staining, residual stool and/or opaque liquid. 2 = Minor amount of residual staining, small fragments of stool and/or opaque liquid, but mucosa of colon segment seen well. 3 = Entire mucosa of colon segment seen well with no residual staining, small fragments of stool or opaque liquid) Impression and Post Procedure Diagnosis: Endoscopy Findings: erosive esophagitis schatzki ring small hiatal hernia gastritis Colonoscopy Findings: diverticulosis colon polyp internal hemorrhoids Plan: Await Pathology results Repeat Colonoscopy in 5 years due to polyp or earlier if clinically indicated High fiber diet leaflet avoid straining at stool, epsom salts and sitz bath, anusol supps or cream can consider PPI Above findings were reviewed with the patient and relevant handouts were provided if indicated.
[2023-11-18 10:02] LABS: Glucose, Whole Blood 116 mg/dL (60-115)
[2023-11-18 10:04] VITALS: PULSE 76; RESP 16; O2SAT 96
[2023-11-18] MEDS: Albuterol Sulfate (0.083%) 2.5 MG/3 ML VIAL.NEB INHALE (10:04)
[2023-11-18 11:07] VITALS: BP 96/34; PULSE 88; RESP 16; TEMP 36.1; O2SAT 99
[2023-11-18 11:18] VITALS: BP 137/52; PULSE 86; RESP 14; O2SAT 96
[2023-11-18 11:24] VITALS: BP 122/62; PULSE 83; RESP 17; TEMP 36.5; O2SAT 95
== END 2023-11-18 12:21 | disposition home or self-care (01) ==
PROVIDERS: PCP Internal Medicine; Visit Provider Internal Medicine Gastroenterology
PROC: (CPT 45385; principal; 2023-11-18 10:30)
DX: Z12.11 Encounter for screening for malignant neoplasm of colon (principal); D12.2 Benign neoplasm of ascending colon; K57.30 Diverticulosis of large intestine without perforation or abscess without bleeding; K64.0 First degree hemorrhoids; R10.13 Epigastric pain; K20.80 Other esophagitis without bleeding; K29.70 Gastritis, unspecified, without bleeding; K22.2 Esophageal obstruction; K44.9 Diaphragmatic hernia without obstruction or gangrene; I10 Essential (primary) hypertension; E11.9 Type 2 diabetes mellitus without complications; J44.9 Chronic obstructive pulmonary disease, unspecified; I48.91 Unspecified atrial fibrillation; G47.33 Obstructive sleep apnea (adult) (pediatric); Z79.01 Long term (current) use of anticoagulants
CPT/HCPCS: 45385; 43239; 82947; 88305; 88313; 94640; J1596; J2704

== ENCOUNTER → 2023-11-18 08:32 | Outpatient (BNV) | payer OTHER, SELFPAY | PROVIDERS: PCP Internal Medicine; Visit Provider Internal Medicine Gastroenterology | DX: Z12.11 Encounter for screening for malignant neoplasm of colon (principal); K63.5 Polyp of colon; K57.30 Diverticulosis of large intestine without perforation or abscess without bleeding; K64.0 First degree hemorrhoids; K21.00 Gastro-esophageal reflux disease with esophagitis, without bleeding; K22.2 Esophageal obstruction; K29.70 Gastritis, unspecified, without bleeding | CPT/HCPCS: 43239; 45385 ==

== ENCOUNTER 2023-12-02 12:11 | Outpatient (AMB) | payer OTHER, SELFPAY ==
--- NOTE | 2023-12-02 12:15 | MHC.OFFVIS ---
Vital Signs 12/02/23 12:18 Height 5 ft 4 in Weight 167 lb 8.821 oz BMI 28.8 BP 123/53 L Blood Pressure Location Rt brachial Position Sitting Pulse 84 Intake Visit Reasons: s/p egd/colon Lopez Intake Note: Phyllis presents in the office as a follow up egd and colonoscopy. CC: Just here for the results! No concerns. Allergies No Known Allergies Allergy (Verified 11/18/23 09:12) HPI HPI s/p egd/colon Lopez: Details: Assessment & Plan (1) Epigastric pain: Code(s): R10.13 - Epigastric pain (2) Irritable bowel syndrome with both constipation and diarrhea: Code(s): K58.2 - Mixed irritable bowel syndrome (3) Chronic anticoagulation: Code(s): Z79.01 - halfway (current) use of anticoagulants (4) Left subclavian artery occlusion: Comment: segmental, proximal, with distal flow reconstitution 02/02, referred to vascular surg 03/05 Code(s): I70.8 - Atherosclerosis of other arteries (5) LORETTA (obstructive sleep apnea): Comment: CPAP USE Code(s): G47.33 - Obstructive sleep apnea (adult) (pediatric) (6) Smoker: Comment: 07/15 ppd Code(s): F17.200 - Nicotine dependence, unspecified, uncomplicated (7) COPD (chronic obstructive pulmonary disease): Code(s): J44.9 - Chronic obstructive pulmonary disease, unspecified (8) A-fib: Comment: [facility] Dr. Frost , Q 6 months Code(s): I48.91 - Unspecified atrial fibrillation (9) Pre-op examination: Code(s): Z01.818 - Encounter for other preprocedural examination (10) Constipation: Code(s): K59.00 - Constipation, unspecified (11) Vaginal yeast infection: Code(s): B37.31 - Acute candidiasis of vulva and vagina Plan Customer Service Correspondence Clerk [facility] cardiology re: stenosis. She says her rn maternity did not feel the procedures should be a problem, we will have to contact them. She is doing well with her famotidine. She has been having some increasing constipation recently, she is not sure why there is been no medicine changes, and she purchased some [id number] stool softeners to try to address this. If this continues I will be more than happy to help her manage this.. She also brings up the fact that she has been having vaginal itching and discharge without any risk of STD which likely is a vaginal yeast infection. We discussed the use of getg-qzu-jsxhzsz Monistat either 3 day suppositories or 7 day creams and if this is not resolved then she can feel free to contact me about this.. Her needs an appt to see me, he was struggling with afib but has now been cardioverted and is ready for colonoscopy. I will have him make a follow-up appointment to see me today we will go from there. There are no prior problems with anesthesia or sedation. She has obstructive sleep apnea, AFib asthma/COPD and subclavian artery the left and we are contacting her rn maternity for clearance. There are no infectious problems. There is no known family history of colon cancer or polyps and her last colonoscopy was at age 51 and was negative. Return office visit in 6 months for her chronic GERD. Of course I will see her after the colonoscopy once we obtain clearance. Orders: Orders EGD/[place] Combo - GI Use Only Today R10.13 - Epigastric pain Medications: Refilled famotidine (Pepcid) 40 mg PO BEDTIME 30 days 90 tabs 3RF R10.13 - Epigastric pain EGD/COLONOSCOPY 11/18/23 Findings: Larynx:normal Esophagus: GE junction at 39 cm, diaphragm hiatus at 42 cm, streaky erosive esophagitis, LA grade C, bx taken from GEJ and mid/proximal esophagus in separate jars, schatzki ring noted Stomach: Patchy erythema. Biopsies were obtained. Grade 2 flap valve on retroflexed examination of the cardia. Duodenum: Normal bulb and descending duodenum, Findings: Terminal Ileum-normal Cecum:normal Ascending Colon: 10 mm sessile polyp removed with cold snare Transverse Colon -normal Descending Colon:normal Sigmoid Colon: moderate diverticulosis Rectum: Retroflexion with small internal hemorrhoids, grade I Anorectum - normal Impression and Post Procedure Diagnosis: Endoscopy Findings: erosive esophagitis schatzki ring small hiatal hernia gastritis Colonoscopy Findings: diverticulosis colon polyp internal hemorrhoids Plan: Await Pathology results Repeat Colonoscopy in 5 years due to polyp or earlier if clinically indicated High fiber diet leaflet avoid straining at stool, epsom salts and sitz bath, anusol supps or cream can consider PPI Biopsy Received: 11/18/23 Diagnosis A. Colon, ascending, polypectomy: Sessile serrated lesion/polyp; negative for cytologic dysplasia. B. GE junction, biopsy: - Cardiofundic-type mucosa with mild chronic inactive inflammation; no intestinal metaplasia seen. - No squamous epithelium present. C. Esophagus, mid and proximal, biopsy: - Active esophagitis (few neutrophils and eosinophils). - Small fragments of gastric epithelium within normal limits TODAY'S VISIT The colonoscopy needs to be repeated in 5 years due to the finding of a sessile serrated polyp. The procedure was well tolerated. The results were explained and the patient is agreeable to the follow-up interval as stated. The bowel pattern has returned to normal. Education was provided to tell any 1st degree relatives about their findings to be sure that they are screened by age 45. Educated that they will be put on a recall list when it is time for their repeat scope but should they move out of state or away from the hospital they will need to remember along with their primary to repeat the procedure in a timely fashion to avoid any adverse complications. She does not feel HB but since she is compliant with the famotidine qhs adn still has active esphagitis will add omeprazole 20mg qam. Biopsy did not show Crystal's mucosa despite the Schatzki's ring. ROV 6 mos. PFSH Medical History (Updated 12/02/23 @ 12:41 by KAM Powell) GERD (gastroesophageal reflux disease) Abdominal pain LORETTA (obstructive sleep apnea) Normal colonoscopy Mammogram normal Normal Pap smear Smoker COPD (chronic obstructive pulmonary disease) Hyperlipidemia HTN (hypertension) A-fib DM type 2 (diabetes mellitus, type 2) Ectopic Surgical History (Updated 12/02/23 @ 12:19 by VANDANA Marrero) Hx of endoscopy H/O colonoscopy History of cardiac radiofrequency ablation (RFA) H/O unilateral salpingectomy Hx of removal of ovary History of ankle surgery Family History Father Hypertension Diabetes Mother Hypertension Diabetes Heart attack History of open heart surgery Breast cancer Social History Household 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:: , 3 children, 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, 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 intake: current Alcohol intake frequency: holidays/special occasions only Patient Tobacco Use Status: Current everyday Tobacco user Tobacco use type: Cigarette Cigarette Packs Per Day: 0.25 Cigarettes Per Day: 10 Years Smoked: 30 e-Cigarette/Vaping Use: Never Used service: No Current occupational status: employed Current occupation: [employer] Current occupational exposures/hazards: No Cognitive needs: No Hearing needs: No Vision needs: Yes Review of Systems Const Denies fatigue, Denies fever(s), Denies night sweats, Denies poor appetite and Denies weight loss ENT Reports Normal hearing present, Denies dental pain, Denies dysphagia, Denies hearing loss, Denies mouth pain, Denies odynophagia, Denies throat swelling, Denies tongue swelling and Reports other (Dentition adequate) Card Reports no additional complaints Resp Reports no additional complaints GI Details: Denies abdominal pain, Denies melena, Denies bloating, Denies hematochezia, Denies constipation, Denies GI cramping, Denies dysphagia, Denies excessive flatus, Denies early satiety, Reports heartburn, Denies diarrhea, Denies nausea, Denies odynophagia, Denies vomiting and Denies hematemesis Skin/Breast Denies pruritus, Denies lesions, Denies rash and Denies jaundice Neuro Reports Normal hearing present and Denies Abnormal speech present Endo Denies fatigue Aller/Immun Denies throat swelling and Denies tongue swelling Physical Exam Vital Signs: Last Vital Signs Pulse 84 12/02/23 12:18 BP 123/53 L 12/02/23 12:18 BMI result Body Mass Index 28.8 Const General: cooperative, no acute distress, well developed and well groomed Nutritional Appearance: well nourished and overweight Orientation/consciousness: oriented to person, oriented to place and oriented to time Limitations: No language barrier HEENT Head: Yes normocephalic and Yes atraumatic Eyes General: appearance normal, both eyes and all related structures Pupils: Equal, round and reactive pupils present Neck Neck: Yes normal visual inspection and Yes no lymphadenopathy Thyroid: Thyroid normal Resp Effort & Inspection: normal respiratory effort and able to speak in complete sentences Auscultation: clear to auscultation bilaterally Cardio Rate: regular rate Rhythm: regular rhythm Heart sounds: Normal, physiologic split S2 sound present Peripheral pulses: radial pulses present and posterior tibial pulses present GI Inspection: No distended and No Abdominal panniculus present Palpation (GI): Soft to palpation, nontender, no guarding, not rigid and No hepatosplenomegaly present Percussion: Yes normal to percussion Auscultation: normal bowel sounds Rectal Exam - Female: deferred Skin General skin exam: no rashes or lesions noted, turgor normal, skin not dry, no jaundice, No spider nevi and no striae Rashes: no rashes Nails: normal Neuro General: oriented to person, oriented to place and oriented to time Cranial nerves: Yes Equal, round and reactive pupils present and Yes Normal hearing present Speech: No Abnormal speech present Extrem General: Yes normal to inspection, No clubbing, No cyanosis and No edema Psych Appearance: grossly normal and well kempt Mental Status: mental status grossly normal Speech and movement: Normal speech and movement present Affect: normal affect Attitude: cooperative Thought process: Normal thought process present and not confabulating Thought content: Normal thought content present Insight: Fair insight present (Psych) Judgement: Fair judgement present (Psych) Results Reviewed Results Reviewed: EGD/COLONOSCOPY 11/18/23 Findings: Larynx:normal Esophagus: GE junction at 39 cm, diaphragm hiatus at 42 cm, streaky erosive esophagitis, LA grade C, bx taken from GEJ and mid/proximal esophagus in separate jars, schatzki ring noted Stomach: Patchy erythema. Biopsies were obtained. Grade 2 flap valve on retroflexed examination of the cardia. Duodenum: Normal bulb and descending duodenum, Findings: Terminal Ileum-normal Cecum:normal Ascending Colon: 10 mm sessile polyp removed with cold snare Transverse Colon -normal Descending Colon:normal Sigmoid Colon: moderate diverticulosis Rectum: Retroflexion with small internal hemorrhoids, grade I Anorectum - normal Impression and Post Procedure Diagnosis: Endoscopy Findings: erosive esophagitis schatzki ring small hiatal hernia gastritis Colonoscopy Findings: diverticulosis colon polyp internal hemorrhoids Plan: Await Pathology results Repeat Colonoscopy in 5 years due to polyp or earlier if clinically indicated High fiber diet leaflet avoid straining at stool, epsom salts and sitz bath, anusol supps or cream can consider PPI Biopsy Received: 11/18/23 Diagnosis A. Colon, ascending, polypectomy: Sessile serrated lesion/polyp; negative for cytologic dysplasia. B. GE junction, biopsy: - Cardiofundic-type mucosa with mild chronic inactive inflammation; no intestinal metaplasia seen. - No squamous epithelium present. C. Esophagus, mid and proximal, biopsy: - Active esophagitis (few neutrophils and eosinophils). - Small fragments of gastric epithelium within normal limits Assessment & Plan Assessment & Plan (1) Erosive esophagitis: Code(s): K22.10 - Ulcer of esophagus without bleeding Category: Medical (2) Tubular adenoma of colon: Comment: 2023 SCOPE= SESSILE SERRATED, REPEAT IN 5 YEARS Code(s): D12.6 - Benign neoplasm of colon, unspecified Category: Medical Plan The colonoscopy needs to be repeated in 5 years due to the finding of a sessile serrated polyp. The procedure was well tolerated. The results were explained and the patient is agreeable to the follow-up interval as stated. The bowel pattern has returned to normal. Education was provided to tell any 1st degree relatives about their findings to be sure that they are screened by age 45. Educated that they will be put on a recall list when it is time for their repeat scope but should they move out of state or away from the hospital they will need to remember along with their primary to repeat the procedure in a timely fashion to avoid any adverse complications. She does not feel HB but since she is compliant with the famotidine qhs adn still has active esphagitis will add omeprazole 20mg qam. Biopsy did not show Crystal's mucosa despite the Schatzki's ring. ROV 6 mos. Medications: New omeprazole 20 mg PO QAM 30 caps 6RF 30 days K22.10 - Ulcer of esophagus without bleeding Refilled famotidine (Pepcid) 40 mg PO BEDTIME 90 tabs 3RF 30 days R10.13 - Epigastric pain Coding Level of Care Code Est Pt Level 3 (54291) Diagnoses Erosive esophagitis K22.10 Tubular adenoma of colon D12.6
[2023-12-02 12:18] VITALS: BP 123/53; PULSE 84; BMI 28.8
== END 2023-12-02 12:52 | disposition home or self-care (01) ==
PROVIDERS: PCP Internal Medicine; Referring Provider Internal Medicine; Visit Provider Nurse Practitioner
DX: K22.10 Ulcer of esophagus without bleeding (principal); D12.6 Benign neoplasm of colon, unspecified
CPT/HCPCS: 99213

== ENCOUNTER → 2023-12-02 12:11 | Outpatient (BNVA) | payer OTHER, SELFPAY | PROVIDERS: PCP Internal Medicine; Visit Provider Nurse Practitioner | DX: K22.10 Ulcer of esophagus without bleeding (principal); D12.6 Benign neoplasm of colon, unspecified | CPT/HCPCS: 99212 ==

== ENCOUNTER 2023-12-15 08:55 | Outpatient (REF) | payer OTHER, SELFPAY ==
[2023-12-15 10:19] LABS: MANUAL DIFF FLAG NO
[2023-12-15 10:38] LABS: Basophils Absolute Auto 0.1 X10*3/uL (0.0-0.2); Basophils Percent Auto 0.6 % (0-2); Eosinophils Absolute Auto 0.2 X10*3/uL (0.0-0.4); Eosinophils Percent Auto 1.8 % (0-4); Hematocrit 42.9 % (37.0-47.0); Hemoglobin 13.7 g/dl (12.0-16.0); Imm Gran Abs Auto 0.04 X10*3/uL (0.00-0.03); Imm Gran Pct Auto 0.4 % (0.0-0.4); Lymphocytes Absolute Auto 3.1 X10*3/uL (1.2-4.9); Lymphocytes Percent Auto 28.6 % (20-40); Mean Corpuscular HGB Conc 31.9 g/dl (31.0-35.0); Mean Corpuscular Hemoglobin 29.9 pg (27.0-33.0); Mean Corpuscular Volume 93.7 fL (80.0-98.0); Monocytes Absolute Auto 0.9 X10*3/uL (0.1-1.2); Monocytes Percent Auto 8.4 % (2-11); Neutrophils Absolute Auto 6.6 x10*3/uL (2.0-8.3); Neutrophils Percent Auto 60.2 % (45-73); Platelet Count 312 X10*3/uL (160-400); Red Blood Count 4.58 X10*6/uL (4.20-5.50); Red Cell Distribution Width 14.3 % (11.0-16.0); White Blood Count 10.9 X10*3/uL (4.8-10.8)
[2023-12-15 10:59] LABS: Alanine Aminotransferase 20 U/L (0-31); Albumin Level 4.3 g/dL (3.5-5.0); Alkaline Phosphatase 74 U/L (39-117); Anion Gap 12 (12-20); Aspartate Amino Transferase 22 U/L (5-31); Bilirubin Total 0.2 mg/dL (0.0-1.0); Blood Urea Nitrogen 24 mg/dL (9-16); Calcium 10.2 mg/dL (8.4-10.2); Carbon Dioxide 28 mmol/L (22-29); Chloride 104 mmol/L (96-108); Cholesterol 128 mg/dL (<200); Creatinine Urine 99.85 mg/dL; Estimated Glomerular Filt Rate 57; Glucose Fasting 105 mg/dL (60-99); HDL Cholesterol 35 mg/dL (>40); LDL Cholesterol Calculated 68 mg/dL (<100); Potassium 4.7 mmol/L (3.3-5.1); Sodium 139 mmol/L (135-145); Total Protein 7.3 g/dL (6.5-8.0); Triglycerides 129 mg/dL (<150)
[2023-12-15 11:04] LABS: Estimated Average Glucose 131 mg/dL; Hemoglobin A1c % 6.2 % (<6.0)
== END 2023-12-15 08:56 | disposition home or self-care (01) ==
LOC: HO.HMGCLDS 08:55
PROVIDERS: PCP Internal Medicine; Visit Provider Internal Medicine
DX: E11.9 Type 2 diabetes mellitus without complications (principal); I48.91 Unspecified atrial fibrillation; I10 Essential (primary) hypertension; E78.5 Hyperlipidemia, unspecified
CPT/HCPCS: 36415; 80053; 80061; 82043; 82570; 83036; 85025

== ENCOUNTER 2023-12-16 08:40 | Outpatient (AMB) | payer OTHER, SELFPAY ==
[2023-12-16 08:40] VITALS: BP 102/64; PULSE 85; O2SAT 97; BMI 28.8
--- NOTE | 2023-12-16 08:40 | A.OFFPC_ITS ---
Vital Signs 12/16/23 08:40 Height 5 ft 4 in Weight 168 lb BMI 28.8 BP 102/64 Blood Pressure Location Rt brachial Position Sitting Pulse 85 Pulse Source Pulse Oximeter Pulse Oximetry (%) 97 Oxygen Delivery Method Room Air Intake Visit Reasons: 4M F/U Intake Note: Pt is here today for 4 months follow up visit. Allergies No Known Allergies Allergy (Verified 12/16/23 08:42) Medication List - Last Reconciled 12/16/23 by Dinora Monique MD albuterol sulfate 90 mcg/actuation 2 puffs inhalation QID PRN aspirin 81 mg PO DAILY atorvastatin 80 mg PO BEDTIME benzonatate 100 mg PO TID blood sugar diagnostic As directed CPAP (CPAP Machine/Device) As directed diltiazem HCl ER 240 mg PO DAILY empagliflozin (Jardiance) 25 mg PO DAILY famotidine (Pepcid) 40 mg PO BEDTIME 30 days fluticasone furoate-vilanterol 100-25 mcg/dose (Breo Ellipta) 1 inh PO DAILY ipratropium-albuterol 0.5 mg-3 mg(2.5 mg base)/3 mL 3 mL inhalation Q4-6H PRN lancets As directed lisinopril 40 mg PO DAILY metformin 1,000 mg PO DAILY multivitamin 1 tab PO DAILY omeprazole 20 mg PO QAM 30 days rivaroxaban (Xarelto) 20 mg PO DAILY Tobacco use date assessed: 12/16/23 Dental Screening Dental Screen Date: 09/04/23 HPI 4M F/U HPI Details Pt presents for f/u COPD, hyperlipid, DM 2, paroxysmal Afib, stable on meds. [facility] Medical History GERD (gastroesophageal reflux disease) Abdominal pain LORETTA (obstructive sleep apnea) Normal colonoscopy Mammogram normal Normal Pap smear Smoker COPD (chronic obstructive pulmonary disease) Hyperlipidemia HTN (hypertension) A-fib DM type 2 (diabetes mellitus, type 2) Ectopic Surgical History Hx of endoscopy H/O colonoscopy History of cardiac radiofrequency ablation (RFA) H/O unilateral salpingectomy Hx of removal of ovary History of ankle surgery Family History Father Hypertension Diabetes Mother Hypertension Diabetes Heart attack History of open heart surgery Breast cancer Social History Household 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:: , 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, 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, 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 intake: current Alcohol intake frequency: holidays/special occasions only Patient Tobacco Use Status: Current everyday Tobacco user Tobacco use type: Cigarette Cigarette Packs Per Day: 0.25 Cigarettes Per Day: 10 Years Smoked: 30 e-Cigarette/Vaping Use: Never Used service: No Current occupational status: employed Current occupation: [employer] Current occupational exposures/hazards: No Cognitive needs: No Hearing needs: No Vision needs: Yes Questionnaire Thrive Questionnaire Date Thrive assessed: 09/04/23 LORNA-7 AMB Questionnaire LORNA-7 Date LORNA - 7 assessed: 09/04/23 Source: Developed by Drs. Marcio Zamorano, Hollie Pinon, Louis Renae and colleagues, with an educational darvin from [email or web address] Review of Systems Const All systems reviewed & are unremarkable except as noted in HPI and below Eyes Reports no additional complaints ENT Reports no additional complaints Resp Reports no additional complaints GI Reports no additional complaints Reports no additional complaints Physical exam (Primary Care) Vital Signs: Last Vital Signs Pulse 85 12/16/23 08:40 BP 102/64 12/16/23 08:40 Pulse Ox 97 12/16/23 08:40 Oxygen Delivery Method Room Air 12/16/23 08:40 BMI result Body Mass Index 28.8 Tobacco/Smoking Status: Tobacco use Status Tobacco use date assessed 12/16/23 12/16/23 08:45 Patient Tobacco Use Status Current everyday Tobacco 12/16/23 08:45 Tobacco use type Cigarette 12/16/23 08:45 e-Cigarette/Vaping Use Never Used 12/16/23 08:45 Thrive Assessment: Date of Thrive Assessment Date Thrive assessed 09/04/23 12/16/23 08:45 Const General: no acute distress HENMT Head: Yes normal to inspection Face and sinus: Yes normal facial exam Throat: Yes posterior oropharynx normal Eyes General: appearance normal, both eyes and all related structures Neck Neck: Yes supple Resp Effort & Inspection: normal respiratory effort Auscultation: clear to auscultation bilaterally Cardio Rhythm: regular rhythm Heart sounds: S1 normal heart sound present and S2 normal heart sound present GI Inspection: Yes normal to inspection Palpation (GI): Soft to palpation Percussion: Yes normal to percussion Auscultation: normal bowel sounds Assessment and Plan Assessment & Plan (1) Hyperlipidemia: Code(s): E78.5 - Hyperlipidemia, unspecified Plan: Continue statin (2) COPD (chronic obstructive pulmonary disease): Code(s): J44.9 - Chronic obstructive pulmonary disease, unspecified Plan: Continue Breo and DuoNeb (3) HTN (hypertension): Code(s): I10 - Essential (primary) hypertension Plan: Continue current medications (4) A-fib: Comment: [employer] , status post catheter ablation 2021, f/u Q 6 months, nl Echo Code(s): I48.91 - Unspecified atrial fibrillation Plan: Continue current medications and follow-up with Cardiology (5) DM type 2 (diabetes mellitus, type 2): Code(s): E11.9 - Type 2 diabetes mellitus without complications Plan: A1c is 6.2, ADA diet regular exercise weight loss discussed with the patient she will increase metformin to 1000 mg twice a day and continue Jardiance, follow-up in 4 months with a fasting labs before Orders: Orders Hemoglobin A1c 4 Months E11.9 - Type 2 diabetes mellitus without complications, E78.5 - Hyperlipidemia, unspecified, I10 - Essential (primary) hypertension, I48.91 - Unspecified atrial fibrillation, J44.9 - Chronic obstructive pulmonary disease, unspecified Comprehensive [place]. Panel Fast 4 Months E11.9 - Type 2 diabetes mellitus without complications, E78.5 - Hyperlipidemia, unspecified, I10 - Essential (primary) hypertension, I48.91 - Unspecified atrial fibrillation, J44.9 - Chairman Ceo sayda obstructive pulmonary disease, unspecified Complete Blood Count Auto Diff 4 Months E11.9 - Type 2 diabetes mellitus without complications, E78.5 - Hyperlipidemia, unspecified, I10 - Essential (primary) hypertension, I48.91 - Unspecified atrial fibrillation, J44.9 - Chronic obstructive pulmonary disease, unspecified Microalbumin, Random (w Creat) 4 Months E11.9 - Type 2 diabetes mellitus without complications, E78.5 - Hyperlipidemia, unspecified, I10 - Essential (primary) hypertension, I48.91 - Unspecified atrial fibrillation, J44.9 - Ch ronic obstructive pulmonary disease, unspecified Medications: Changed From metformin 1,000 mg PO DAILY 90 tabs 3RF To metformin 1,000 mg PO BID 180 tabs 3RF Coding Level of Care Code Est Pt Level 4 (24283) Complex EM visit Add On G2211 Diagnoses Hyperlipidemia E78.5 COPD (chronic obstructive pulmonary disease) J44.9 HTN (hypertension) I10 A-fib I48.91 DM type 2 (diabetes mellitus, type 2) E11.9
== END 2023-12-16 09:12 | disposition home or self-care (01) ==
PROVIDERS: PCP Internal Medicine; Visit Provider Internal Medicine
DX: E78.5 Hyperlipidemia, unspecified (principal); J44.9 Chronic obstructive pulmonary disease, unspecified; I48.91 Unspecified atrial fibrillation; E11.69 Type 2 diabetes mellitus with other specified complication; I10 Essential (primary) hypertension
CPT/HCPCS: 99214; G2211

== ENCOUNTER 2024-04-01 10:08 | Outpatient (AMB) | payer OTHER, SELFPAY ==
--- NOTE | 2024-04-01 10:09 | MHC.OFFVIS ---
Vital Signs 04/01/24 10:14 Height 5 ft 4 in Weight 161 lb 8 oz BMI 27.7 BP 130/60 Blood Pressure Location Rt brachial Position Sitting Pulse 100 Pulse Source Pulse Oximeter Pulse Oximetry (%) 93 Oxygen Delivery Method Room Air Intake Visit Reasons: 1yr follow up sleep apnea Intake Note: Patient present for a 1 year F/u sleep apnea. Station Worker Required: No Accompanied by: Self / Same As Patient Allergies No Known Allergies Allergy (Verified 04/01/24 10:11) HPI Comments Details: 63 y/o female patient presents for follow up of LORETTA on CPAP. Pt reports that wakes up dry mouth every morning and needs to fill up the humidifier everyday. Pt has not try to adjust humidifier setting. She cut down smoking, and smokes less than half pack a day, 8-10 cigarettes a day. Pt lost about 10 lb over the last 6 month. She stop eating out and try to eat more healthy. The CPAP compliance and therapy response (12/24/23- 03/22/24) reviewed with the patient. Pt is on CPAP at [id number]. The usage days 100% and the average usage hours 7 hors 53 min. The average AHI was 2.3. she lost over 40 lbs since her last sleep study in 2021 . Pt reports she sleeps well and daytime tiredness has improved. [facility] Medical History GERD (gastroesophageal reflux disease) Abdominal pain LORETTA (obstructive sleep apnea) Normal colonoscopy Mammogram normal Normal Pap smear Smoker COPD (chronic obstructive pulmonary disease) Hyperlipidemia HTN (hypertension) A-fib DM type 2 (diabetes mellitus, type 2) Ectopic Surgical History Hx of endoscopy H/O colonoscopy History of cardiac radiofrequency ablation (RFA) H/O unilateral salpingectomy Hx of removal of ovary History of ankle surgery Family History Father Hypertension Diabetes Mother Hypertension Diabetes Heart attack History of open heart surgery Breast cancer Social History Household 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:: , 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, 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, 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 intake: current Alcohol intake frequency: holidays/special occasions only Patient Tobacco Use Status: Current everyday Tobacco user Tobacco use type: Cigarette Cigarette Packs Per Day: 0.25 Cigarettes Per Day: 10 Years Smoked: 30 e-Cigarette/Vaping Use: Never Used service: No Current occupational status: employed Current occupation: [employer] Current occupational exposures/hazards: No Cognitive needs: No Hearing needs: No Vision needs: Yes Review of Systems ENT Reports Normal hearing present Neuro Reports Normal hearing present Physical Exam Vital Signs: Last Vital Signs Pulse 100 04/01/24 10:14 BP 130/60 04/01/24 10:14 Pulse Ox 93 04/01/24 10:14 Oxygen Delivery Method Room Air 04/01/24 10:14 BMI result Body Mass Index 27.7 Const General: cooperative Orientation/consciousness: patient oriented x3 Resp Effort & Inspection: normal respiratory effort and able to speak in complete sentences Neuro General: patient oriented x3 and gait normal Cranial nerves: Yes Bilaterally intact EOM present, Yes Normal facial strength present, Yes Midline tongue present, Yes Symmetric palate elevation present, Yes Normal hearing present, Yes Ability to bilaterally rotate head present and Yes Ability to bilaterally elevate shoulders present Cognition (Neuro): normal cognition Assessment & Plan Assessment & Plan (1) LORETTA (obstructive sleep apnea): Comment: CPAP USE Code(s): G47.33 - Obstructive sleep apnea (adult) (pediatric) Category: Medical (2) Nocturnal hypoxemia: Code(s): G47.34 - Idiopathic sleep related nonobstructive alveolar hypoventilation Category: Medical Plan Continue to use CPAP at [id number] as patient experiences good clinical effects. Stressed compliance, use CPAP nightly Repeat Home sleep study to reassess as she lost over 40 lbs Orders: Orders RT home sleep study Today G47.33 - Obstructive sleep apnea (adult) (pediatric) Coding Level of Care Code Est Pt Level 4 (16344) Diagnoses LORETTA (obstructive sleep apnea) G47.33 Nocturnal hypoxemia G47.34
[2024-04-01 10:14] VITALS: BP 130/60; PULSE 100; O2SAT 93; BMI 27.7
== END 2024-04-01 10:36 | disposition home or self-care (01) ==
PROVIDERS: Absent Provider Psychiatry & Neurology Neurology; PCP Internal Medicine; Visit Provider Psychiatry & Neurology Neurology
DX: G47.33 Obstructive sleep apnea (adult) (pediatric) (principal); G47.34 Idiopathic sleep related nonobstructive alveolar hypoventilation
CPT/HCPCS: 99214

== ENCOUNTER → 2024-04-01 10:08 | Outpatient (BNVA) | payer OTHER, SELFPAY | PROVIDERS: Absent Provider Psychiatry & Neurology Neurology; PCP Internal Medicine; Visit Provider Psychiatry & Neurology Neurology | DX: G47.33 Obstructive sleep apnea (adult) (pediatric) (principal); G47.34 Idiopathic sleep related nonobstructive alveolar hypoventilation | CPT/HCPCS: 99212 ==

== ENCOUNTER 2024-04-19 10:09 | Outpatient (REF) | payer OTHER, SELFPAY ==
[2024-04-19 13:14] LABS: MANUAL DIFF FLAG NO
[2024-04-19 13:37] LABS: Basophils Absolute Auto 0.1 X10*3/uL (0.0-0.2); Basophils Percent Auto 0.7 % (0-2); Eosinophils Absolute Auto 0.7 X10*3/uL (0.0-0.4); Hematocrit 44.9 % (37.0-47.0); Imm Gran Abs Auto 0.03 X10*3/uL (0.00-0.03); Imm Gran Pct Auto 0.3 % (0.0-0.4); Lymphocytes Absolute Auto 3.1 X10*3/uL (1.2-4.9); Lymphocytes Percent Auto 26.7 % (20-40); Mean Corpuscular HGB Conc 31.2 g/dl (31.0-35.0); Mean Corpuscular Hemoglobin 29.5 pg (27.0-33.0); Mean Corpuscular Volume 94.7 fL (80.0-98.0); Mean Platelet Volume 12.4 fL (9.4-12.3); Monocytes Percent Auto 8.1 % (2-11); Neutrophils Absolute Auto 6.9 x10*3/uL (2.0-8.3); Neutrophils Percent Auto 58.2 % (45-73); Platelet Count 292 X10*3/uL (160-400); Red Blood Count 4.74 X10*6/uL (4.20-5.50); Red Cell Distribution Width 13.8 % (11.0-16.0); White Blood Count 11.8 X10*3/uL (4.8-10.8)
[2024-04-19 13:49] LABS: Estimated Average Glucose 120 mg/dL; Hemoglobin A1C 136.0797 umol/L; Hemoglobin A1c % 5.8 % (<6.0); Total Hemoglobin (HGBA1C) 3416.1277 umol/L
[2024-04-19 13:52] LABS: Alanine Aminotransferase 20 U/L (0-31); Albumin Level 4.3 g/dL (3.5-5.0); Alkaline Phosphatase 76 U/L (39-117); Anion Gap 17 (12-20); Aspartate Amino Transferase 26 U/L (5-31); Bilirubin Total 0.4 mg/dL (0.0-1.0); Blood Urea Nitrogen 14 mg/dL (9-16); Calcium 10.3 mg/dL (8.4-10.2); Carbon Dioxide 29 mmol/L (22-29); Chloride 101 mmol/L (96-108); Estimated Glomerular Filt Rate > 60; Glucose Fasting 122 mg/dL (60-99); Potassium 4.3 mmol/L (3.3-5.1); Sodium 143 mmol/L (135-145); Total Protein 7.6 g/dL (6.5-8.0)
[2024-04-19 14:06] LABS: Creatinine Urine 139.97 mg/dL; Microalbum/Creatinine Ratio Ur 36.4 ug/mg cr (<30)
== END 2024-04-19 10:10 | disposition home or self-care (01) ==
LOC: HO.HMGCLDS 10:09
PROVIDERS: PCP Internal Medicine; Visit Provider Internal Medicine
DX: E78.5 Hyperlipidemia, unspecified (principal); J44.9 Chronic obstructive pulmonary disease, unspecified; I10 Essential (primary) hypertension; I48.91 Unspecified atrial fibrillation; E11.9 Type 2 diabetes mellitus without complications
CPT/HCPCS: 36415; 80053; 82043; 82570; 83036; 85025

== ENCOUNTER 2024-04-20 09:14 | Outpatient (AMB) | payer OTHER, SELFPAY ==
[2024-04-20 09:43] VITALS: BP 112/58; PULSE 95; O2SAT 97; BMI 27.1
--- NOTE | 2024-04-20 09:43 | A.OFFPC_ITS ---
Vital Signs 04/20/24 09:43 Height 5 ft 4 in Weight 158 lb BMI 27.1 BP 112/58 L Blood Pressure Location Rt brachial Position Sitting Pulse 95 Pulse Source Pulse Oximeter Pulse Oximetry (%) 97 Oxygen Delivery Method Room Air Intake Visit Reasons: 4M F/U Intake Note: Pt is here today for 4 months follow up. Allergies No Known Allergies Allergy (Verified 04/20/24 09:45) Medication List - Last Reconciled 04/20/24 by Dinora Monique MD albuterol sulfate 90 mcg/actuation 2 puffs inhalation QID PRN aspirin 81 mg PO DAILY atorvastatin 80 mg PO DAILY blood sugar diagnostic As directed CPAP (CPAP Machine/Device) As directed diltiazem HCl 120 mg PO DAILY empagliflozin (Jardiance) 25 mg PO DAILY famotidine (Pepcid) 40 mg PO BEDTIME 30 days fluticasone furoate-vilanterol 100-25 mcg/dose (Breo Ellipta) 1 inh PO DAILY ipratropium-albuterol 0.5 mg-3 mg(2.5 mg base)/3 mL 3 mL inhalation Q4-6H PRN lancets As directed lisinopril 40 mg PO DAILY metformin 1,000 mg PO BID multivitamin 1 tab PO DAILY omeprazole 20 mg PO QAM 30 days rivaroxaban (Xarelto) 20 mg PO DAILY Tobacco use date assessed: 04/20/24 Dental Screening Dental Screen Date: 09/04/23 HPI 4M F/U 2 HPI Details Patient presents for the follow-up of type 2 diabetes hypertension hyperlipidemia COPD paroxysmal AFib. Patient will be starting lower dose of diltiazem 120mg from 180 because of episodes of lightheadedness changed by her Cardiology Dr. Marroquin. She denies palpitations shortness for breath PND orthopnea. [facility] Medical History GERD (gastroesophageal reflux disease) Abdominal pain LORETTA (obstructive sleep apnea) Normal colonoscopy Mammogram normal Normal Pap smear Smoker COPD (chronic obstructive pulmonary disease) Hyperlipidemia HTN (hypertension) A-fib DM type 2 (diabetes mellitus, type 2) Ectopic Surgical History Hx of endoscopy H/O colonoscopy History of cardiac radiofrequency ablation (RFA) H/O unilateral salpingectomy Hx of removal of ovary History of ankle surgery Family History Father Hypertension Diabetes Mother Hypertension Diabetes Heart attack History of open heart surgery Breast cancer Social History Household 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:: , 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, 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 1. Little interest or pleasure in doing things: not at all 2. Feeling down, depressed, or hopeless: not at all 3. Trouble falling or staying asleep, or sleeping too much: not at all 4. Feeling tired or having little energy: not at all 5. Poor appetite or overeating: not at all 6. Feeling bad about yourself - or that you are a failure or have let yourself or your family down: not at all 7. Trouble concentrating on things, such as reading the newspaper or watching television: not at all 8. Moving or speaking so slowly that other people could have noticed. Or the opposite - being so fidgety or restless that you have been moving around a lot more than usual: not at all 9. Thoughts that you would be better off or of hurting yourself in some way: not at all Total score: 0 Depression Screening Interpretation: Negative Depression Screening Done: Yes 04649 - PHQ-9 Billing: Yes Source: Developed by Drs. Marcio Zamorano, Hollie Pinon, Louis Renae and colleagues, with an educational darvin from [employer]. Thrive Questionnaire Date Thrive assessed: 04/20/24 I am a: Patient What is your living situation today?: I have a steady place to live Within the past 12 months, did the food you bought not last and you didn't have the money to get more?: Never true Within the past 12 months, did you worry whether your food would run out before you got money to buy more?: Never true Do you have trouble paying for medicines?: No Do you have trouble getting transportation to medical appointments?: No Do you have trouble paying your heating and electricity bill?: No Do you have trouble taking care of your child, family member or friend?: No Do you have trouble with day-to-day activities such as bathing, preparing meals, shopping, managing finances, etc.?: No Are you currently unemployed and looking for a job?: No Are you interested in more education?: No Please select the resources that you would like help with: None Currently or been in a relationship where the following occur: No concerns reported THRIVE Score: 0 AUDIT C Alcohol Use Questionnaire (AUDIT-C) 1. How often do you have a drink containing alcohol?: Monthly or less 2. How many drinks containing alcohol do you have on a typical day when you are drinking?: 1 or 2 3. How often do you have six or more drinks on one occasion?: Never Total Score: 1 LORNA-7 AMB Questionnaire LORNA-7 Date LORNA - 7 assessed: 04/20/24 Feeling nervous, anxious, or on edge: 0 = Not at all Not being able to stop or control worryin = Not at all Worrying too much about different things: 0 = Not at all Trouble relaxin = Not at all Being so restless that it is hard to sit still: 0 = Not at all Becoming easily annoyed or irritable: 0 = Not at all Feeling afraid as if something awful might happen: 0 = Not at all Total LORNA-7 score (0-4 normal; 5-9 mild; 10-14 moderate; 15-21 severe): 0 Source: Developed by Drs. Marcio Zamorano, Hollie Pinon, Louis Renae and colleagues, with an educational darvin from [employer]. LORNA-7 Assessment Billing LORNA-7 Assessment Tool: LORNA-7 Assessment 08990 Review of Systems Const All systems reviewed & are unremarkable except as noted in HPI and below Eyes Reports no additional complaints ENT Reports no additional complaints Card Reports no additional complaints Resp Reports no additional complaints GI Reports no additional complaints Reports no additional complaints Physical exam (Primary Care) Vital Signs: Last Vital Signs Pulse 95 04/20/24 09:43 BP 112/58 L 04/20/24 09:43 Pulse Ox 97 04/20/24 09:43 Oxygen Delivery Method Room Air 04/20/24 09:43 BMI result Body Mass Index 27.1 Tobacco/Smoking Status: Tobacco use Status Tobacco use date assessed 04/20/24 04/20/24 09:45 Patient Tobacco Use Status Current everyday Tobacco 04/20/24 09:44 Tobacco use type Cigarette 04/20/24 09:44 e-Cigarette/Vaping Use Never Used 04/20/24 09:44 PHQ-9: PHQ-9 Score PHQ-9: Total score 0 04/20/24 09:55 Depression Screening Interpretation: Negative Thrive Assessment: Date of Thrive Assessment Date Thrive assessed 04/20/24 04/20/24 09:55 Currently or been in a relationship where the following occur: No concerns reported Const General: no acute distress HENNY General nose exam: Normal external nose present Throat: Yes posterior oropharynx normal Resp Effort & Inspection: normal respiratory effort Auscultation: clear to auscultation bilaterally Cardio Rhythm: regular rhythm Heart sounds: S1 normal heart sound present and S2 normal heart sound present GI Inspection: Yes normal to inspection Palpation (GI): Soft to palpation Percussion: Yes normal to percussion Coding Level of Care Code Est Pt Level 4 (52131) Diagnoses COPD (chronic obstructive pulmonary disease) J44.9 HTN (hypertension) I10 A-fib I48.91 DM type 2 (diabetes mellitus, type 2) E11.9 Additional Codes LORNA-7 Assessment Billing - LORNA-7 Assessment Tool: LORNA-7 Assessment [id number] ([id number]) Assessment & Plan Assessment & Plan (1) COPD (chronic obstructive pulmonary disease): Code(s): J44.9 - Chronic obstructive pulmonary disease, unspecified Category: Medical Plan: Continue Breo and albuterol (2) HTN (hypertension): Code(s): I10 - Essential (primary) hypertension Category: Medical Plan: Blood pressure is borderline low but patient will be starting a lower dose of diltiazem tomorrow (3) A-fib: Comment: [employer] , status post catheter ablation 2021, f/u Q 6 months, nl Echo Code(s): I48.91 - Unspecified atrial fibrillation Category: Medical Plan: She will be decreasing diltiazem dose tomorrow but patient has elevated heart rate at rest. She used to take beta-annmarie with a good control of heart rate. She will monitor her heart rate and blood pressure and has a follow-up with Cardiology in 3 months (4) DM type 2 (diabetes mellitus, type 2): Code(s): E11.9 - Type 2 diabetes mellitus without complications Category: Medical Plan: A1c is 5.8, continue current medication ADA diet regular exercise, follow-up in 4 months with a fasting labs before Orders: Orders Comprehensive [place]. Panel Fast 4 Months E11.9 - Type 2 diabetes mellitus wit hout complications, E78.5 - Hyperlipidemia, unspecified, I10 - Essential (primary) hypertension, I48.91 - Unspecified atrial fibrillation Hemoglobin A1c 4 Months E11.9 - Type 2 diabetes mellitus without complications, E78.5 - Hyperlipidemia, unspecified, I10 - Essential (primary) hypertension, I48.91 - Unspecified atrial fibrillation Lipid Panel 4 Months E11.9 - Type 2 diabetes mellitus without complications, E78.5 - Hyperlipidemia, unspecified, I10 - Essential (primary) hypertension, I48.91 - Unspecified atrial fibrillation Complete Blood Count Auto Diff 4 Months E11.9 - Type 2 diabetes mellitus without complications, E78.5 - Hyperlipidemia, unspecified, I10 - Essential (primary) hypertension, I48.91 - Unspecified atrial fibrillation Microalbumin, Random (w Creat) 4 Months E11.9 - Type 2 diabetes mellitus without complications, E78.5 - Hyperlipidemia, unspecified, I10 - Essential (primary) hypertension, I48.91 - Unspecified atrial fibrillation TSH reflex Free T4 4 Months E11.9 - Type 2 diabetes mellitus without complications, E78.5 - Hyperlipidemia, unspecified, I10 - Essential (primary) hypertension, I48.91 - Unspecified atrial fibrillation
== END 2024-04-20 10:48 | disposition home or self-care (01) ==
PROVIDERS: PCP Internal Medicine; Visit Provider Internal Medicine
DX: J44.9 Chronic obstructive pulmonary disease, unspecified (principal); I10 Essential (primary) hypertension; I48.91 Unspecified atrial fibrillation; E11.9 Type 2 diabetes mellitus without complications

== ENCOUNTER → 2024-04-20 09:14 | Outpatient (BNVA) | payer OTHER, SELFPAY | PROVIDERS: PCP Internal Medicine; Visit Provider Internal Medicine | DX: I10 Essential (primary) hypertension (principal); E11.9 Type 2 diabetes mellitus without complications; I48.91 Unspecified atrial fibrillation; J44.9 Chronic obstructive pulmonary disease, unspecified | CPT/HCPCS: 96127; 99212 ==

== ENCOUNTER → 2024-05-12 09:51 | Outpatient (REF) | payer OTHER, SELFPAY | LOC: HO.SL 09:51 | PROVIDERS: PCP Internal Medicine; Visit Provider Psychiatry & Neurology Neurology | DX: G47.33 Obstructive sleep apnea (adult) (pediatric) (principal) | CPT/HCPCS: 95806 ==

== ENCOUNTER → 2024-05-12 10:02 | Outpatient (BNV) | payer OTHER, SELFPAY | PROVIDERS: PCP Internal Medicine; Visit Provider Psychiatry & Neurology Neurology | DX: G47.33 Obstructive sleep apnea (adult) (pediatric) (principal) | CPT/HCPCS: 95806 ==

== ENCOUNTER 2024-08-13 08:47 | Outpatient (REF) | payer OTHER, SELFPAY ==
--- OUTSIDE RECORDS SUMMARY | 2024-08-13 09:05 | XMS_ITS | Data Portability ---
Author Organization [facility] Service Address [address] [place] [address] Assessment Encounter Date Assessment Date Assessment LastModified by Organization Details LastModified Time 11/19/2019 11/19/2019 TELEMED VIDEO 20 minutes pt consented [email or web address] Not available 11/19/2019 10:14:08 Plan of Treatment Reminders Order Date Submit Date Provider Last Modified By Organization Details Last Modified Time Details Appointments None recorded. Lab lipid panel, blood 2018 [email or web address] Not available 9 08:54:26 CMP, serum or plasma 2018 [email or web address] Not available 9 08:54:26 HbA1c (hemoglobi n A1c), blood 2018 CHELSEY Not available 9 07:59:57 microalbum in, urine 2018 CHELSEY Not available 9 07:59:57 hepatitis C Ab, serum 2018 CHELSEY Not available 9 07:59:57 glycohemog lobin, total, blood 2019 [email or web address] Not available 0 08:19:35 Referral None recorded. Procedures None recorded. Surgeries None recorded. Imaging None recorded. Medication Orders lisinopril 10 mg tablet 2018 INTERFACE [facility] [address] [place] [address], [place], [address], 9 09:43:31 azithromyc in 250 mg tablet 2019 020 [facility][id number], [address] [place], [place], [id number], 0 10:58:52 prednisone 10 mg tablet 2019 020 [facility] #30107, [address] [place], [place], [id number], 0 11:01:12 codeine 10 mg-guaifen esin 100 mg/5 mL oral liquid 2019 020 [facility] #85648, [address] [place], [place], [id number], 0 15:27:40 ProAir HFA 90 mcg/actuat ion aerosol inhaler [address] [facility] #09529, [address] [place], [place], [id number], 0 11:17:52 albuterol sulfate 2.5 mg/3 mL (0.083 %) solution for nebulizati on [address] [facility] #22342, [address] [place], [place], [id number], 0 11:18:15 azithromyc in 250 mg tablet 2019 020 [facility] #05989, [address] [place], [place], [id number], 0 10:58:52 prednisone 10 mg tablet 2019 020 [facility] #52960, [address] [place], [place], [id number], 0 11:01:12 codeine 10 mg-guaifen esin 100 mg/5 mL oral liquid 2019 020 [facility] #98293, [address] [place], [place], [id number], 0 15:27:40 Patient TargetsNo targets recorded. Patient Instructions Encounter Date Encounter Id Patient Instructions Last Modified By Organization Details Last Modified Time 05/21/2019 [id number] chronic obstructive pulmonary disease (COPD): care instructions Not available 05/21/2019 09:35:20 learning about copd and how to prevent lung infections Not available 05/21/2019 09:35:20 sleep apnea: car e instructions Not available 05/21/2019 09:35:20 high blood pressure: care instructions Not available 05/21/2019 09:43:30 learning about high blood pressure Not available 05/21/2019 09:43:30 body mass index: care instructions Not available 05/21/2019 09:35:20 learning about healthy weight Not available 05/21/2019 09:35:20 07/27/2019 [id number] sleep apnea: car e instructions Not available 07/27/2019 11:17:34 Quitting Tobacco : Care Instructions Not available 07/27/2019 11:21:06 pulse oximetry* Not available 07/27/2019 11:17:34 chronic obstructive pulmonary disease (COPD): care instructions Not available 07/27/2019 11:17:34 learning about copd and how to prevent lung infections Not available 07/27/2019 11:17:34 08/20/2019 [id number] pulse oximetry* Not availabl e 08/20/2019 11:33:38 sleep apnea: car e instructions Not available 08/20/2019 11:33:38 chronic obstructive pulmonary disease (COPD): care instructions Not available 08/20/2019 11:33:38 learning about copd and how to prevent lung infections Not available 08/20/2019 11:33:38 09/08/2019 [id number] sleep apnea: car e instructions Not available 09/08/2019 11:19:21 pulse oximetry* Not available 09/08/2019 11:19:21 atrial fibrillation: care instructions Not available 09/08/2019 11:19:21 chronic obstructive pulmonary disease (COPD): care instructions Not available 09/08/2019 11:19:21 learning about copd and how to prevent lung infections Not available 09/08/2019 11:19:21 Reason for Referral None Reported. Results Created Date Observation Date Name Description Value Unit Range Abnormal Flag Note LastModifiedBy Organization Detail LastModifiedTime 07/27/19 20 07/27/2019 pulse oxime try* Result 93 Not Available [facility] [address] [facility] [address], [place], [address], 07/27/2019 11:08:05 08/20/19 20 08/20/2019 pulse oxime try* Result 94 Not Available [facility] [address] [facility] [address], [place], [address], 08/20/2019 10:59:40 09/08/19 20 09/08/2019 pulse oxime try* Result 96 Not Available [facility] [address] [facility] [address], [place], [address], 09/08/2019 11:01:43 08/19/19 20 08/18/2019 MAMMO , scree meme, bilat eral No observ ation record ed. ab [facility] [address] [place] [address], [place], [address], 08/20/2019 09:16:10 10/04/19 20 09/20/2019 US, carot id arter y No observ ation record ed. [email or web address] Not Available 2019 14:11:42 10/08/19 20 10/07/2019 trans -thor acic echoc ardio gram (TTE) (PROC ) No observ ation record ed. Dieudonne Elliott MD [address] [place] [address] [address], [place], [address], 10/09/2019 12:57:03 08/24/19 21 08/23/2020 MAMMO , scree meme, digit al, bilat eral No observ ation record ed. [email or web address] [facility] [address] [place] [address] [place], [address], 08/24/2020 16:01:15 Result Notes None recorded. Problems Name Problem SNOMED Code Status Onset Date Resolution Date Notes Provider Name and Address Organization Details Recorded Time Chronic obstructive pulmonary disease 77123303 Active 2017 Negra hernandez [facility] 8 08:14:55 Hypercholes terolemia 12902451 Active 2017 Negragume hernandez [facility] 8 08:15:02 Sleep apnea 53301843 Active 2017 Negra hernandez [facility] 8 08:15:11 Diabetes mellitus 43907798 Active 2017 Negragume hernandez [facility] 8 08:15:29 Atrial fibrillatio n 10538984 Active 2019 VARGHESE Ramos [address] [place] [address], [address], [facility] [place] [facility] 0 11:10:27 Problem Notes None recorded. Procedures Surgical History Date Name Laterality Status Provider Name and Address Organization Details Recorded Time 0 Most Recent Mammogram completed My Morgan [facility] 08/20/2019 08:37:53 Tubal Ligation completed Negra Patel [facility] 11/04/2018 08:05:20 removal of ectopic fetus completed Negra Swift [facility] 11/04/2018 08:05:46 Imaging Results Imaging Date Name Status LastModified by Organization Details LastModified Time 08/18/2019 MAMMO, screening, bilateral completed [facility] [address] [place] [address], [place], [address], 08/20/2019 09:16:10 09/20/2019 US, carotid artery completed [email or web address] Inform ation not available 10/04/2019 14:11:42 10/07/2019 trans-thoracic echocardiogram (TTE) (PROC) completed Dieudonne Elliott MD [address] [place] [address], [place], [address], 10/09/2019 12:57:03 08/23/2020 MAMMO, screening, digital, bilateral completed [email or web address] [facility] [address] [place] [address] [place], [address], 08/24/2020 16:01:15 Procedure Notes None recorded. Medical Equipment None Reported. Allergies No known drug allergies Medications Name Sig Start Date Stop Date Status Note LastModified by Organization Details LastModified Time cyclobenzap rine 10 mg tablet 05/21 completed Not Available Not Available Not Available atorvastati n 40 mg tablet TAKE 1 TABLET BY MOUTH DAILY active Not Available Not Available No t Available metformin 500 mg tablet TAKE 1 TABLET TWICE A DAY active Not Available Not Available No t Available BD Alcohol Swabs APPLY TOPICALLY 1 PAD 4 TIMES A DAY active Not Available Not Available No t Available prednisone 10 mg tablet take 40 mg x 2 daystake 30 mg x 2 days take 20 mg x 2 daystake 10 mg x 2 days 09/08 completed Not Available Not Available Not Available diltiazem ER 180 mg capsule,24 hr,extended release 09/08 completed Not Available Not Available Not Available albuterol sulfate 2.5 mg/3 mL (0.083 %) solution for nebulizatio n Inhale 3 mL every 4 hours by nebulizat ion route as needed for 30 days. active Not Available Not Available No t Available azithromyci n 250 mg tablet TAKE 2 TABLETS (500 MG) BY ORAL ROUTE ONCE DAILY FOR 1 DAY THEN 1 TABLET (250 MG) BY ORAL ROUTE ONCE DAILY FOR 4 DAYS 09/08 completed Not Available Not Available Not Available ibuprofen 800 mg tablet 1 po daily prn 11/04 completed Not Available Not Available Not Available metoprolol succinate ER 50 mg tablet,exte nded release 24 hr TAKE 1 TABLET BY MOUTH EVERY DAY active Not Available Not Available No t Available methylpredn isolone 4 mg tablet 11/08 /2019 completed Not Available Not Available Not Available Accu-Chek Softclix Lancets USE DIRECTED active Not Available Not Available No t Available diltiazem ER 240 mg capsule,24 hr,extended release TK ONE C PO QD active Not Available Not Available No t Available aspirin 81 mg tablet,gallo yed release TAKE 1 TABLET BY MOUTH DAILY 08/20 completed Not Available Not Available Not Available lisinopril 10 mg tablet TAKE 1 TABLET DAILY active Not Available Not Available No t Available aspirin 81 mg chewable tablet TAKE 1 TABLET BY MOUTH DAILY 05/21 completed Not Available Not Available Not Available metoprolol succinate ER 25 mg tablet,exte nded release 24 hr TAKE 1 TABLET DAILY active Not Available Not Available No t Available albuterol sulfate HFA 90 mcg/actuati on aerosol inhaler Inhale 2 puffs every 4 hours by inhalatio n route as needed for 90 days. active Not Available Not Available No t Available amoxicillin 875 mg-potassiu m clavulanate 125 mg tablet Take 1 tablet twice a day by oral route for 7 days. 09/08 completed Not Available Not Available Not Available DILT-XR 120 mg capsule, extended release TAKE 1 TWICE A CAPSULE DAILY 10/19 completed Not Available Not Available Not Available DILT-XR 240 mg capsule, extended release TAKE 1 CAPSULE BY MOUTH DAILY active Not Available Not Available No t Available albuterol nebulizer solution active Not Available Not Available No t Available multivitami n qd active Not Available Not Available Not Available Chantix 0.5 mg tablet TAKE 1 TABLET BY MOUTH TWICE DAILY active Not Available Not Available No t Available Xarelto 20 mg tablet TAKE 1 TABLET BY MOUTH EVERY EVENING active Not Available Not Available No t Available Accu-Chek SmartView Test Strips USE TO CHECK BLOOD GLUCOSE FOUR TIMES DAILY DIRECTED active Not Available Not Available No t Available Breo Ellipta 100 mcg-25 mcg/dose powder for inhalation INHALE 1 PUFF BY MOUTH EVERY DAY active Not Available Not Available No t Available Virtussin AC 10 mg-100 mg/5 mL oral liquid Take 10 mL every day by oral route as needed for 14 days. 10/19 completed Not Available Not Available Not Available Fluarix Quad (PF) 60 mcg (15 mcg x 4)/0.5 mL IM syringe 11/04 completed Not Available Not Available Not Available Flucelvax Quad 60 mcg (15 mcg x 4)/0.5 mL intramuscul ar susp 10/19 completed Not Available Not Available Not Available Afluria Qd (36 mos up)(PF)60 mcg (15 mcg x4)/0.5 mL IM syringe [facility] active Not Available Not Available No t Available Vitals Date Recorded Body height Body mass index (BMI) Body weight Heart rate Oxygen saturation Oxygen saturation in Arterial blood by Pulse oximetry Systolic blood pressure Diastolic blood pressure Provider Name and Address Organization Details Last Updated DateTime 9 161.29 cm 37.2 kg/m2 99377.6 1 g 81 /min 95 % 95 % 150 mm[Hg] 80 mm[Hg] My Morgan [facility] 9 09:09:08 Date Recorded Systolic blood pressure Diastolic blood pressure Provider Name and Address Organization Details Last Updated DateTime 05/21/2019 150 mm[Hg] 80 mm[Hg] October [address], [address] 05/21/2019 09:40:09 Date Recorded Body height Body mass index (BMI) Body weight Heart rate Body temperature Oxygen saturation Oxygen saturation in Arterial blood by Pulse oximetry Systolic blood pressure Diastolic blood pressure Provider Name and Address Organization Details Last Updated DateTime 0 161.29 cm 36.3 kg/m2 59344.5 7 g 89 /min 98.5 [degF] 93 % 93 % 150 mm[Hg] 70 mm[Hg] My Morgan [facility] 0 11:06:40 Date Recorded Body height Body mass index (BMI) Body weight Heart rate Oxygen saturation Oxygen saturation in Arterial blood by Pulse oximetry Body temperature Systolic blood pressure Diastolic blood pressure Provider Name and Address Organization Details Last Updated DateTime 0 161.29 cm 36.8 kg/m2 21990.0 7 g 84 /min 94 % 94 % 98.5 [degF] 150 mm[Hg] 62 mm[Hg] My Morgan [facility] 0 11:01:57 Date Recorded Body height Body mass index (BMI) Body weight Heart rate Oxygen saturation Oxygen saturation in Arterial blood by Pulse oximetry Systolic blood pressure Diastolic blood pressure Provider Name and Address Organization Details Last Updated DateTime 0 161.29 cm 36.2 kg/m2 90076.0 6 g 98 /min 96 % 96 % 170 mm[Hg] 60 mm[Hg] [facility] 0 11:03:28 Date Recorded Body height Provider Name an d Address Organization Details Last Updated DateTime 11/19/2019 161.29 cm [facility]ra [place] [facility] [facility] 11/19/2019 08:42:53 Social History Question Answer Notes LastModified by Organizat ion Details LastModified Time Tobacco Smoking Status Current Some Day Smoker Not Available [facility] 05/16/2020 03:36:23 What Was The Date Of Your Most Recent Tobacco Screening? 11/04/2018 [id number] Information not available 05/16/2020 Sex: Unknown Functional Status None recorded. Mental Status None recorded. Family History Relationship Description Onset Age of this Age Resolved Age Notes LastModified by Organization Details LastModified Time Mother Coronary arterioscler osis 55 [email or web address] Not available 2018 08:03:07 Mother Malignant tumor of breast 55 tbalicki Not available 2018 08:03:28 Mother Diabetes mellitus 55 [email or web address] Not available 2018 08:03:50 Father Diabetes mellitus tbalicki Not available 2018 08:04:05 Father Transient cerebral ischemia tbalicki Not available 2018 08:04:16 Father Carcinoma of prostate tbalicki Not available 2018 08:04:32 Medical History No medical history recorded. Gynecological History Statement/Question Response Most Recent Mammogram 08/18/2019 Obstetrics History GPAL:G 0 P 0 0 0 0 Immunizations Vaccine Type Date Status Note Provider Nam e and Address Organization Details Recorded Time Influenza, split virus, quadrivalent, preservative 9 completed Cassandra hernandez [facility] 10/20/2019 15:27:31 Influenza, split virus, quadrivalent, preservative 0 completed [facility] 05/08/2020 11:21:48 Past Encounters Encounter ID Performer Location Encounter Start Date Encounter Closed Date Diagnosis/Indication Diagnosis SNOMED-CT Code Diagnosis ICD10 Code Diagnosis Note [id number] Ernestina Murguia NP, S [facility] [address] [place] [address] 05/04/2018 09:30:49 05/04/2018 12:33:51 Hypercholesterolemia 32620362 E78.00 HDL 29- was 37, follow, increase exercise Chronic ob structive pulmonary disease 45936749 J44.9 still smokes 3-6 cigarettes daily Diabetes mellitus 920754 09 E11.9 Encourage return to gym, walk every day, continue with no medication Sleep apnea 77185828 G47 .30 100% compliant with positive benefits Heartburn 88551343 R12 discussed, encouraged 100% smoking cessation, increase exercise to permit weight loss Call if recurs or intensifie s [id number] Ernestina Murguia NP, S [facility] [address] [facility],[place] [address] 11/04/2018 08:52:41 11/04/2018 10:33:48 Adult health examination 837436045 Z00.01 Active or passive immunization 447818162 Z23 Diabetes mellitus 478684 09 E11.9 Chronic ob structive pulmonary disease 32057047 J44.9 still smokes 1-2 cigarettes daily Hypercholesterolemia 136 94249 E78.00 Sleep apnea 84945110 G47 .30 100% compliant with positive benefits Screening procedure 2012 5006 Z13.9 [id number] October VARGHESE Ramos [facility] [address] [facility],[place] [address] 05/21/2019 08:50:59 05/21/2019 09:56:18 Hypercholesterolemia 62146576 E78.00 Diabetes mellitus 569533 09 E11.9 generally noncomplia nt with labs, has never been advised to monitor bs at home Chronic ob structive pulmonary disease 24243186 J44.9 Sleep apnea 82247157 G47 .30 Screening procedure 2012 5006 Z13.9 Body mass index 30+ - obesity 720455898 Z68.37 Essential hypertension 10446994 I10 BP were discordant initially, and pt states that this has been for years, but after my check I obtained the same BP in both arms, it was however elevated [id number] [facility] [address] [facility] [address] [address] 07/27/2019 10:59:07 07/27/2019 11:27:37 Chronic obstructive pulmonary disease 65046876 J44.9 Diabetes mellitus 091206 09 E11.9 Sleep apnea 66259683 G47 .30 typically uses cpap, but needs a new mask 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 [address] 09/08/2019 10:25:12 09/08/2019 11:34:47 Atrial fibrillation 92528552 I48.91 new onset seeing cardio xarelto + diltiazem Chronic ob structive pulmonary disease 13030586 J44.9 lungs clear Diabetes mellitus 865527 09 E11.9 continue diet continue metformin Sleep apnea 35083664 G47 .30 using cpap [id number] GLENNA RASMUSSEN [facility] [address] [facility] [address] [address] 11/19/2019 08:30:51 11/19/2019 10:44:36 Atrial fibrillation 25155180 I48.91 stable Chronic ob structive pulmonary disease 67922822 J44.9 stable Diabetes mellitus 490886 09 E11.9 doing more to improve on taking her medication s and taking her BS trying to form a routine to check in the morning and at night so she is aware at what she needs to work at discussed diet and exercise > working more on excluding carbs and sugary foods Health Concerns Section Related Observation LastModified by Organization Detai ls LastModified Time None Recorded Concern Status LastModified by Organization Details LastModified Time None Recorded Advance Directives Directive None Recorded Payers Encounter Date Sequence Insurance Name Policy Number Policy Tirado Covered Member ID Tirado Member ID Guarantor Name 05/21/2019 1 [place] [id number] Phyllis Besner [id number] Phyllis Besner 07/27/2019 1 [place] [id number] Phyllis Besner [id number] Phyllis Besner 08/20/2019 1 [place] [id number] Phyllis Besner [id number] Phyllis Besner 09/08/2019 1 [place] [id number] 2 Phyllis Besner [id number] Phyllis Besner 11/19/2019 1 [place] [id number] 2 Phyllis Besner [id number] Phyllis Besner Notes Date Note Type Note Provider Name a nd Address Organization Details Recorded Time 05/21/2019 text/html needs labs doesn t check bs at home always has wide gap in bp in each arm sleep apnea - may need cpap supplies October VARGHESE Ramos [address] [place] [address], [address], [facility] 05/21/2019 09:44:37 07/27/2019 text/html cough, headache, body aches, yellow sputum, sob, subjective fever, a little nasal congestion, nothing OTC, sick x 3-4 days no chest pain no sore throat no ear pain out of proair hasn't been using breo, had been breathing well until she got sick 12 system ROS negative except where noted above- denies: chest pain, palpitations, sob, ankle swelling, visual problems, hearing problems, muscle aches or pains, numbness or tingling extremities, abdominal pain, bowel issues, bladder issues, sexual dysfunction, abnormal bleeding, sx of sinus/respiratory infection , headaches, dizziness/lighthea dedness, rashes, or nail changes. VARGHESE Baez [address] [place], [address], [facility] [place] [facility] 07/27/2019 11:24:29 08/20/2019 text/html was treated for copd exacerbation 07/27/2019 with pred, zpack, cough syrup, nebulizer. she was feeling better, wasn't using nebulizer as much about a couple weeks ago. she was in the ER 08/11/2019 and was found to have new afib, she has seen cardio she is on xarelto and has echo planned. Then a couple days ago she found that the cough and sob has started to increase again. she is back to using the neb three times a day again. minimal nasal congestion, no fever. feels exhausted, but not sure how long that's been going on 12 system ROS negative except where noted above VARGHESE Baez [address] [place], [address], [facility] [place] [facility] 08/20/2019 11:35:23 09/08/2019 text/html had been seen 08/20 for copd exacerbation was given augmentin and pred with cough syrup. 2 days after completing augmentin went to the ER because she felt the afib again. she was admitted overnight because they couldn;t control her HR. they think that the respiratory infection is was what was triggering the afib she is cardio again for an appointment soon, has an echo next month at some point her diltiazem was increased from 180 daily to 120 bid respirtory/copd - still coughing up phlegm, but improving dm - FBS - 100s-160s, then random levels at various times of the day. she has been taking the metformin. her bs are generally lower than 200. VARGHESE Baez [address] [place], [address], [facility] [place] [facility] 09/08/2019 11:21:15 11/19/2019 text/html TELEMED VIDEO 20 minutes PT consented 6 mo f/u 1) a. fib > stable, no rapid beating, fluttering of the chest, no chest pain, no recent episodes HR has been pretty consistent 2) BP > 136/72, BMP 65, 203 (doing excellent) > right arm is higher (due to stenosis) and left arm (lower) 3) medications > taking metoprolol 50 mg, no fatigue, sob, chest pressure (side effects from medications), doing well on lisinopril and diltiazem as well 4) COPD > stable 5) Type 2 diabetes > last two days it has been high (168 and 203, last readings), trying to start a routine she remembers to take it more consistently not taking her metformin BID, she forgets to take it went over with what the plow shaker discussed with her in terms of the stenosis in her carotid and that it is not at the percentage where it is dangerous goes to work, but only one other person at work and they socially distance from each other no cough, no fever, no chest pain GLENNA RASMUSSEN [address] [facility], [place], [address], [facility] 11/19/2019 10:16:21 OBGyn Episode No OBEpisode recorded.
== END 2024-08-13 08:48 | disposition home or self-care (01) ==
LOC: HO.MAMMO 08:47
PROVIDERS: PCP Internal Medicine; Visit Provider Internal Medicine
DX: Z12.31 Encounter for screening mammogram for malignant neoplasm of breast (principal)
CPT/HCPCS: 77063; 77067

== ENCOUNTER → 2024-08-13 09:00 | Outpatient (BNV) | payer OTHER, SELFPAY | PROVIDERS: PCP Internal Medicine; Visit Provider Internal Medicine | DX: Z12.31 Encounter for screening mammogram for malignant neoplasm of breast (principal) | CPT/HCPCS: 77063; 77067 ==

== ENCOUNTER 2024-09-17 08:03 | Outpatient (REF) | payer OTHER, SELFPAY ==
--- NOTE | ~2024-09-17 | XR_ITS ---
EXAMINATION: XR SHOULDER, RIGHT CLINICAL INFORMATION: M25.511 - Pain in right shoulder COMPARISON: None available. TECHNIQUE: AP external rotation, Grashey, scapular Y, and axillary views of the right shoulder. FINDINGS: Normal bone mineralization. No fracture, dislocation, or suspicious bone lesion. Normal alignment. Minimal osteoarthrosis of the glenohumeral joint. There is mild superior surface spurring of the AC joint. There is a neutral lateral acromion. No undersurface spurring. The subacromial space is preserved. Remainder of the soft tissue and bony structures appear normal. XR/XR shoulder RT min 2V IMPRESSION: 1. No acute findings right shoulder. 2. Minimal osteoarthrosis glenohumeral joint. 3. Mild osteoarthrosis AC joint with small superior surface spurs. Electronically signed by: Mani Slade MD 09/20/2024 12:16 PM EDT
--- OUTSIDE RECORDS SUMMARY | 2024-09-17 08:06 | XMS_ITS | Data Portability ---
Author Organization [facility], Home Service Address [address] [place] [address] Assessment Encounter Date Assessment Date Assessment LastModified by Organization Details LastModified Time 11/19/2019 11/19/2019 TELEMED VIDEO 20 minutes pt consented [email or web address] Not available 11/19/2019 10:14:08 Plan of Treatment Reminders Order Date Submit Date Provider Last Modified By Organization Details Last Modified Time Details Appointments None recorded. Lab glycohemog lobin, total, blood 2019 020 [email or web address] Not available 0 08:19:35 lipid panel, blood 2018 019 [email or web address] Not available 9 08:54:26 CMP, serum or plasma 2018 019 [email or web address] Not available 9 08:54:26 HbA1c (hemoglobi n A1c), blood 2018 CHELSEY Not available 9 07:59:57 microalbum in, urine 2018 019 CHELSEY Not available 9 07:59:57 hepatitis C Ab, serum 2018 019 CHELSEY Not available 9 07:59:57 Referral None recorded. Procedures None recorded. Surgeries None recorded. Imaging None recorded. Medication Orders azithromyc in 250 mg tablet 2019 020 [facility] #[id number], [address], [place], [id number], 0 10:58:52 prednisone 10 mg tablet 2019 020 [facility] [place] [facility] #[id number], [address], [place], [id number], 0 11:01:12 codeine 10 mg-guaifen esin 100 mg/5 mL oral liquid 2019 020 [facility] #10512, [address], [place], [id number], 0 15:27:40 azithromyc in 250 mg tablet 2019 020 [facility] [place] [facility] #34878, [address], [place], [id number], 0 10:58:52 prednisone 10 mg tablet 2019 020 [facility] [place] [facility] #39674, [address], [place], [id number], 0 11:01:12 codeine 10 mg-guaifen esin 100 mg/5 mL oral liquid 2019 020 [facility] #73736, [address], [place], [id number], 0 15:27:40 ProAir HFA 90 mcg/actuat ion aerosol inhaler 2019 020 [facility] #83000, [address], [place], [id number], 0 11:17:52 albuterol sulfate 2.5 mg/3 mL (0.083 %) solution for nebulizati on 2019 020 [facility] #34003, [address], [place], [id number], 0 11:18:15 lisinopril 10 mg tablet 2018 019 INTERFACE [facility], [facility] [address] [place] [address], [address], 9 09:43:31 Patient TargetsNo targets recorded. Patient Instructions Encounter Date Encounter Id Patient Instructions Last Modified By Organization Details Last Modified Time 05/21/2019 [id number] chronic obstructive pulmonary disease (COPD): care instructions [...] healthy weight Not available 05/21/2019 09:35:20 07/27/2019 [id number] sleep apnea: car e instructions Not available 07/27/2019 11:17:34 Quitting Tobacco : Care Instructions Not available 07/27/2019 11:21:06 pulse oximetry* Not available 07/27/2019 11:17:34 chronic obstructive pulmonary disease (COPD): care instructions Not available 07/27/2019 11:17:34 learning about copd and how to prevent lung infections Not available 07/27/2019 11:17:34 08/20/2019 [id number] pulse oximetry* Not availabl e 08/20/2019 11:33:38 sleep apnea: car e instructions Not available 08/20/2019 11:33:38 chronic obstructive pulmonary disease (COPD): care instructions Not available 08/20/2019 11:33:38 learning about copd and how to prevent lung infections Not available 08/20/2019 11:33:38 09/08/2019 [id number] sleep apnea: car e instructions Not available [...] pulse oxime try* Result 93 Not Available [facility] [address] [facility] [address], [place], [address], 07/27/2019 11:08:05 08/20/19 20 08/20/2019 pulse oxime try* Result 94 Not Available [facility] [address] [facility] [address], [place], [address], 08/20/2019 10:59:40 09/08/19 20 09/08/2019 pulse oxime try* Result 96 Not Available [facility] [address] [facility] [address], [place], [address], 09/08/2019 11:01:43 08/19/19 20 08/18/2019 MAMMO , scree meme, bilat eral No observ ation record ed. ab [facility] [address] [place] [address], [place], [address], 08/20/2019 09:16:10 10/04/19 20 09/20/2019 US, carot id arter y No observ ation record ed. [email or web address] Not Available 2019 14:11:42 10/08/19 20 10/07/2019 trans -thor acic echoc ardio gram (TTE) (PROC ) No observ ation record ed. Dieudonne Elliott MD [address] [place] [address] [address], [place], [address], 10/09/2019 12:57:03 08/24/19 21 08/23/2020 MAMMO , scree meme, digit al, bilat eral No observ ation record ed. [email or web address] [facility] [address] [place] [address] [place], [address], 08/24/2020 16:01:15 Result Notes None recorded. Problems Name Problem SNOMED Code Status Onset Date Resolution Date Notes Provider Name and Address Organization Details Recorded Time Chronic obstructive pulmonary disease 34032255 Active 2017 Negra hernandez [facility] 8 08:14:55 Hypercholes terolemia 99301012 Active 2017 Negragume hernandez [facility] 8 08:15:02 Sleep apnea 71124085 Active 2017 Negra hernandez [facility] 8 08:15:11 Diabetes mellitus 24961089 Active 2017 Negragume hernandez [facility] 8 08:15:29 Atrial fibrillatio n 18207658 Active 2019 VARGHESE Ramos [address] [place] [address], [address], [facility] 0 11:10:27 Problem Notes None recorded. Procedures Surgical History Date Name Laterality Status Provider Name and Address Organization Details Recorded Time 0 Most Recent Mammogram completed My Morgan [facility] 08/20/2019 08:37:53 Tubal Ligation completed Negra Patel [facility] 11/04/2018 08:05:20 removal of ectopic fetus completed Negra Swift [facility] 11/04/2018 08:05:46 Imaging Results Imaging Date Name Status LastModified by Organization Details LastModified Time 08/18/2019 MAMMO, screening, bilateral completed [facility] [address] [place] [address], [place], [address], 08/20/2019 09:16:10 09/20/2019 US, carotid artery completed [email or web address] Inform ation not available 10/04/2019 14:11:42 10/07/2019 trans-thoracic echocardiogram (TTE) (PROC) completed Dieudonne Elliott MD [address] [place] [address], [place], [address], 10/09/2019 12:57:03 08/23/2020 MAMMO, screening, digital, bilateral completed [email or web address] [facility] [address] [place] [address] [place], [address], 08/24/2020 16:01:15 Procedure Notes None recorded. Medical [...] Updated DateTime 9 161.29 cm 37.2 kg/m2 31615.6 1 g 81 /min 95 % 95 % 150 mm[Hg] 80 mm[Hg] My Morgan [facility] 9 09:09:08 Date Recorded Systolic blood pressure Diastolic blood pressure Provider Name and Address Organization Details Last Updated DateTime 05/21/2019 150 mm[Hg] 80 mm[Hg] October [address], [address] [place], [facility] 05/21/2019 09:40:09 Date Recorded Body height Body mass index (BMI) Body weight Heart rate Body temperature Oxygen saturation Oxygen saturation in Arterial blood by Pulse oximetry Systolic blood pressure Diastolic blood pressure Provider Name and Address Organization Details Last Updated DateTime 0 161.29 cm 36.3 kg/m2 34651.5 7 g 89 /min 98.5 [degF] 93 % 93 % 150 mm[Hg] 70 mm[Hg] My Morgan [facility] 0 11:06:40 Date Recorded Body height Body mass index (BMI) Body weight Heart rate Oxygen saturation Oxygen saturation in Arterial blood by Pulse oximetry Body temperature Systolic blood pressure Diastolic blood pressure Provider Name and Address Organization Details Last Updated DateTime 0 161.29 cm 36.8 kg/m2 27764.0 7 g 84 /min 94 % 94 % 98.5 [degF] 150 mm[Hg] 62 mm[Hg] My Morgan [facility] 0 11:01:57 Date Recorded Body height Body mass index (BMI) Body weight Heart rate Oxygen saturation Oxygen saturation in Arterial blood by Pulse oximetry Systolic blood pressure Diastolic blood pressure Provider Name and Address Organization Details Last Updated DateTime 0 161.29 cm 36.2 kg/m2 88803.0 6 g 98 /min 96 % 96 % 170 mm[Hg] 60 mm[Hg] [facility] 0 11:03:28 Date Recorded Body height Provider Name an d Address Organization Details Last Updated DateTime 11/19/2019 161.29 cm [facility]ra [facility] 11/19/2019 08:42:53 Social History Question Answer Notes LastModified by Organizat ion Details LastModified Time Tobacco Smoking Status Current Some Day Smoker Not Available [facility] 05/16/2020 03:36:23 What Was The Date Of Your Most Recent Tobacco Screening? 11/04/2018 [id number] Information not available 05/16/2020 Sex: Unknown Functional [...] virus, quadrivalent, preservative 9 completed Cassandra hernandez [facility] 10/20/2019 15:27:31 Influenza, split virus, quadrivalent, preservative 0 completed [facility] 05/08/2020 11:21:48 Past Encounters Encounter ID Performer Location Encounter Start Date Encounter Closed Date Diagnosis/Indication Diagnosis SNOMED-CT Code Diagnosis ICD10 Code Diagnosis Note [id number] Ernestina Murguia NP, S [facility] [address] [place] [address] 05/04/2018 09:30:49 05/04/2018 12:33:51 Hypercholesterolemia 48281571 E78.00 HDL 29- was 37, follow, increase exercise Chronic ob structive pulmonary disease 68495159 J44.9 still smokes 3-6 cigarettes daily Diabetes mellitus 615632 09 E11.9 Encourage return to gym, walk every day, continue with no medication Sleep apnea 08279200 G47 .30 100% compliant with positive benefits Heartburn 86725041 R12 discussed, encouraged 100% smoking cessation, increase exercise to permit weight loss Call if recurs or intensifie s [id number] Ernestina Murguia NP, S [facility] [address] [facility],[place] [address] 11/04/2018 08:52:41 11/04/2018 10:33:48 Adult health examination 139035024 Z00.01 Active or passive immunization 460219701 Z23 Diabetes mellitus 384045 09 E11.9 Chronic ob structive pulmonary disease 77766394 J44.9 still smokes 1-2 cigarettes daily Hypercholesterolemia 136 15557 E78.00 Sleep apnea 85809608 G47 .30 100% compliant with positive benefits Screening procedure 2012 5006 Z13.9 [id number] October VARGHESE Ramos [facility] [address] [facility],[place] [address] 05/21/2019 08:50:59 05/21/2019 09:56:18 Hypercholesterolemia 21572786 E78.00 Diabetes mellitus 066736 09 E11.9 generally noncomplia nt with labs, has never been advised to monitor bs at home Chronic ob structive pulmonary disease 82068877 J44.9 Sleep apnea 29774491 G47 .30 Screening procedure 2012 5006 Z13.9 Body mass index 30+ - obesity 261708880 Z68.37 Essential hypertension 31515807 I10 BP were discordant initially, and pt states that this has been for years, but after my check I obtained the same BP in both arms, it was however elevated [id number] [facility] [address] [facility] [address] [address] 07/27/2019 10:59:07 07/27/2019 11:27:37 Chronic obstructive pulmonary disease 17621438 J44.9 Diabetes mellitus 890300 09 E11.9 Sleep apnea 21610865 G47 .30 typically uses cpap, but needs a new mask considerin g a cpap rope cleaner Acute exac erbation of chronic obstructive pulmonary disease 243715115 J44.1 Tobacco user 697518588 Z 72.0 not smoking lately thinking about quitting [id number] [facility] [address] [facility] [address] [place] [address] 08/20/2019 10:35:47 08/20/2019 11:42:35 Atrial fibrillation 88671598 I48.91 new onset seeing cardio Chronic ob structive pulmonary disease 06210904 J44.9 Diabetes mellitus 123883 09 E11.9 new dx of diabetes last a1c was 7.8 counsellin g provided in depth on diet, exercise, pathology and plan will start with diet and exercise recheck in 3 months Sleep apnea 63874652 G47 .30 typically uses cpap, but needs a new mask considerin g a cpap rope cleaner Acute exac erbation of chronic obstructive pulmonary disease 981673960 J44.1 [id number] [facility] [address] [facility] [place] [address] 09/08/2019 10:25:12 09/08/2019 11:34:47 Atrial fibrillation 35831848 I48.91 new onset seeing cardio xarelto + diltiazem Chronic ob structive pulmonary disease 92461294 J44.9 lungs clear Diabetes mellitus 596751 09 E11.9 continue diet continue metformin Sleep apnea 66140829 G47 .30 using cpap [id number] GLENNA RASMUSSEN [facility] [address] [facility] [address] [address] 11/19/2019 08:30:51 11/19/2019 10:44:36 Atrial fibrillation 93490053 I48.91 stable Chronic ob structive pulmonary disease 41793356 J44.9 stable Diabetes mellitus 110756 09 E11.9 doing more to improve on [...] Guarantor Name 05/21/2019 1 [place] [id number] 2 Phyllis Besner [id number] 353 Phyllis Besner 07/27/2019 1 [place] [id number] 2 Phyllis Besner [id number] 353 Phyllis Besner 08/20/2019 1 [place] [id number] 2 Phyllis Besner [id number] 353 Phyllis Besner 09/08/2019 1 [place] [id number] 2 Phyllis Besner [id number] 353 Phyllis Besner 11/19/2019 1 [place] [id number] 2 Phyllis Besner [id number] 353 Phyllis Besner Notes Date Note Type Note Provider Name a nd Address Organization Details Recorded Time 05/21/2019 text/html needs labs doesn t check bs at home always has wide gap in bp in each arm sleep apnea - may need cpap supplies October VARGHESE Ramos [address] [place] [address], [address], [facility] 05/21/2019 09:44:37 07/27/2019 [...] rashes, or nail changes. VARGHESE Baez [address] [place], [address], [facility] 07/27/2019 11:24:29 08/20/2019 text/html was [...] except where noted above VARGHESE Baez [address] [place], [address], [facility] 08/20/2019 11:35:23 09/08/2019 text/html had [...] generally lower than 200. VARGHESE Baez [address] [place], [address], [facility] 09/08/2019 11:21:15 11/19/2019 text/html TELEMED [...] take it went over with what the statistical consultant discussed with her in terms of the stenosis in her carotid and that it is not at the percentage where it is dangerous goes to work, but only one other person at work and they socially distance from each other no cough, no fever, no chest pain GLENNA RASMUSSEN [address] [facility], [place], [address], [facility] 11/19/2019 10:16:21 OBGyn Episode No OBEpisode recorded.
--- OUTSIDE RECORDS SUMMARY | 2024-09-17 08:06 | XMS_ITS | Clinical Summary ---
Author Organization [facility] it Address [address] [place] [address] Care Team Providers Care Engine Dispatcher Name Role Phone Dinora Monique MD Primary Care Provider [phone] Allergies Active Allergy Reactions Criticality Noted Date Comments Oxycodone Nausea And Vomiting Medium 10/10/2021 Medications atorvastatin (LIPITOR) 80 mg tablet TAKE 1 TABLET BY MOUTH ONCE DAILY 90 tablet 1 08/11/2024 Active aspirin 81 mg EC tablet Take 1 Tablet by mouth daily. Active dilTIAZem XR (DILACOR XR) 120 mg 24 hr capsule Take 1 Capsule by mouth daily. 04/12/2024 Active empagliflozin (Jardiance) 10 mg tablet Take 1 Tablet by mouth daily. Active famotidine (PEPCID) 20 mg tablet Take 1 Tablet by mouth daily. Active fluticasone furoate-vilante roL (BREO ELLIPTA) 100-25 mcg/dose inhaler Inhale 1 Puff into the lungs daily. Active lisinopriL (PRINIVIL,ZESTR IL) 20 mg tablet Take 1 Tablet by mouth daily. Active metFORMIN (GLUCOPHAGE) 1,000 mg tablet Take 1,000 mg by mouth 2 times daily (with meals). Active omeprazole (PriLOSEC) [address] capsule Take 1 Capsule by mouth every morning. Active rivaroxaban (Xarelto) 20 mg tablet TAKE 1 TABLET BY MOUTH DAILY 02/27/2024 Active multivitamin (MULTIPLE VITAMINS ORAL) Take 1 tablet by mouth daily. - Oral Active Active Problems Problem Noted Date Diagnosed Date Coronary artery calcification 08/08/2023 Overview (09/13/2024): Last Assessment & Plan: The patient had evidence of mild to moderate coronary artery calcifications which were noted on the CT scan of the heart that was done prior to the her cardiac ablation. On today's visit, the patient complained of symptoms of exertional dyspnea. As such, ischemic evaluation is indicated. Will order nuclear stress test. Bilateral carotid artery stenosis 02/06/2023 Overview (09/13/2024): Last Assessment & Plan: The patient has a history of bilateral carotid artery stenosis. She is followed by the [facility] vascular surgery service. From a medication standpoint, the patient will continue her current statin therapy with atorvastatin as well as her antithrombotic therapy with Xarelto. Subclavian arterial stenosis 02/06/2023 Overview (09/13/2024): Last Assessment & Plan: The patient has a history of a left subclavian artery occlusion. The patient is followed by the [facility] vascular surgery service. The patient states that she has an appointment with the [facility] vascular surgery service in the next month. Dyspnea 12/05/2022 Overview (09/13/2024): Last Assessment & Plan: The patient has been noticing symptoms of exertional dyspnea. She thinks her symptoms are secondary to her underlying COPD given her chronic smoking. Given that her symptoms could certainly be secondary to her COPD, we also need to consider the possibility of ischemic heart disease as a cause of the patient's exertional symptoms given the patient's significant risk factors for developing coronary artery disease. As such, we will pursue further testing with a nuclear stress test. 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 She continues to smoke cigarettes every day. During today's visit, we had extensive conversation regarding the risk associated with continued smoking. Specifically, I warned her about the risk of developing coronary artery disease, worsening of her vascular disease, having an CA, and having a CVA. I also explained that these risks are present despite the use of her medication regimen. After the conversation, the patient stated that she is still not ready to quit smoking. However, she will think about this possibility. Atrial fibrillation 03/27/2021 Overview (09/13/2024): Last Assessment & Plan: Patient has a history of paroxysmal atrial fibrillation. She underwent an ablation in August 2021. Post ablation monitor done in December 2022 did not reveal any A-fib. It did reveal brief runs of atrial tachycardia. On today's visit, the patient states that she has very infrequent episodes of palpitations that only last for 1 to 2 minutes per episode. She has metoprolol to be used as needed but the patient states that she has not needed to use the metoprolol. As such, at this point, given the low frequency of her symptoms, we will continue her current medication regimen. On the other hand, the patient has a [id number] score of 4 (gender, hypertension, diabetes, vascular disease). Therefore, she will continue her current therapy with Xarelto. The patient denies any abnormal bleeding. COPD (chronic obstructive pulmonary disease) DM (diabetes mellitus) 03/27/2021 Hyperlipidemia 03/27/2021 Overview (09/13/2024): Last Assessment & Plan: The patient has a history of hyperlipidemia. The patient is currently on atorvastatin 80 mg orally daily. We will order a new lipid panel to evaluate the patient's current lipid control and determine if any adjustment are needed in the lipid lowering therapy. Hypertension 03/27/2021 Overview (09/13/2024): Last Assessment & Plan: The patient has a history of arterial hypertension. The patient's blood pressure today was noted to be well controlled. We'll continue the current antihypertensive medication regimen. Medical History Medical History Date Comments Diabetes mellitus ([facility]) DX:D iabetes mellitus ([facility]) COPD (chronic obstructive pu lmonary disease) (CMS/HCC) DX:COPD (chronic obstructive pulmonary disease) ([facility]) Social History Tobacco Use Types Packs/Day Years Used Date Smoking Tobacco: Every Day Cigarettes Smokeless Tobacco: Never Alcohol Use Standard Drinks/Week Comments Yes 0 (1 standard drink = 0.6 oz pur e alcohol) Comments Unknown Sex and Gender Information Value Date Recorded Sex Assigned at Not on file Legal Sex Female 11:16 AM EST Gender Identity Not on file Sexual Orientation Not on file Obstetrics History Last Filed Vital Signs Vital Sign Reading Time Taken Comments Blood Pressure 130/60 03/23/2024 3:02 PM EDT Pulse 83 03/23/2024 3:02 PM EDT Temperature - - Respiratory Rate - - Oxygen Saturation - - Inhaled Oxygen Concentration - - Weight 73.9 kg (163 lb) 03/23/2024 3:02 PM EDT Height 162.6 cm (5' 4 ) 03/23/2024 3:02 PM EDT Body Mass Index 27.98 03/23/2024 3:02 PM EDT Plan of Treatment Upcoming Encounters Date Type Department Care Team (Late st Contact Info) Description 11/18/2024 10:40 AM EDT Office Visit [facility] [address] [facility] [address] [place] [address] Tiffanie Islas PA [address] [place] [address] Health Maintenance Due Date Last Done Comments Breast Cancer Screening 1961 Diabetes: Annual GFR (Glomerular Filtration Rate) 1961 Diabetes: Annual Foot Exam 1971 Diabetes: Annual Retina Eye Exam 1971 DTaP,Tdap,and Td Vaccines (1 - Tdap) 1980 Pneumococcal Vaccine: 50+ Years (1 of 2 - PCV) 1980 Pneumococcal Vaccine: Pediatrics (0 to 5 Years) and At-Risk Patients (6 to 64 Years) (1 of 2 - PCV) 1980 Cervical Cancer Screening: P ap Smear 1982 Zoster Vaccines (1 of 2) 2011 RSV Immunization Patients 60 + Years Old (1 - Risk 60-74 years 1-dose series) 2021 Cholesterol Screening (Lipid Panel) 06/11/2022 Colorectal Cancer Screening: Colonoscopy 06/11/2022 Depression Screening 06/11/2022 HIV Screening 06/11/2022 Hepatitis C Screening 06/11/2022 Social Influencers of Health Screening 06/11/2022 Hypertension/CHF/CAD Annual BMP Blood Test 06/23/2022 Diabetes: Annual Urine Albumin-Creatinine Ratio (uACR) 06/27/2022 Diabetes: Blood Sugar Contro l Test (HGBA1C) 06/27/2022 COVID-19 Vaccine (2023-2 5 season) 2024 09/27/2020, 09/05/2020 Influenza Vaccine (#1) 2024 HIB Vaccines Aged Out No longer eligi ble based on patient's age to complete this topic HPV Vaccines Aged Out No longer eligi ble based on patient's age to complete this topic Hepatitis A Vaccines Aged Out No long er eligible based on patient's age to complete this topic Hepatitis B Vaccines Aged Out No long er eligible based on patient's age to complete this topic IPV Vaccines Aged Out No longer eligi ble based on patient's age to complete this topic MMR Vaccines Aged Out No longer eligi ble based on patient's age to complete this topic Meningococcal ACWY Vaccine Aged Out N o longer eligible based on patient's age to complete this topic Meningococcal B Vacine Aged Out No lo nger eligible based on patient's age to complete this topic RSV Immunization Patients Under 20 months Aged Out No longer eligible b ased on patient's age to complete this topic Varicella Vaccines Aged Out No longer eligible based on patient's age to complete this topic Care Teams Engine Dispatcher Relationship Specialty Start Date End Date Dinora Monique MD PCP - General Internal Medicine 05/24/21
--- OUTSIDE RECORDS SUMMARY | 2024-09-17 08:06 | XMS_ITS | Patient Health Record ---
Author Organization [facility] [place] Address [address] [place] [address] Care Team Providers Care Real Estate Financial Analyst Name Role Phone Dinora Monique MD Primary Care Provider Unavailtio Tiffanie Chew Unavailable [phone] Allergies No Known Allergies Reason For Referral No Information Medications Medication SIG (Take, Route, Frequency, Duration) Notes Start Date End Date Status Xarelto 20 MG 1 tablet with food O rally Once a day for 30 day(s) Active Atorvastatin Calcium 40 MG 1 tablet Oral ly Once a day for 30 day(s) Active Breo Ellipta 100-25 MCG/INH 1 puff Inhal ation Once a day Active Lisinopril 10 MG 1 tablet Orally Once a day for 30 day(s) Active dilTIAZem HCl ER Beads 240 MG 1 capsule Orally Once a day for 30 day(s) Active Metoprolol Succinate 50 MG 1 capsule Ora lly Once a day for 30 day(s) Active Multivitamin Active Immunizations Vaccine Route Administration Date Status Comme nts COVID-19 Pfizer BioNTech Vaccine Unknown 05/21/2021 Administered 1st dose: 09/05/2020 2nd dose: 09/27/2020 COVID-19 Pfizer BioNTech Vaccine Unknown 05/21/2021 Administered 1st vaccine 08/16/20 2nd 09/27/20 Influenza Unknown 04/13/2021 Administered Social History Tobacco Use: Social History Observation Description Date Details (start date - stop date) Current Smoker 07/14/1978 - NA Tobacco Use/Smoking Question Answer Notes Are you a: current smoker When did you start smoking? 07/14/1978 How many cigarettes a day do you smoke? 11-20 Additional Findings: Tobacco User Modera te cigarette smoker (10-19 cigs/day) Alcohol Screen Question Answer Notes Did you have a drink contain ing alcohol in the past year? Yes How often did you have a dri nk containing alcohol in the past year? 2 to 3 times a week (3 points) Points 3 Interpretation Positive Tobacco use other than smoking: Question Answer Notes Are you an other tobacco user? No Problems Problem Type SNOMED Code ICD Code Onset Dates Problem Status W/U Status Risk Notes Problem Acquired hammer toe of right foot (193106067144079 5) Other hammer toe(s) (acquired), right foot (M20.41) Active confirmed Problem Acquired hammer toe of left foot (223651403020825 3) Other hammer toe(s) (acquired), left foot (M20.42) Active confirmed Problem Type II diabetes mellitus without complication (801425450) Type 2 diabetes mellitus without complications (E11.9) Active confirmed Plan Of Treatment No Information Insurance Providers Payer Name Payer Address Payer Phone Subscriber Number Group Number Insured Name Patient Relationship to Insured Coverage Start Date Coverage End Date Benjamin [facility] [address] [place] [address] [id number] Phyllis Coreas Self - patient is the insured Medical (General) History Medical History History ICD Code type II diabetes Heart disease High blood pressure Chicken pox Surgical History Surgery Date(Month/Year) bunionectomy ankle surgery ovarian removal surgery 1979 tubal surgery for 1991
[2024-09-17 10:01] LABS: MANUAL DIFF FLAG NO
[2024-09-17 10:20] LABS: Basophils Absolute Auto 0.1 X10*3/uL (0.0-0.2); Basophils Percent Auto 0.5 % (0-2); Eosinophils Absolute Auto 0.2 X10*3/uL (0.0-0.4); Eosinophils Percent Auto 2.1 % (0-4); Hematocrit 47.2 % (37.0-47.0); Hemoglobin 14.7 g/dl (12.0-16.0); Imm Gran Abs Auto 0.02 X10*3/uL (0.00-0.03); Imm Gran Pct Auto 0.2 % (0.0-0.4); Lymphocytes Absolute Auto 3.4 X10*3/uL (1.2-4.9); Lymphocytes Percent Auto 34.9 % (20-40); Mean Corpuscular HGB Conc 31.1 g/dl (31.0-35.0); Mean Corpuscular Hemoglobin 28.7 pg (27.0-33.0); Mean Corpuscular Volume 92.2 fL (80.0-98.0); Mean Platelet Volume 12.5 fL (9.4-12.3); Monocytes Absolute Auto 0.9 X10*3/uL (0.1-1.2); Monocytes Percent Auto 9.5 % (2-11); Neutrophils Absolute Auto 5.1 x10*3/uL (2.0-8.3); Neutrophils Percent Auto 52.8 % (45-73); Platelet Count 325 X10*3/uL (160-400); Red Blood Count 5.12 X10*6/uL (4.20-5.50); Red Cell Distribution Width 14.3 % (11.0-16.0); White Blood Count 9.7 X10*3/uL (4.8-10.8)
[2024-09-17 10:26] LABS: Estimated Average Glucose 123 mg/dL; Hemoglobin A1C 156.6655 umol/L; Hemoglobin A1c % 5.9 % (<6.0); Total Hemoglobin (HGBA1C) 3843.1725 umol/L
[2024-09-17 10:49] LABS: Alanine Aminotransferase 26 U/L (0-31); Albumin Level 4.4 g/dL (3.5-5.0); Alkaline Phosphatase 70 U/L (39-117); Anion Gap 12 (12-20); Aspartate Amino Transferase 34 U/L (5-31); Bilirubin Total 0.4 mg/dL (0.0-1.0); Blood Urea Nitrogen 23 mg/dL (9-16); Calcium 9.9 mg/dL (8.4-10.2); Carbon Dioxide 30 mmol/L (22-29); Chloride 101 mmol/L (96-108); Cholesterol 137 mg/dL (<200); Estimated Glomerular Filt Rate > 60; Glucose Fasting 108 mg/dL (60-99); HDL Cholesterol 41 mg/dL (>40); LDL Cholesterol Calculated 68 mg/dL (<100); Potassium 4.7 mmol/L (3.3-5.1); Sodium 138 mmol/L (135-145); TSH reflex Free T4 1.78 uIU/mL (0.32-4.0); Triglycerides 143 mg/dL (<150)
[2024-09-17 11:08] LABS: Creatinine Urine 44.77 mg/dL; Microalbum/Creatinine Ratio Ur 26.8 ug/mg cr (<30)
== END 2024-09-17 08:04 | disposition home or self-care (01) ==
LOC: HO.HMGCX 08:03
PROVIDERS: PCP Internal Medicine; Visit Provider Internal Medicine
DX: Z00.01 Encounter for general adult medical examination with abnormal findings (principal); M25.511 Pain in right shoulder; E78.5 Hyperlipidemia, unspecified; I10 Essential (primary) hypertension; I48.91 Unspecified atrial fibrillation; E11.9 Type 2 diabetes mellitus without complications
CPT/HCPCS: 36415; 73030; 80053; 80061; 82043; 82570; 83036; 84443; 85025; 96127; 99212; 99396

== ENCOUNTER 2024-09-17 08:20 | Outpatient (AMB) | payer OTHER, SELFPAY ==
[2024-09-17 08:23] VITALS: BP 106/64; PULSE 102; TEMP 36.6; O2SAT 97; BMI 26.1
--- NOTE | 2024-09-17 08:23 | MHC.PC.OV ---
Vital Signs 09/17/24 08:23 Height 5 ft 4 in Weight 152 lb BMI 26.1 BP 106/64 Blood Pressure Location Rt brachial Position Sitting Pulse 102 H Pulse Source Pulse Oximeter Temp 97.9 F Temp Source Oral Pulse Oximetry (%) 97 Oxygen Delivery Method Room Air Intake Visit Reasons: Annual PE Intake Note: Pt is here today for PE. Allergies No Known Allergies Allergy (Verified 09/17/24 08:25) Medication List - Last Reconciled 09/17/24 by Dinora Monique MD albuterol sulfate 90 mcg/actuation 2 puffs inhalation QID PRN aspirin 81 mg PO DAILY atorvastatin 80 mg PO DAILY blood sugar diagnostic As directed CPAP (CPAP Machine/Device) As directed diltiazem HCl 120 mg PO DAILY empagliflozin (Jardiance) 25 mg PO DAILY famotidine (Pepcid) 40 mg PO BEDTIME 30 days fluticasone furoate-vilanterol 100-25 mcg/dose (Breo Ellipta) 1 inh PO DAILY ipratropium-albuterol 0.5 mg-3 mg(2.5 mg base)/3 mL 3 mL inhalation Q4-6H PRN lancets As directed lisinopril 40 mg PO DAILY metformin 1,000 mg PO BID multivitamin 1 tab PO DAILY omeprazole 20 mg PO QAM rivaroxaban (Xarelto) 20 mg PO DAILY Tobacco use date assessed: 09/17/24 Dental Screening Dental Screen Date: 09/17/24 Did you have a dental visit in the last 12 months?: Yes Did you have a dental problem in the last 6 months where you did not have access to dental care?: No Was dental information given to patient?: Patient has dentist HPI Annual PE HPI Details Pt presents for PE. Pt c/o R shoulder pain for 2 months. Pain when lying on the right side. PFSH Medical History GERD (gastroesophageal reflux disease) Abdominal pain LORETTA (obstructive sleep apnea) Normal colonoscopy Mammogram normal Normal Pap smear Smoker COPD (chronic obstructive pulmonary disease) Hyperlipidemia HTN (hypertension) A-fib DM type 2 (diabetes mellitus, type 2) Ectopic Surgical History Hx of endoscopy H/O colonoscopy History of cardiac radiofrequency ablation (RFA) H/O unilateral salpingectomy Hx of removal of ovary History of ankle surgery Family History Father Hypertension Diabetes Mother Hypertension Diabetes Heart attack History of open heart surgery Breast cancer Social History Household 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:: , 3 children, 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 1. Little interest or pleasure in doing things: not at all 2. Feeling down, depressed, or hopeless: not at all 3. Trouble falling or staying asleep, or sleeping too much: not at all 4. Feeling tired or having little energy: not at all 5. Poor appetite or overeating: not at all 6. Feeling bad about yourself - or that you are a failure or have let yourself or your family down: not at all 7. Trouble concentrating on things, such as reading the newspaper or watching television: not at all 8. Moving or speaking so slowly that other people could have noticed. Or the opposite - being so fidgety or restless that you have been moving around a lot more than usual: not at all 9. Thoughts that you would be better off or of hurting yourself in some way: not at all Total score: 0 Depression Screening Interpretation: Negative Depression Screening Done: Yes 40835 - PHQ-9 Billing: Yes Source: Developed by Drs. Marcio Zamorano, Hollie Pinon, Louis Renae and colleagues, with an educational darvin from [employer]. Thrive Questionnaire Date Thrive assessed: 09/17/24 I am a: Patient What is your living situation today?: I have a steady place to live Within the past 12 months, did the food you bought not last and you didn't have the money to get more?: Never true Within the past 12 months, did you worry whether your food would run out before you got money to buy more?: Never true Do you have trouble paying for medicines?: No Do you have trouble getting transportation to medical appointments?: No Do you have trouble paying your heating and electricity bill?: No Do you have trouble taking care of your child, family member or friend?: No Do you have trouble with day-to-day activities such as bathing, preparing meals, shopping, managing finances, etc.?: No Are you currently unemployed and looking for a job?: No Are you interested in more education?: No Please select the resources that you would like help with: None Currently or been in a relationship where the following occur: No concerns reported THRIVE Score: 0 AUDIT C Alcohol Use Questionnaire (AUDIT-C) 1. How often do you have a drink containing alcohol?: Monthly or less 2. How many drinks containing alcohol do you have on a typical day when you are drinking?: 1 or 2 3. How often do you have six or more drinks on one occasion?: Never Total Score: 1 LORNA-7 AMB Questionnaire LORNA-7 Date LORNA - 7 assessed: 09/17/24 Feeling nervous, anxious, or on edge: 0 = Not at all Not being able to stop or control worryin = Not at all Worrying too much about different things: 0 = Not at all Trouble relaxin = Not at all Being so restless that it is hard to sit still: 0 = Not at all Becoming easily annoyed or irritable: 0 = Not at all Feeling afraid as if something awful might happen: 0 = Not at all Total LORNA-7 score (0-4 normal; 5-9 mild; 10-14 moderate; 15-21 severe): 0 Source: Developed by Drs. Marcio Zamorano, Hollie Pinon, Louis Renae and colleagues, with an educational darvin from [employer]. LORNA-7 Assessment Billing LORNA-7 Assessment Tool: LORNA-7 Assessment 99469 Review of Systems Const All systems reviewed & are unremarkable except as noted in HPI and below Reports no additional complaints Eyes Reports no additional complaints ENT Reports no additional complaints Card Reports no additional complaints Resp Reports no additional complaints GI Reports no additional complaints Reports no additional complaints Physical exam (Primary Care) Vital Signs: Last Vital Signs Temp 97.9 F 09/17/24 08:23 Pulse 102 H 09/17/24 08:23 BP 106/64 09/17/24 08:23 Pulse Ox 97 09/17/24 08:23 Oxygen Delivery Method Room Air 09/17/24 08:23 BMI result Body Mass Index 26.1 Tobacco/Smoking Status: Tobacco use Status Tobacco use date assessed 09/17/24 09/17/24 08:25 Patient Tobacco Use Status Current everyday Tobacco 09/17/24 08:25 Tobacco use type Cigarette 09/17/24 08:25 e-Cigarette/Vaping Use Never Used 09/17/24 08:25 PHQ-9: PHQ-9 Score PHQ-9: Total score 0 09/17/24 08:43 Depression Screening Interpretation: Negative Thrive Assessment: Date of Thrive Assessment Date Thrive assessed 09/17/24 09/17/24 08:30 Currently or been in a relationship where the following occur: No concerns reported Const General: no acute distress HENMT Head: Yes normal to inspection Ears: TM's normal bilaterally General nose exam: Normal external nose present Face and sinus: Yes normal facial exam Mouth: Normal oral and palatal mucosa present Eyes General: appearance normal, both eyes and all related structures Neck Neck: Yes no lymphadenopathy and Yes supple Resp Effort & Inspection: normal respiratory effort Auscultation: clear to auscultation bilaterally Cardio Rhythm: regular rhythm Heart sounds: S1 normal heart sound present and S2 normal heart sound present GI Inspection: Yes normal to inspection Palpation (GI): Soft to palpation Percussion: Yes normal to percussion Auscultation: normal bowel sounds Extrem Other: Decreased range of motion of the right shoulder anterior lateral aspect tenderness no soft tissue swelling erythema or warmth Coding Level of Care Code Est Pt Prev Care 40-64y(93049) Diagnoses DM type 2 (diabetes mellitus, type 2) E11.9 A-fib I48.91 HTN (hypertension) I10 COPD (chronic obstructive pulmonary disease) J44.9 Shoulder pain, right M25.511 Additional Codes LORNA-7 Assessment Billing - LORNA-7 Assessment Tool: LORNA-7 Assessment 02244 ([id number]) PHQ-9 - 69219 - PHQ-9 Billing: Yes ([id number]) Assessment & Plan Assessment & Plan (1) DM type 2 (diabetes mellitus, type 2): Code(s): E11.9 - Type 2 diabetes mellitus without complications Category: Medical Plan: Continue current medications, ADA diet, A1c was 5.9 2 months ago (2) A-fib: Comment: [place] , status post catheter ablation 2021, f/u Q 6 months, nl Echo Code(s): I48.91 - Unspecified atrial fibrillation Category: Medical Plan: Rate controlled on diltiazem and anticoagulated on Xarelto follow-up with Cardiology (3) HTN (hypertension): Code(s): I10 - Essential (primary) hypertension Category: Medical Plan: Continue current medications (4) COPD (chronic obstructive pulmonary disease): Code(s): J44.9 - Chronic obstructive pulmonary disease, unspecified Category: Medical Plan: Continue Breo (5) Shoulder pain, right: Code(s): M25.511 - Pain in right shoulder Category: Medical Plan: Check x-ray and refer for physical therapy Orders: Orders XR shoulder RT min 2V Today M25.511 - Pain in right shoulder Hemoglobin A1c 6 Months E11.9 - Type 2 diabetes mellitus without complications, I10 - Essential (primary) hypertension, I48.91 - Unspecified atrial fibrillation Comprehensive [place]. Panel Fast 6 Months E11.9 - Type 2 diabetes mellitus without complications, I10 - Essential (primary) hypertension, I48.91 - Unspecified atrial fibrillation Complete Blood Count Auto Diff 6 Months E11.9 - Type 2 diabetes mellitus without complications, I10 - Essential (primary) hypertension, I48.91 - Unspecified atrial fibrillation Lipid Panel 6 Months E11.9 - Type 2 diabetes mellitus without complications, I10 - Essential (primary) hypertension, I48.91 - Unspecified atrial fibrillation Microalbumin, Random (w Creat) 6 Months E11.9 - Type 2 diabetes mellitus without complications, I10 - Essential (primary) hypertension, I48.91 - Unspecified atrial fibrillation PT Evaluation and Treatment Today M25.511 - Pain in right shoulder Medications: New OneTouch Ultra Test (blood sugar diagnostic) As directed 100 ea 3RF NS blood-glucose meter (OneTouch Ultra2 Meter) As directed 1 ea 0RF Refilled metformin 1,000 mg PO BID 180 tabs 3RF
--- OUTSIDE RECORDS SUMMARY | 2024-09-17 08:45 | XMS_ITS | Clinical Summary ---
Author Organization [facility] it Address [address] [place] [address] Care Team Providers Care Irrigation Service Technician Name Role Phone Dinora Monique MD Primary Care Provider [phone] Allergies Active Allergy Reactions Criticality Noted Date [...] artery stenosis. She is followed by the [facility] vascular surgery service. From a medication standpoint, the patient will continue her current statin therapy with atorvastatin as well as her antithrombotic therapy with Xarelto. Subclavian arterial stenosis 02/06/2023 Overview (09/13/2024): Last Assessment & Plan: The patient has a history of a left subclavian artery occlusion. The patient is followed by the [facility] vascular surgery service. The patient states that she has an appointment with the [facility] vascular surgery service in the next month. [...] worsening of her vascular disease, having an OR, and having a CVA. I also explained [...] the other hand, the patient has a [id number] score of 4 (gender, hypertension, diabetes, vascular [...] History Medical History Date Comments Diabetes mellitus ([facility]) DX:D iabetes mellitus ([facility]) COPD (chronic obstructive pu lmonary disease) (CMS/HCC) DX:COPD (chronic obstructive pulmonary disease) ([facility]) Social History Tobacco Use Types Packs/Day Years [...] Description 11/18/2024 10:40 AM EDT Office Visit [facility] - [facility] [address] [facility] [address] [place] [address] Tiffanie Islas PA [address] [place] [address] Health Maintenance Due Date Last Done Comments [...] age to complete this topic Care Teams Irrigation Service Technician Relationship Specialty Start Date End Date Dinora Monique MD PCP - General Internal Medicine 05/24/21
== END 2024-09-17 15:10 | disposition home or self-care (01) ==
PROVIDERS: PCP Internal Medicine; Visit Provider Internal Medicine
DX: Z00.00 Encounter for general adult medical examination without abnormal findings (principal); M25.511 Pain in right shoulder; E11.9 Type 2 diabetes mellitus without complications; I48.91 Unspecified atrial fibrillation; J44.9 Chronic obstructive pulmonary disease, unspecified; I10 Essential (primary) hypertension

== ENCOUNTER → 2024-09-17 09:01 | Outpatient (BNV) | payer OTHER, SELFPAY | PROVIDERS: PCP Internal Medicine; Visit Provider Radiology Diagnostic Radiology | DX: M25.511 Pain in right shoulder (principal); M19.011 Primary osteoarthritis, right shoulder | CPT/HCPCS: 73030 ==

== ENCOUNTER 2024-10-06 09:25 | Outpatient (AMB) | payer OTHER, SELFPAY ==
[2024-10-06 09:27] VITALS: BP 120/68; BMI 26.5
--- NOTE | 2024-10-06 09:27 | MHC.OFFVIS ---
Vital Signs 10/06/24 09:27 Height 5 ft 4 in Weight 154 lb 5.177 oz BMI 26.5 BP 120/68 Blood Pressure Location Rt brachial Position Sitting Intake Visit Reasons: 8 months follow up Intake Note: Phyllis presents in follow up of erosive esophagitis. CC: Patient reports doing well and denies having any new GI symptoms or concerns. Product Manager Financial Services Required: No Accompanied by: Self / Same As Patient Allergies No Known Allergies Allergy (Verified 09/17/24 08:25) HPI HPI 8 months follow up: Details: Assessment & Plan (1) Erosive esophagitis: Code(s): K22.10 - Ulcer of esophagus without bleeding Category: Medical (2) Tubular adenoma of colon: Comment: 2023 SCOPE= SESSILE SERRATED, REPEAT IN 5 YEARS Code(s): D12.6 - Benign neoplasm of colon, unspecified Category: Medical Plan The colonoscopy needs to be repeated in 5 years due to the finding of a sessile serrated polyp. The procedure was well tolerated. The results were explained and the patient is agreeable to the follow-up interval as stated. The bowel pattern has returned to normal. Education was provided to tell any 1st degree relatives about their findings to be sure that they are screened by age 45. Educated that they will be put on a recall list when it is time for their repeat scope but should they move out of state or away from the hospital they will need to remember along with their primary to repeat the procedure in a timely fashion to avoid any adverse complications. She does not feel HB but since she is compliant with the famotidine qhs adn still has active esphagitis will add omeprazole 20mg qam. Biopsy did not show Crystal's mucosa despite the Schatzki's ring. ROV 6 mos. Medications: New omeprazole 20 mg PO QAM 30 caps 6RF 30 days K22.10 - Ulcer of esophagus without bleeding Refilled famotidine (Pepcid) 40 mg PO BEDTIME 90 tabs 3RF 30 days R10.13 - Epigastric pain TODAY'S VISIT She is doing well! Her PCP took her off of the famotidine and she is only taking omeprazole and she is experiencing less HB with this therapy . ROV 1 year [facility] Medical History (Updated 10/06/24 @ 09:34 by KAM Powell) Vaginal yeast infection Carotid artery disease Mammogram normal Normal Pap smear Normal colonoscopy Epigastric pain Abdominal pain Pre-op examination GERD (gastroesophageal reflux disease) LORETTA (obstructive sleep apnea) Smoker COPD (chronic obstructive pulmonary disease) Hyperlipidemia HTN (hypertension) A-fib DM type 2 (diabetes mellitus, type 2) Ectopic Surgical History (Reviewed 10/06/24 @ 09:33 by Kory Edwards [facility]) Hx of endoscopy H/O colonoscopy History of cardiac radiofrequency ablation (RFA) H/O unilateral salpingectomy Hx of removal of ovary History of ankle surgery Family History Father Hypertension Diabetes Mother Hypertension Diabetes Heart attack History of open heart surgery Breast cancer Social History Household 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:: , 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, 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, 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 intake: current Alcohol intake frequency: holidays/special occasions only Patient Tobacco Use Status: Current everyday Tobacco user Tobacco use type: Cigarette Cigarette Packs Per Day: 0.25 Cigarettes Per Day: 10 Years Smoked: 30 e-Cigarette/Vaping Use: Never Used service: No Current occupational status: employed Current occupation: [employer] Current occupational exposures/hazards: No Cognitive needs: No Hearing needs: No Vision needs: Yes Review of Systems Const Denies fatigue, Denies fever(s), Denies night sweats, Denies poor appetite and Denies weight loss Eyes Details: glasses Reports requires corrective lenses ENT Reports Normal hearing present, Denies dental pain, Denies dysphagia, Denies hearing loss, Denies mouth pain, Denies odynophagia, Denies throat swelling, Denies tongue swelling and Reports other (Dentition adequate) Card Reports no additional complaints Resp Reports no additional complaints GI Details: Denies abdominal pain, Denies melena, Denies bloating, Denies hematochezia, Reports constipation, Denies GI cramping, Denies dysphagia, Denies excessive flatus, Denies early satiety, Reports heartburn, Denies diarrhea, Denies nausea, Denies odynophagia, Denies vomiting and Denies hematemesis Skin/Breast Denies pruritus, Denies lesions, Denies rash and Denies jaundice Neuro Reports Normal hearing present and Denies Abnormal speech present Endo Denies fatigue Aller/Immun Denies throat swelling and Denies tongue swelling Physical Exam Vital Signs: Last Vital Signs BP 120/68 10/06/24 09:27 BMI result Body Mass Index 26.5 Const General: cooperative, no acute distress, well developed and well groomed Nutritional Appearance: average body habitus and well nourished Orientation/consciousness: oriented to person, oriented to place and oriented to time Limitations: No language barrier HEENT Head: Yes normocephalic and Yes atraumatic Eyes General: appearance normal, both eyes and all related structures Pupils: Equal, round and reactive pupils present Neck Neck: Yes normal visual inspection and Yes no lymphadenopathy Thyroid: Thyroid normal Resp Effort & Inspection: normal respiratory effort and able to speak in complete sentences Auscultation: clear to auscultation bilaterally Cardio Rate: regular rate Rhythm: regular rhythm Heart sounds: Normal, physiologic split S2 sound present Peripheral pulses: radial pulses present and posterior tibial pulses present GI Inspection: No distended, No Abdominal panniculus present and Yes obesity Palpation (GI): Soft to palpation, nontender, no guarding, not rigid and No hepatosplenomegaly present Percussion: Yes normal to percussion Auscultation: normal bowel sounds Rectal Exam - Female: deferred Skin General skin exam: no rashes or lesions noted, turgor normal, skin not dry, no jaundice, No spider nevi and no striae Rashes: no rashes Nails: normal Neuro General: oriented to person, oriented to place and oriented to time Cranial nerves: Yes Equal, round and reactive pupils present and Yes Normal hearing present Speech: No Abnormal speech present Extrem General: Yes normal to inspection, No clubbing, No cyanosis and No edema Psych Appearance: grossly normal and well kempt Mental Status: mental status grossly normal Speech and movement: Normal speech and movement present Affect: normal affect Attitude: cooperative Thought process: Normal thought process present and not confabulating Thought content: Normal thought content present Insight: Good insight present (Psych) Judgement: Good judgement present (Psych) Assessment & Plan Assessment & Plan (1) Erosive esophagitis: Code(s): K22.10 - Ulcer of esophagus without bleeding Category: Medical (2) Tubular adenoma of colon: Comment: 2023 SCOPE= SESSILE SERRATED, REPEAT IN 5 YEARS Code(s): D12.6 - Benign neoplasm of colon, unspecified Category: Medical (3) Constipation: Code(s): K59.00 - Constipation, unspecified Category: Medical (4) Irritable bowel syndrome with both constipation and diarrhea: Code(s): K58.2 - Mixed irritable bowel syndrome Category: Medical Plan She is doing well! Her PCP took her off of the famotidine and she is only taking omeprazole and she is experiencing less HB with this therapy . ROV 1 year Coding Level of Care Code Est Pt Level 3 (30405) Diagnoses Erosive esophagitis K22.10 Tubular adenoma of colon D12.6 Constipation K59.00 Irritable bowel syndrome with both constipation and diarrhea K58.2
--- OUTSIDE RECORDS SUMMARY | 2024-10-06 10:33 | XMS_ITS | Clinical Summary ---
Author Organization [facility] it Address [address] [place] [address] Care Team Providers Care Author'S Agent Name Role Phone Dinora Monique MD Primary Care Provider [phone] Allergies Active Allergy Reactions Criticality Noted Date [...] artery stenosis. She is followed by the [facility] vascular surgery service. From a medication standpoint, the patient will continue her current statin therapy with atorvastatin as well as her antithrombotic therapy with Xarelto. Subclavian arterial stenosis 02/06/2023 Overview (09/13/2024): Last Assessment & Plan: The patient has a history of a left subclavian artery occlusion. The patient is followed by the [facility] vascular surgery service. The patient states that she has an appointment with the [facility] vascular surgery service in the next [...] worsening of her vascular disease, having an [place], and having a CVA. I also explained [...] the other hand, the patient has a [id number] score of 4 (gender, hypertension, diabetes, vascular [...] History Medical History Date Comments Diabetes mellitus ([facility]) DX:D iabetes mellitus ([facility]) COPD (chronic obstructive pu lmonary disease) (CMS/HCC) DX:COPD (chronic obstructive pulmonary disease) ([facility]) Social History Tobacco Use Types Packs/Day Years [...] Description 11/18/2024 10:40 AM EDT Office Visit [facility] - [facility] [address] [facility] [address] [place] [address] Tiffanie Islas PA [address] [place] [address] Health Maintenance Due Date Last Done Comments [...] on patient's age to complete this topic Insurance [facility] [employer] BELIA JUAREZ [id number] Care Teams Author'S Agent Relationship Specialty Start Date End Date Dinora Monique MD PCP - General Internal Medicine 05/24/21
--- OUTSIDE RECORDS SUMMARY | 2024-10-06 10:33 | XMS_ITS | Patient Health Record ---
Author Organization [facility] [place] Address [address] [place] [address] Care Team Providers Care Helicopter Mechanic Name Role Phone Dinora Monique MD Primary Care Provider Unavailtio Tiffanie Chew Unavailable [phone] Allergies No Known Allergies Reason For Referral [...] Problem Acquired hammer toe of right foot ([id number] 5) Other hammer toe(s) (acquired), right foot (M20.41) Active confirmed Problem Acquired hammer toe of left foot ([id number] 3) Other hammer toe(s) (acquired), left foot (M20.42) Active confirmed Problem Type II diabetes mellitus without complication (296799035) Type 2 diabetes mellitus without complications (E11.9) Active confirmed Plan Of Treatment No Information Insurance Providers Payer Name Payer Address Payer Phone Subscriber Number Group Number Insured Name Patient Relationship to Insured Coverage Start Date Coverage End Date [facility] [address] [place] [address] [id number] Phyllis Coreas Self - patient is the insured Medical (General) History Medical History History ICD Code type II diabetes Heart disease High blood pressure Chicken pox Surgical History Surgery Date(Month/Year) bunionectomy ankle surgery ovarian removal surgery 1979 tubal surgery for 1991
== END 2024-10-06 09:53 | disposition home or self-care (01) ==
LOC: HO.HGI 09:25
PROVIDERS: PCP Internal Medicine; Visit Provider Nurse Practitioner
DX: K22.10 Ulcer of esophagus without bleeding (principal); D12.6 Benign neoplasm of colon, unspecified; K59.00 Constipation, unspecified; K58.2 Mixed irritable bowel syndrome
CPT/HCPCS: 99213

== ENCOUNTER → 2024-10-06 09:25 | Outpatient (BNVA) | payer OTHER, SELFPAY | PROVIDERS: PCP Internal Medicine; Visit Provider Nurse Practitioner | DX: K22.10 Ulcer of esophagus without bleeding (principal); D12.6 Benign neoplasm of colon, unspecified; K59.00 Constipation, unspecified; K58.2 Mixed irritable bowel syndrome | CPT/HCPCS: 99212 ==

== ENCOUNTER 2024-10-26 09:00 | Outpatient (RCR) | payer OTHER, SELFPAY ==
--- NOTE | 2024-10-05 09:40 | MHC.PT.EP ---
[facility] [place] Office [place] [facility] [place] Office [address] Robin Souza [address] [phone] F: [phone] F: [phone] F: [phone] F: [phone] Physical Therapy Plan of Care Date of Evaluation: 10/05/24 Date of Surgery: n/a Diagnosis: pain in R shoulder Assessment: Patient is a 64 year old female presenting to PT with complaints of pain in her R shoulder. Pt reports onset of pain began months ago due to insidious onset. She presents today with impairments in pain, ROM, shoulder strength, posture. Pt's current occupation is none, with baseline physical activities including ADLs, household duties. Pt expresses penitentiary goal of reducing pain, and is motivated to work towards this in PT. Clinical presentation today is most consistent with signs and sx associated with R shoulder pain and pt will benefit from skilled PT 2 week x 4 weeks to address the following problems and impairments noted upon evaluation: pain, ROM, shoulder strength, posture. These problems limit the patient with the following functional activities: ADLs, household duties. The prescribed treatment plan of care is medically necessary. Co-morbidities of afib, DM were identified and taken into considerations of plan of care. Pt was educated on HEP, role of PT, prognosis, POC. Frequency and Duration: The patient will be seen 2 x week x 4 weeks Short Term Goals: Pt will demonstrate improved R shoulder ROM to equal B in 2 weeks. Pt will demonstrate improved R shoulder MMT strength by 1/3 grade in 2 weeks. Pt will need min to no cues during session for posture in 2 weeks. Shelter Goals: Pt will demonstrate improved SPADI score by 13 points in 4 weeks for improved functional mobility. Pt will demonstrate ability to sleep through the night with min to no pain in 4 weeks for return to PLOF. Pt will demonstrate ability to complete ADLs with min to no pain in 4 weeks for return to PLOF. Treatment Plan: Modalities to reduce pain, spasms and effusion. Manual therapy to restore motion and function. Therapeutic exercise to improve strength and flexibility. Neuromuscular re-education for posture and balance. Therapeutic activities to return to functional activities of daily living. Electronically signed by: Camila Downs, PT, DPT, ATC Please sign and return to therapist. Thank you for your referral.
--- NOTE | 2024-12-08 11:20 | MHC.PT.DC ---
[facility] [place] Office [place] Office [place] Office [address] Robin Souza [address] [phone] F: [phone] F: [phone] F: [phone] F: [phone] Physical Therapy Discharge Report Diagnosis: pain in R shoulder Date of Surgery: n/a Date of Evaluation: 10/05/24 Date of Discharge: 12/08/24 Treatments to Date: 3 Cancellations to Date: 2 No Shows to Date: 0 Discharge Status: Patient Elected to Stop Discharge Summary: Pt cancelled her last scheduled appointment and did not call to be scheduled in > 30 days. Therefore to be d/c. Electronically signed by: Camila Downs, PT, DPT, ATC Please sign and return to therapist. Thank you for your referral.
== END 2024-12-08 11:21 | disposition home or self-care (01) ==
LOC: HO.PTCHIC 09:00
PROVIDERS: PCP Internal Medicine; Visit Provider Internal Medicine
DX: M25.511 Pain in right shoulder (principal)
CPT/HCPCS: 97110; 97161